=== PATIENT | female | born 1930 | race Caucasian/White ===

== ENCOUNTER 2016-05-25 03:45 | Emergency (ER) | payer MEDICARE, BC ==
[2016-05-25] MEDS ORDERED: Diltiazem 25 MG/5 ML SDV IVPUSH ONE ×2 (04:06→04:15)
--- NOTE | 2016-05-25 04:08 | EDM.PDOC ---
[id number] 4d CHEST PAINS Time Seen by Provider: 05/25/16 04:03 Source of Information: Reports: Patient History Limitations: Reports: No limitations - History of Present Illness INITIAL COMMENTS - FREE TEXT/NARRATIVE: 85 yo white female w/ PMMHx. A-Fib c/o awoke @ 1:30AM not feeling well then @ 2: 30AM developed Chest Pains with emesis Onset: gradual Onset Date: 05/25/16 Onset Time: 01:30 Duration: Hour(s): Location: Reports: chest Quality: Reports: Pressure Severity: moderate Chest Pain Score (Numeric/FACES): 6 - Related Data Allergies Allergy/AdvReac Type Severity Reaction Status Date / Time atorvastatin calcium Allergy Unknown UNKNOWN Verified 05/25/16 05:33 [From Lipitor] buprenorphine Allergy Unknown UNKNOWN Verified 05/25/16 05:33 diazepam [From Valium] Allergy Unknown UNKNOWN Verified 05/25/16 05:33 ezetimibe [From Vytorin] Allergy Unknown UNKNOWN Verified 05/25/16 05:33 lorazepam [From Ativan] Allergy Unknown UNKNOWN Verified 05/25/16 05:33 pentazocine lactate Allergy Unknown UNKNOWN Verified 05/25/16 05:33 [From Talwin] propoxyphene Allergy Unknown UNKNOWN Verified 05/25/16 05:33 rosuvastatin calcium Allergy Unknown UNKNOWN Verified 05/25/16 05:33 [From Crestor] simvastatin [From Vytorin] Allergy Unknown UNKNOWN Verified 05/25/16 05:33 codeine Allergy unknown Verified 05/25/16 05:33 morphine Allergy Itching Verified 05/25/16 05:33 nefazodone [Nefazodone] Allergy Insomnia Verified 05/25/16 05:33 oxycodone [Oxycodone] Allergy unknown Verified 05/25/16 05:33 trazodone Allergy Insomnia Verified 05/25/16 05:33 Home Meds: Home Meds Aspirin [Halfprin] 81 mg PO DAILY 10/31/13 [History] Nitroglycerin [Nitrostat] 0.4 mg PO ASDIRECTED PRN 10/31/13 [History] Pitavastatin Calcium [Livalo] 1 mg PO DAILY 08/01/14 [History] Acetaminophen [Acetaminophen Extra Strength] 500 mg PO Q6H PRN 12/14/14 [History ] Clopidogrel Bisulfate [Clopidogrel] 75 mg PO DAILY 09/10/15 [History] Pantoprazole Sodium [Protonix] 20 mg PO DAILY 09/10/15 [History] Diltiazem [Cardizem CD] 120 mg PO DAILY 30 Days 02/24/16 [Rx] Past Medical History Other HEENT History: wears corrective lenses; She has ringing ears both sides Cardiovascular History: Reports: Afib, High cholesterol Respiratory History: Reports: Bronchitis, recurrent Gastrointestinal History: Reports: GERD, Hemorrhoids Genitourinary History: Reports: Renal calculus Other OB/BYN History: 5 NVD and 1 miscarriage Musculoskeletal History: Reports: Arthritis Psychiatric History: Reports: Anxiety, Depression - Infectious Disease History Infectious Disease History: Reports: Chicken pox, Measles - Past Surgical History Cardiovascular Surgical History: Reports: Coronary artery stent Social & Family History - Family History Family Medical History: Noncontributory - Tobacco Use Smoking Status *Q: Never Smoker Second Hand Smoke Exposure: No - Caffeine Use Caffeine Use: Reports: None - Alcohol Use Days Per Week of Alcohol Use: 0 - Recreational Drug Use Recreational Drug Use: No ED ROS GENERAL - Review of Systems Review Of Systems: See Below Constitutional: Reports: no symptoms HEENT: Reports: No symptoms Respiratory: Reports: No Symptoms Cardiovascular: Reports: Chest pain Endocrine: Reports: no symptoms GI/Abdominal: Reports: No symptoms : Reports: no symptoms Musculoskeletal: Reports: no symptoms Skin: Reports: no symptoms Neurological: Reports: No Symptoms Psychiatric: Reports: No symptoms Hematologic/Lymphatic: Reports: no symptoms Immunologic: Reports: no symptoms ED EXAM, GENERAL - Physical Exam Exam: See Below Exam Limited By: No limitations General Appearance: alert, WD/WN Eye Exam: bilateral eye: PERRL Ears: normal external exam Nose: normal inspection Throat/Mouth: Normal inspection Head: atraumatic Neck: normal inspection Respiratory/Chest: no respiratory distress, lungs clear Cardiovascular: tachycardia, irregularly irregular Peripheral Pulses: 2+: carotid (L), carotid (R) Back Exam: normal inspection Extremities: normal inspection, normal range of motion Neurological: alert, oriented, CN II-XII intact, normal cognition Psychiatric: normal affect Skin Exam: Warm, Dry Course - Vital Signs Text/Narrative:: discussed case with patient's [facility]rier Dr. Zhang at [facility] in [place] Last Recorded V/S: Last Vital Signs Temp 35.9 C 05/25/16 03:56 Pulse 77 05/25/16 05:43 Resp 20 05/25/16 05:43 BP 124/73 05/25/16 05:43 Pulse Ox 100 05/25/16 05:43 - Orders/Labs/Meds Labs: Laboratory Tests 05/25/16 05/25/16 05/25/16 Range/Units 04:00 04:00 04:00 WBC 9.2 (5.0-10.0) 10^3/uL RBC 4.45 (4.2-5.4) 10^6/uL Hgb 14.2 (12.0-16.0) g/dL Hct 42.8 (37.0-47.0) % MCV 96.2 (80-100) fL MCH 31.9 (27.0-34.0) pg MCHC 33.2 (33.0-35.0) g/dL Plt Count 177 (150-450) 10^3/uL Neut % (Auto) 90.7 H (42.2-75.2) % Lymph % (Auto) 5.0 L (20.5-50.1) % [place] % (Auto) 3.8 (2-8) % Eos % (Auto) 0.4 L (1.0-3.0) % Baso % (Auto) 0.1 (0.0-1.0) % PT 9.9 (9.0-12.0) SEC INR 1.0 (0.9-1.2) D-Dimer, Quantitative 2160 H (0-400) ng/mL Sodium 142 (135-145) mmol/L Potassium 3.5 L (3.6-5.0) mmol/L Chloride 109 (101-111) mmol/L Carbon Dioxide 24.0 (21.0-31.0) mmol/L Anion Gap 12.5 BUN 12 (7-18) mg/dL Creatinine 0.6 (0.6-1.3) mg/dL Est Cr Clr Drug Dosing 66.51 mL/min Estimated GFR (MDRD) > 60 BUN/Creatinine Ratio 20.00 Glucose 128 H (74-105) mg/dL Calcium 8.9 (8.4-10.2) mg/dl Total Bilirubin 0.6 (0.2-1.0) mg/dL AST 17 (10-42) IU/L ALT 14 (10-60) IU/L Alkaline Phosphatase 39 L (42-121) IU/L Troponin I < 0.02 (0.00-0.02) ng/ml B-Natriuretic Peptide 145 H (0-100) pg/ml Total Protein 6.6 L (6.7-8.2) g/dl Albumin 4.0 (3.2-5.5) g/dl Globulin 2.6 Albumin/Globulin Ratio 1.54 Meds: Medications Discontinued Medications Generic Name Dose Route Start Last Admin Trade Name Freq PRN Reason Stop Dose Admin Digoxin 125 mcg 05/25/16 04:41 05/25/16 04:48 Lanoxin IVPUSH 05/25/16 04:42 125 mcg ONETIME ONE Administration Digoxin 125 mcg 05/25/16 04:44 05/25/16 06:03 Lanoxin IVPUSH 05/25/16 04:45 Not Given ONETIME ONE Diltiazem HCl 5 mg 05/25/16 04:06 05/25/16 04:10 Diltiazem IVPUSH 05/25/16 04:07 5 mg ONETIME ONE Administration Diltiazem HCl 25 mg 05/25/16 04:15 05/25/16 04:19 Diltiazem IVPUSH 05/25/16 04:16 20 mg ONETIME ONE Administration Sodium Chloride 1,000 mls @ 100 mls/hr 05/25/16 04:15 05/25/16 04:09 Normal Saline IV 100 mls/hr ASDIRECTED DEBBIE Administration Diltiazem HCl 100 mg/ Sodium 100 mls @ 5 mls/hr 05/25/16 04:30 Chloride IV TITRATE DEBBIE Protocol 5 MG/HR Sodium Chloride 1,000 mls @ 100 mls/hr 05/25/16 04:45 05/25/16 04:40 Normal Saline IV 100 mls/hr ASDIRECTED DEBBIE Administration Iopamidol 100 ml 05/25/16 04:53 05/25/16 05:28 Isovue-370 (76%) IVPUSH 05/25/16 04:54 73 ml ONETIME ONE Administration Ondansetron HCl 4 mg 05/25/16 04:13 05/25/16 04:17 Zofran IV 05/25/16 04:14 4 mg ONETIME ONE Administration Ondansetron HCl 4 mg 05/25/16 06:10 05/25/16 06:12 Zofran IV 05/25/16 06:11 4 mg ONETIME ONE Administration Ondansetron HCl Confirm 05/25/16 06:10 Zofran Administered 05/25/16 06:11 Dose 4 mg .ROUTE .STK-MED ONE Departure - Departure Time of Disposition: 06:45 Disposition: DC/Tfer to Other 70 Condition: fair Clinical Impression: Paroxysmal supraventricular tachycardia, Elevated d-dimer, Hypokalemia Forms: ED Department Discharge, Interfacility Transfer EMTALA
[2016-05-25] MEDS ORDERED: Ondansetron 4 MG/2 ML SDV IV ONE ×2 (04:13→06:10)
[2016-05-25] MEDS ORDERED: Sodium Chloride 0.9% 1,000 ML IV SCH ×2 (04:15→04:45)
[2016-05-25 04:27] LABS: CHLORIDE,CL 109 mmol/L (101-111); SODIUM,NA 142 mmol/L (135-145)
[2016-05-25] MEDS ORDERED: Diltiazem 100 MG in Sodium Chloride 0.9% 100 ML IV SCH (04:30)
[2016-05-25] MEDS ORDERED: Digoxin 500 MCG/2 ML Amp IVPUSH ONE ×2 (04:41→04:44)
[2016-05-25] MEDS ORDERED: Iopamidol 755 Mg/ML 100 ML Bottle IVPUSH ONE (04:53)
[2016-05-25 05:44] VITALS: BP 124/73
[2016-05-25] MEDS ORDERED: Ondansetron 4 MG/2 ML SDV ONE (06:10)
--- NOTE | 2016-07-26 10:52 | EKG ---
05/25/2016 - JOEY CASTANO - TIME: 03:46 p.m. EKG shows supraventricular tachycardia, rate of [address]- segment changes. [facility] /[id number]
== END 2016-05-25 06:36 | disposition other institution (70) ==
LOC: DL.ED 03:45
DX: I47.1 Supraventricular tachycardia (principal); E87.6 Hypokalemia; I48.91 Unspecified atrial fibrillation; E78.00 Pure hypercholesterolemia, unspecified; K21.9 Gastro-esophageal reflux disease without esophagitis; F41.9 Anxiety disorder, unspecified; F32.9 Major depressive disorder, single episode, unspecified; M19.90 Unspecified osteoarthritis, unspecified site; Z88.8 Allergy status to other drugs, medicaments and biological substances; Z88.5 Allergy status to narcotic agent; Z79.82 Long term (current) use of aspirin; Z79.899 Other long term (current) drug therapy
CPT/HCPCS: 36415; 71010; 71260; 80053; 83880; 84484; 85025; 85379; 85610; 96361; 96374; 96375; 96376; 99285; J1160; J2405; J7030; Q9967; J3490

== ENCOUNTER 2016-08-17 15:33 | Emergency (ER) | payer MEDICARE, BC ==
[2016-08-17 15:43] VITALS: BP 182/66
--- NOTE | 2016-08-17 16:45 | EDM.PDOC ---
ED HPI GENERAL MEDICAL PROBLEM - General Chief Complaint: Trauma Stated Complaint: FELL AND HAS OPEN CUTS ON HER ARM, [id number] Time Seen by Provider: 08/17/16 16:30 Source of Information: Reports: Patient History Limitations: Reports: No Limitations - History of Present Illness INITIAL COMMENTS - FREE TEXT/NARRATIVE: This 86 yo female patient reports to the ED with open wounds on her left elbow and left knee. The patient reports she was walking on the sidewalk and tripped over a small rise in the sidewalk. The patient reports she did lay on the ground for quite a while until a gentleman helped her up. The patient reports no pain in the areas and has been walking and moving both effected extremities. The patient is on blood thinner (Plavix). Onset: Today Duration: Minutes: Location: Reports: Upper Extremity, Left, Lower Extremity, Left Quality: Reports: Dull Severity: Moderate Improves with: Reports: None Worsens with: Reports: None Associated Symptoms: Reports: No Other Symptoms Left Arm Pain Score (Numeric/FACES): 1 - Related Data Allergies Allergy/AdvReac Type Severity Reaction Status Date / Time atorvastatin calcium Allergy Unknown UNKNOWN Verified 08/17/16 15:47 [From Lipitor] buprenorphine Allergy Unknown UNKNOWN Verified 08/17/16 15:47 diazepam [From Valium] Allergy Unknown UNKNOWN Verified 08/17/16 15:47 ezetimibe [From Vytorin] Allergy Unknown UNKNOWN Verified 08/17/16 15:47 lorazepam [From Ativan] Allergy Unknown UNKNOWN Verified 08/17/16 15:47 pentazocine lactate Allergy Unknown UNKNOWN Verified 08/17/16 15:47 [From Talwin] propoxyphene Allergy Unknown UNKNOWN Verified 08/17/16 15:47 rosuvastatin calcium Allergy Unknown UNKNOWN Verified 08/17/16 15:47 [From Crestor] simvastatin [From Vytorin] Allergy Unknown UNKNOWN Verified 08/17/16 15:47 codeine Allergy unknown Verified 08/17/16 15:47 morphine Allergy Itching Verified 08/17/16 15:47 nefazodone [Nefazodone] Allergy Insomnia Verified 08/17/16 15:47 oxycodone [Oxycodone] Allergy unknown Verified 08/17/16 15:47 trazodone Allergy Insomnia Verified 08/17/16 15:47 Home Meds: Home Meds Aspirin [Halfprin] 81 mg PO DAILY 10/31/13 [History] Nitroglycerin [Nitrostat] 0.4 mg PO ASDIRECTED PRN 10/31/13 [History] Acetaminophen [Acetaminophen Extra Strength] 500 mg PO Q6H PRN 12/14/14 [History ] Clopidogrel Bisulfate [Clopidogrel] 75 mg PO DAILY 09/10/15 [History] Pantoprazole Sodium [Protonix] 20 mg PO DAILY 09/10/15 [History] Digoxin 125 mcg PO DAILY 08/01/16 [History] Past Medical History HEENT History: Reports: Impaired Vision Other HEENT History: wears corrective lenses; She has ringing ears both sides Cardiovascular History: Reports: Afib, High Cholesterol Respiratory History: Reports: Bronchitis, Recurrent Gastrointestinal History: Reports: GERD, Hemorrhoids Genitourinary History: Reports: Renal Calculus Other OB/BYN History: 5 NVD and 1 miscarriage Musculoskeletal History: Reports: Arthritis Neurological History: Reports: None Psychiatric History: Reports: Anxiety, Depression Endocrine/Metabolic History: Reports: None Hematologic History: Reports: None Immunologic History: Reports: None Oncologic (Cancer) History: Reports: None Dermatologic History: Reports: None - Infectious Disease History Infectious Disease History: Reports: Chicken Pox, Measles - Past Surgical History Cardiovascular Surgical History: Reports: Coronary Artery Stent Social & Family History - Family History Family Medical History: Noncontributory - Tobacco Use Smoking Status *Q: Never Smoker Second Hand Smoke Exposure: No - Caffeine Use Caffeine Use: Reports: None - Alcohol Use Days Per Week of Alcohol Use: 0 - Recreational Drug Use Recreational Drug Use: No Review of Systems - Review of Systems Review Of Systems: ROS reveals no pertinent complaints other than HPI. ED EXAM, GENERAL - Physical Exam Exam: See Below Exam Limited By: No Limitations General Appearance: Alert, WD/WN, No Apparent Distress Eye Exam: Bilateral Eye: EOMI, Normal Inspection, PERRL Ears: Normal External Exam, Normal Canal, Hearing Grossly Normal, Normal TMs Nose: Normal Inspection, Normal Mucosa, No Blood Throat/Mouth: Normal Inspection, Normal Lips, Normal Teeth, Normal Gums, Normal Oropharynx, Normal Voice, No Airway Compromise Head: Atraumatic, Normocephalic Neck: Normal Inspection, Supple, Non-Tender, Full Range of Motion Respiratory/Chest: No Respiratory Distress, Lungs Clear, Normal Breath Sounds, No Accessory Muscle Use, Chest Non-Tender Cardiovascular: Normal Peripheral Pulses, Regular Rate, Rhythm, No Edema, No Gallop, No JVD, No Murmur, No Rub GI/Abdominal: Normal Bowel Sounds, Soft, Non-Tender, No Organomegaly, No Distention, No Abnormal Bruit, No Mass (Female) Exam: Deferred Rectal (Female) Exam: Deferred Back Exam: Normal Inspection, Full Range of Motion, NT Extremities: Normal Range of Motion, Non-Tender, No Pedal Edema, Normal Capillary Refill Neurological: Alert, Oriented, CN II-XII Intact, Normal Cognition, Normal Gait, Normal Reflexes, No Motor/Sensory Deficits Psychiatric: Normal Affect, Normal Mood Skin Exam: Warm, Dry, Normal Color, No Rash, Other (skin tears to the patient's left elbow (3 cm, 4 cm and 6 cm) and left knee (5 cm)) Lymphatic: No Adenopathy ED TRAUMA PROCEDURES - Laceration/Wound Repair Left Lateral Elbow Lac/Wound Length In cm: 13 (6 cm, 4 cm and 3 cm) Appearance: Superficial Distal NVT: Neuro & Vascular Intact Skin Prep: Saline Exploration/Debridement/Repair: Wound Explored, in a Bloodless Field, Explored to Base Closed With: Steri-Strips, Other (tegaderm) Sterile Dressing Applied: Nurse Tetanus Status Addressed: Yes Complications: No Left Lateral Knee Lac/Wound Length In cm: 5 Appearance: Superficial Distal NVT: Neuro & Vascular Intact Skin Prep: Saline Exploration/Debridement/Repair: Wound Explored Closed With: Steri-Strips Course - Vital Signs Last Recorded V/S: Last Vital Signs Temp 36.6 C 08/17/16 15:42 Pulse 91 08/17/16 15:42 Resp 20 08/17/16 15:42 BP 182/66 H 08/17/16 15:42 Pulse Ox 98 08/17/16 15:42 Departure - Departure Time of Disposition: 16:47 Disposition: Home, Self-Care 01 Condition: Fair Clinical Impression: Skin tear of elbow without complication Qualifiers: Encounter type: initial encounter Laterality: left Qualified Code(s): S51.012A - Laceration without foreign body of left elbow, initial encounter Skin tear of left lower leg without complication Qualifiers: Encounter type: initial encounter Qualified Code(s): S81.812A - Laceration without foreign body, left lower leg, initial encounter - Discharge Information Instructions: Laceration Care, Adult, Contusion, [id number] Forms: ED Department Discharge Care Plan Goals: The patient was advised of the examination results during the visit. The patient 's wounds were dressed while in the ED with good approximation of skin margins. The patient was encouraged to avoid removing the dressings until they fall off. If the patient has any additional symptoms or concerns, the patient should follow-up with her primary care facility or return to the emergency department.
== END 2016-08-17 17:18 | disposition home or self-care (01) ==
LOC: DL.ED 15:33
DX: S51.012A Laceration without foreign body of left elbow, initial encounter (principal); S81.812A Laceration without foreign body, left lower leg, initial encounter; I48.91 Unspecified atrial fibrillation; E78.00 Pure hypercholesterolemia, unspecified; K21.9 Gastro-esophageal reflux disease without esophagitis; F32.9 Major depressive disorder, single episode, unspecified; F41.9 Anxiety disorder, unspecified; Z95.4 Presence of other heart-valve replacement; Z79.82 Long term (current) use of aspirin; Z79.899 Other long term (current) drug therapy; Z88.8 Allergy status to other drugs, medicaments and biological substances; Z88.5 Allergy status to narcotic agent; Z88.6 Allergy status to analgesic agent; W01.0XXA Fall on same level from slipping, tripping and stumbling without subsequent striking against object, initial encounter
CPT/HCPCS: 99283; 99284

== ENCOUNTER 2016-09-08 19:05 | Emergency (ER) | payer MEDICARE, BC ==
--- NOTE | 2016-09-08 19:34 | EDM.PDOC ---
ED HPI GENERAL MEDICAL PROBLEM - General Chief Complaint: Neuro Symptoms/Deficits Stated Complaint: DIZZY [id number] Time Seen by Provider: 09/08/16 19:29 Source of Information: Reports: Patient History Limitations: Reports: No Limitations - History of Present Illness INITIAL COMMENTS - FREE TEXT/NARRATIVE: states hadn't been feeling well since April after her At Fib got out of control , been having dizziness on off since then but today it won't go away, saw PMD yesterday for this but nothing was done except for discussion about her catarract. denies vertigo sensation , no head congestion, no CP/SOB but been feeling weak without energy. appetite ok, not sure what's going on with her. - Related Data Allergies Allergy/AdvReac Type Severity Reaction Status Date / Time atorvastatin calcium Allergy Unknown UNKNOWN Verified 08/17/16 15:47 [From Lipitor] buprenorphine Allergy Unknown UNKNOWN Verified 08/17/16 15:47 diazepam [From Valium] Allergy Unknown UNKNOWN Verified 08/17/16 15:47 ezetimibe [From Vytorin] Allergy Unknown UNKNOWN Verified 08/17/16 15:47 lorazepam [From Ativan] Allergy Unknown UNKNOWN Verified 08/17/16 15:47 pentazocine lactate Allergy Unknown UNKNOWN Verified 08/17/16 15:47 [From Talwin] propoxyphene Allergy Unknown UNKNOWN Verified 08/17/16 15:47 rosuvastatin calcium Allergy Unknown UNKNOWN Verified 08/17/16 15:47 [From Crestor] simvastatin [From Vytorin] Allergy Unknown UNKNOWN Verified 08/17/16 15:47 codeine Allergy unknown Verified 08/17/16 15:47 morphine Allergy Itching Verified 08/17/16 15:47 nefazodone [Nefazodone] Allergy Insomnia Verified 08/17/16 15:47 oxycodone [Oxycodone] Allergy unknown Verified 08/17/16 15:47 trazodone Allergy Insomnia Verified 08/17/16 15:47 Home Meds: Home Meds Aspirin [Halfprin] 81 mg PO DAILY 10/31/13 [History] Nitroglycerin [Nitrostat] 0.4 mg PO ASDIRECTED PRN 10/31/13 [History] Acetaminophen [Acetaminophen Extra Strength] 500 mg PO Q6H PRN 12/14/14 [History ] Clopidogrel Bisulfate [Clopidogrel] 75 mg PO DAILY 09/10/15 [History] Pantoprazole Sodium [Protonix] 20 mg PO DAILY 09/10/15 [History] Digoxin 125 mcg PO DAILY 08/01/16 [History] Past Medical History HEENT History: Reports: Impaired Vision Other HEENT History: wears corrective lenses; She has ringing ears both sides Cardiovascular History: Reports: Afib, High Cholesterol Respiratory History: Reports: Bronchitis, Recurrent Gastrointestinal History: Reports: GERD, Hemorrhoids Genitourinary History: Reports: Renal Calculus Other OB/BYN History: 5 NVD and 1 miscarriage Musculoskeletal History: Reports: Arthritis Neurological History: Reports: None Psychiatric History: Reports: Anxiety, Depression Endocrine/Metabolic History: Reports: None Hematologic History: Reports: None Immunologic History: Reports: None Oncologic (Cancer) History: Reports: None Dermatologic History: Reports: None - Infectious Disease History Infectious Disease History: Reports: Chicken Pox, Measles - Past Surgical History Cardiovascular Surgical History: Reports: Coronary Artery Stent Social & Family History - Family History Family Medical History: Noncontributory - Tobacco Use Smoking Status *Q: Never Smoker Second Hand Smoke Exposure: No - Caffeine Use Caffeine Use: Reports: None - Alcohol Use Days Per Week of Alcohol Use: 0 - Recreational Drug Use Recreational Drug Use: No ED ROS GENERAL - Review of Systems Review Of Systems: ROS reveals no pertinent complaints other than HPI. ED EXAM, NEURO - Physical Exam Exam: See Below Exam Limited By: No Limitations General Appearance: Alert, WD/WN, Mild Distress, Other (distraught) Eye Exam: Bilateral Eye: PERRL (pupils ER @ 4mm) Ears: Hearing Grossly Normal Throat/Mouth: Normal Voice, No Airway Compromise Head Exam: Atraumatic Neck: Non-Tender, Full Range of Motion Respiratory/Chest: No Respiratory Distress Cardiovascular: Regular Rate, Rhythm GI/Abdominal: Soft, Non-Tender Neurological: Alert, No Motor/Sensory Deficits, Oriented x 3 Extremities: Pedal Edema (1+ bilateral) Psychiatric: Flat Affect Skin Exam: Warm, Dry Course - Vital Signs Last Recorded V/S: Last Vital Signs Temp 37.7 C 09/08/16 20:11 Pulse 86 09/08/16 20:11 Resp 24 H 09/08/16 20:11 BP 125/48 L 09/08/16 20:11 Pulse Ox 95 09/08/16 20:11 - Orders/Labs/Meds Orders: Active Orders 24 hr Category Date Time Status EKG Documentation Completion [RC] STAT Care 09/08/16 19:28 Active Labs: Laboratory Tests 09/08/16 09/08/16 09/08/16 Range/Units 19:17 19:35 19:35 WBC 3.6 L (5.0-10.0) 10^3/uL RBC 4.23 (4.2-5.4) 10^6/uL Hgb 13.1 (12.0-16.0) g/dL Hct 40.8 (37.0-47.0) % MCV 96.5 (80-100) fL MCH 31.0 (27.0-34.0) pg MCHC 32.1 L (33.0-35.0) g/dL Plt Count 170 (150-450) 10^3/uL Neut % (Auto) 87.3 H (42.2-75.2) % Lymph % (Auto) 7.2 L (20.5-50.1) % [place] % (Auto) 5.2 (2-8) % Eos % (Auto) 0.0 L (1.0-3.0) % Baso % (Auto) 0.3 (0.0-1.0) % Sodium 137 (135-145) mmol/L Potassium 3.6 (3.6-5.0) mmol/L Chloride 103 (101-111) mmol/L Carbon Dioxide 24.0 (21.0-31.0) mmol/L Anion Gap 13.6 BUN 11 (7-18) mg/dL Creatinine 0.7 (0.6-1.3) mg/dL Est Cr Clr Drug Dosing TNP Estimated GFR (MDRD) > 60 BUN/Creatinine Ratio 15.71 Glucose 187 H (74-105) mg/dL Calcium 8.8 (8.4-10.2) mg/dl Total Bilirubin 0.7 (0.2-1.0) mg/dL AST 28 (10-42) IU/L ALT 21 (10-60) IU/L Alkaline Phosphatase 53 (42-121) IU/L Troponin I 0.05 H* (0.00-0.02) ng/ml B-Natriuretic Peptide 313 H (0-100) pg/ml Total Protein 6.5 L (6.7-8.2) g/dl Albumin 3.5 (3.2-5.5) g/dl Globulin 3.0 Albumin/Globulin Ratio 1.17 Urine Color Yellow (YELLOW) Urine Appearance Slightly cloudy (CLEAR) Urine pH 7.0 (5.0-9.0) Ur Specific [place] 1.015 (1.005-1.030) Urine Protein 30 H (NEGATIVE) Urine Glucose (UA) Negative (NEGATIVE) Urine Ketones 15 H (NEGATIVE) Urine Occult Blood Negative (NEGATIVE) Urine Nitrite Negative (NEGATIVE) Urine Bilirubin Negative (NEGATIVE) Urine Urobilinogen >=8.0 H (0.2-1.0) mg/dL Ur Leukocyte Esterase Trace H (NEGATIVE) Urine RBC 0-5 /HPF Urine WBC 10-20 H (0-5/HPF) /HPF Ur Epithelial Cells Many H /HPF Urine Bacteria Many H (0-FEW/HPF) /HPF Urine Mucus Many H /LPF - Re-Assessments/Exams Free Text/Narrative Re-Assessment/Exam: 09/08/16 20:[address] Toussaint @ who kindly accepted Pt. Departure - Departure Time of Disposition: 20:27 Disposition: DC/Tfer to Acute Hospital 02 Condition: Good Clinical Impression: Elevated troponin I level, Dizziness - Discharge Information Forms: Interfacility Transfer EMTALA - My Orders Last 24 Hours: My Active Orders 09/08/16 19:28 EKG Documentation Completion [RC] STAT - Assessment/Plan Last 24 Hours: My Active Orders 09/08/16 19:28 EKG Documentation Completion [RC] STAT
[2016-09-08 20:05] LABS: CHLORIDE,CL 103 mmol/L (101-111); SODIUM,NA 137 mmol/L (135-145)
[2016-09-08 20:11] VITALS: BP 125/48
--- NOTE | 2016-09-12 10:32 | EKG ---
09/08/2016 - JOEY CASTANO I reviewed the EKG and agree with the machine's reading. [facility] /[id number]
== END 2016-09-08 20:55 ==
LOC: DL.ED 19:05
DX: R42 Dizziness and giddiness (principal); R79.89 Other specified abnormal findings of blood chemistry; I48.91 Unspecified atrial fibrillation; E78.00 Pure hypercholesterolemia, unspecified; K21.9 Gastro-esophageal reflux disease without esophagitis; F41.9 Anxiety disorder, unspecified; F32.9 Major depressive disorder, single episode, unspecified; Z95.5 Presence of coronary angioplasty implant and graft; Z79.82 Long term (current) use of aspirin; Z79.899 Other long term (current) drug therapy; Z88.5 Allergy status to narcotic agent
CPT/HCPCS: 36415; 70450; 71010; 80053; 81001; 83880; 84484; 85025; 93005; 93010; 99284; 99285

== ENCOUNTER 2016-09-12 10:12 | Inpatient (IN) | payer MEDICARE, BC ==
[2016-09-12] MEDS ORDERED: Nitroglycerin 0.4 MG Tab.SL SL PRN (16:11)
[2016-09-12] MEDS ORDERED: ACETAMINOPHEN 500 MG PO PRN (16:11)
[2016-09-12] MEDS ORDERED: BISACODYL 10 MG RECTAL PRN (16:11)
[2016-09-12] MEDS ORDERED: [UNRECOGNIZED DRUG - OTHER] PO PRN (16:11)
[2016-09-12] MEDS ORDERED: Ondansetron 4 MG Tab.DIS PO PRN (16:13)
[2016-09-12] MEDS ORDERED: Polyethylene Glycol 3350 Powder 17 GM Packet PO PRN (16:13)
--- NOTE | 2016-09-12 16:56 | PCM.HP ---
H&P History of Present Illness - General Date of Service: 09/12/16 Admit Problem/Dx: Admission Diagnosis/Problem Admission Diagnosis/Problem Weakness Source of Information: Patient History Limitations: Reports: No Limitations - History of Present Illness Initial Comments - Free Text/Narative: 86 y.o. female with past medical history of paroxysmal atrial fibrillation not on chronic anticoagulation due to gastrointestinal bleeding, coronary artery disease with history of NSTEMI status post bifurcation stenting to the ostial left circumflex and ostial left anterior descending artery with drug eluting stent, fibromyalgia, wilson's esophagus, chronic dizziness, benign positional vertigo, carotid artery disease, thoracic degenerative disease, depression, anxiety, diffuse idiopathic skeletal hyperostosis, dyslipidemia and GERD who was admitted to [facility] fordizziness and chest pain. Cardiac workup was negative, including troponin, EKG, evaluation by wire twister. Patient still reporting dizziness while she moves her head. The dizziness occurs while sitting or walking. She became and steady when the dizziness comes while walking. She does not have dizziness if she holds her head still. She was evaluated by physical therapy and it wasn't thought it's benign vertigo. She reported decrease in appetite. Patient denies chest pain, shortness breath, cough, fever, chills, nausea, vomiting, any other symptoms or concern. WBC 1.8 from workup done yesterday. Her UA was suspicious for UTI so she was started on Rocephin for 5 days and changed to Keflex today. However I do not see urine culture done. She reported that she was told that she needs to have cataract surgery done on the right eye. - Related Data Allergies/Adverse Reactions: Allergies Allergy/AdvReac Type Severity Reaction Status Date / Time trazodone Allergy Mild Insomnia Verified 09/12/16 12:15 atorvastatin calcium Allergy Unknown Muscle Verified 09/12/16 12:15 [From Lipitor] Aches buprenorphine Allergy Unknown UNKNOWN Verified 09/12/16 12:15 diazepam [From Valium] Allergy Unknown UNKNOWN Verified 09/12/16 12:15 ezetimibe [From Vytorin] Allergy Unknown Muscle Verified 09/12/16 12:15 Aches lorazepam [From Ativan] Allergy Unknown Depression Verified 09/12/16 12:15 pentazocine lactate Allergy Unknown UNKNOWN Verified 09/12/16 12:15 [From Talwin] propoxyphene Allergy Unknown UNKNOWN Verified 09/12/16 12:15 rosuvastatin calcium Allergy Unknown Muscle Verified 09/12/16 12:15 [From Crestor] Aches simvastatin [From Vytorin] Allergy Unknown Muscle Verified 09/12/16 12:15 Aches codeine Allergy unknown Verified 09/12/16 12:15 morphine Allergy Itching Verified 09/12/16 12:15 nefazodone [Nefazodone] Allergy Insomnia Verified 09/12/16 12:15 oxycodone [Oxycodone] Allergy confusion/s Verified 09/12/16 12:15 edation Home Medications: Home Meds Aspirin [Halfprin] 81 mg PO DAILY 10/31/13 [History] Nitroglycerin [Nitrostat] 0.4 mg PO ASDIRECTED PRN 10/31/13 [History] Acetaminophen [Acetaminophen Extra Strength] 500 mg PO Q6H PRN 12/14/14 [History ] Clopidogrel Bisulfate [Clopidogrel] 75 mg PO DAILY 09/10/15 [History] Pantoprazole Sodium [Protonix] 40 mg PO ACBREAKFAST 09/10/15 [History] Digoxin 125 mcg PO WITHLUNCH 08/01/16 [History] Bisacodyl [Dulcolax] 10 mg RECTAL DAILY PRN 09/12/16 [History] Cephalexin [Keflex] 500 mg PO BID 09/12/16 [History] Cyanocobalamin (Vitamin B-12) [B-12] 1,000 mcg PO DAILY 09/12/16 [History] Potassium Chloride [Klor-Con] 20 meq PO BID 09/12/16 [History] diphenhydrAMINE HCl [Z-Sleep] 30 ml PO BEDTIME 09/12/16 [History] Past Medical History HEENT History: Reports: Cataract, Impaired Vision Other HEENT History: wears corrective lenses, occipital neuralgia Cardiovascular History: Reports: Afib, CAD, High Cholesterol, [place] Respiratory History: Reports: Bronchitis, Recurrent, Pneumonia, Recurrent, Sleep Apnea, Other (See Below) Other Respiratory History: Recurrent aspiration bronchitis/pneumonia Gastrointestinal History: Reports: GERD, GI Bleed, Hemorrhoids, Inflammatory Bowel Disease, Other (See Below) Other Gastrointestinal History: Wilson's esophagus, duodenitis Genitourinary History: Reports: Renal Calculus [employer] 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[employer]OC[employer]ATE History: Reports: Other OB/BYN History: 5 NVD and 1 miscarriage Musculoskeletal History: Reports: Arthritis, Fibromyalgia, Osteoarthritis, Other (See Below) Other Musculoskeletal History: Forestier's disease, DDD, Fall Neurological History: Reports: Vertigo Psychiatric History: Reports: Anxiety, Depression, Other (See Below) Other Psychiatric History: Insomnia, mild memory impairment Endocrine/Metabolic History: Reports: Osteopenia Hematologic History: Reports: Anticoagulation Therapy, Other (See Below) Other Hematologic History: on Plavix for atrial fib Immunologic History: Reports: None Oncologic (Cancer) History: Reports: None Dermatologic History: Reports: None - Infectious Disease History Infectious Disease History: Reports: Chicken Pox, Measles - Past Surgical History HEENT Surgical History: Reports: Adenoidectomy, Tonsillectomy Cardiovascular Surgical History: Reports: Coronary Artery Stent, Varicose Respiratory Surgical History: Reports: None GI Surgical History: Reports: Cholecystectomy, Colonoscopy, EGD, Other (See Below) Other GI Surgeries/Procedures: Tubular Adenoma of colon Female Surgical History: Reports: Hysterectomy, Kidney stone extraction Neurological Surgical History: Reports: None Social & Family History - Family History Family Medical History: Noncontributory - Tobacco Use Smoking Status *Q: Never Smoker Second Hand Smoke Exposure: No - Caffeine Use Caffeine Use: Reports: None - Alcohol Use Days Per Week of Alcohol Use: 0 - Recreational Drug Use Recreational Drug Use: No H&P Review of Systems - Review of Systems: Review Of Systems: See Below General: Denies: Fever, Chills, Night Sweats, Diaphoresis HEENT: Reports: No Symptoms. Denies: Dysphasia, Ear Pain, Eye Pain, Headaches, Rhinitis, Post Nasal Drip Pulmonary: Reports: No Symptoms Cardiovascular: Reports: No Symptoms Gastrointestinal: Reports: No Symptoms Genitourinary: Reports: No Symptoms Musculoskeletal: Reports: No Symptoms Skin: Reports: No Symptoms Psychiatric: Reports: No Symptoms Neurological: Reports: Dizziness. Denies: Headache, Paresthesia, Seizure, Syncope, Tingling, Change in Speech Hematologic/Lymphatic: Reports: No Symptoms Immunologic: Reports: No Symptoms Exam - Exam Exam: See Below - Vital Signs Vital Signs: Last Vital Signs Temp 36.9 C 09/12/16 14:38 Pulse 75 09/12/16 14:38 Resp 20 09/12/16 14:38 BP 130/52 L 09/12/16 14:38 Pulse Ox 100 09/12/16 14:38 Weight: 66.406 kg - Exam General: Alert, Oriented, Cooperative. No: Mild Distress, Moderate Distress, Severe Distress, Sedated, Lethargic, Obtunded HEENT: Conjunctiva Clear, EACs Clear, EOMI, Hearing Intact, Mucosa Moist & [place] , Nares Patent, Normal Nasal Septum, Posterior Pharynx Clear, Pupils Equal, Pupils Reactive, TMs Clear Neck: Supple, Trachea Midline, +2 Carotid Pulse wo Bruit Lungs: Clear to Auscultation, Normal Respiratory Effort Cardiovascular: Regular Rate, Regular Rhythm GI/Abdominal Exam: Normal Bowel Sounds, Soft, Non-Tender, No Organomegaly, No Distention, No Abnormal Bruit, No Mass (Female) Exam: Deferred Rectal (Female) Exam: Deferred Back Exam: Normal Inspection, Full Range of Motion. No: CVA Tenderness (L), CVA Tenderness (R) Extremities: Normal Inspection, Normal Range of Motion, Non-Tender, No Pedal Edema, Normal Capillary Refill Skin: Warm, Dry, Intact Neurological: Cranial Nerves Intact Neuro Extensive - Mental Status: Alert, Oriented x3, Normal Mood/Affect, Normal Cognition Neuro Extensive - Motor, Sensory, Reflexes: CN II-XII Intact Psychiatric: Alert, Normal Affect, Normal Mood *Q Meaningful Use (ADM) - VTE *Q VTE Criteria *Q: - Stroke *Q Stroke Criteria *Q: - AMI *Q AMI Criteria *Q: Problem List Initiated/Reviewed/Updated: Yes Orders Last 24hrs: Active Orders 24 hr Category Date Time Status Patient Status [ADT] Routine ADT 09/12/16 16:13 Active Ambulate [RC] ASDIRECTED Care 09/12/16 16:13 Active Antiembolic Devices [RC] Care 09/12/16 16:15 Active Height and Weight [RC] .wed Care 09/12/16 16:14 Active Intake and Output [RC] ASDIRECTED Care 09/12/16 16:13 Active May Shower [RC] ASDIRECTED Care 09/12/16 16:13 Active Notify Provider Vital Signs [RC] Care 09/12/16 16:14 Active Oxygen Therapy [RC] PRN Care 09/12/16 16:13 Active Up ad Kayla [RC] ASDIRECTED Care 09/12/16 16:13 Active VTE/DVT Education [RC] PER UNIT ROUTINE Care 09/12/16 16:13 Active Vital Signs [RC] .shift Care 09/12/16 16:13 Active OT Evaluation and Treatment [CONS] Routine Cons 09/12/16 16:13 Active PT Evaluation and Treatment [CONS] Routine Cons 09/12/16 16:13 Active Regular Diet [DIET] Diet 09/12/16 Breakfast Active CBC WITH AUTO DIFF [HEME] AM Lab 09/15/16 05:11 Ordered Acetaminophen [Acetaminophen Extra Strength] Med 09/12/16 16:11 Ordered 500 mg PO Q6H PRN Aspirin [Halfprin] Med 09/13/16 09:00 Ordered 81 mg PO DAILY Bisacodyl [Dulcolax] Med 09/12/16 16:11 Ordered 10 mg RECTAL DAILY PRN Cephalexin [Keflex] Med 09/12/16 21:00 Ordered 500 mg PO BID Clopidogrel Bisulfate [Clopidogrel] Med 09/13/16 09:00 Ordered 75 mg PO DAILY Cyanocobalamin (Vitamin B-12) [B-12] Med 09/13/16 09:00 Ordered 1,000 mcg PO DAILY Digoxin [Digoxin] Med 09/13/16 12:00 Ordered 125 mcg PO WITHLUNCH Nitroglycerin [Nitrostat] Med 09/12/16 16:11 Ordered 0.4 mg PO ASDIRECTED PRN Ondansetron [Zofran ODT] Med 09/12/16 16:13 Ordered 4 mg PO Q6H PRN Pantoprazole Sodium [Protonix] Med 09/13/16 06:00 Ordered 40 mg PO ACBREAKFAST Polyethylene Glycol 3350 [MiraLAX] Med 09/12/16 16:13 Ordered 17 gm PO DAILY PRN Potassium Chloride [Klor-Con] Med 09/12/16 21:00 Ordered 20 meq PO BID diphenhydrAMINE HCl [Z-Sleep] Med 09/12/16 21:00 Ordered 30 ml PO BEDTIME Antiembolic Hose [OM.PC] Routine Oth 09/12/16 16:13 Ordered Resuscitation Status Routine Resus Stat 09/12/16 16:13 Ordered Medication Orders Non-Formulary Medication (Acetaminophen [Acetaminophen Extra Strength]) 500 mg PO Q6H PRN PRN Reason: Pain Non-Formulary Medication (Aspirin [Halfprin]) 81 mg PO DAILY DEB[facility] Non-Formulary Medication (Bisacodyl [Dulcolax]) 10 mg RECTAL DAILY PRN PRN Reason: Constipation Non-Formulary Medication (Cephalexin [Keflex]) 500 mg PO BID [facility] Stop: 09/17/16 21:01 Non-Formulary Medication (Clopidogrel Bisulfate [Clopidogrel]) 75 mg PO DAILY [facility] Non-Formulary Medication (Cyanocobalamin (Vitamin B-12) [B-12]) 1,000 mcg PO DAILY DEB[facility] Non-Formulary Medication (Digoxin [Digoxin]) 125 mcg PO WITHLUNCH [facility] Non-Formulary Medication (Nitroglycerin [Nitrostat]) 0.4 mg PO ASDIRECTED PRN PRN Reason: Chest Pain Non-Formulary Medication (Pantoprazole Sodium [Protonix]) 40 mg PO ACBREAKFAST [facility] Non-Formulary Medication (Potassium Chloride [Klor-Con]) 20 meq PO BID [facility] Non-Formulary Medication (Diphenhydramine Hcl [Z-Sleep]) 30 ml PO BEDTIME [facility] Ondansetron HCl (Zofran Odt) 4 mg PO Q6H PRN PRN Reason: nausea, able to take PO Polyethylene Glycol (Miralax) 17 gm PO DAILY PRN PRN Reason: Constipation Assessment/Plan Comment:: Dizziness, multifactorial. She has history of benign proximal vertigo 20 years ago treated with Emanuel maneuver Consult PT/14 Decreased appetite Megace 400 mg 3 times a day Ensure 3 times a day was minimal UTI Continue Keflex for another 5 days Paroxysmal A-fib Continue digoxin It was recommended by wire twister to be on patch for rhythm monitor as an outpatient for a minimum of 14 days H/o CAD Continue aspirin and Plavix GERD Continue on pantoprazole She was to be full code ANA rodriguez for DVT prophylaxis
[2016-09-12] MEDS: POTASSIUM CHLORIDE 20 MEQ PO SCH (18:00)
[2016-09-12] MEDS: MEGESTROL 40 MG/ML PO SCH (21:00)
[2016-09-12] MEDS: CEPHALEXIN 500 MG PO SCH (21:00)
[2016-09-12] MEDS: DIPHENHYDRAMINE HCL PO SCH (21:03)
[2016-09-13] MEDS: PANTOPRAZOLE 40 MG PO SCH (05:41)
[2016-09-13] MEDS: CEPHALEXIN 500 MG PO SCH ×2 (10:21→20:33)
[2016-09-13] MEDS: POTASSIUM CHLORIDE 20 MEQ PO SCH ×2 (10:22→17:53)
[2016-09-13] MEDS: Aspirin 81 MG Tab.EC **PT OWN MED PO SCH (10:22)
[2016-09-13] MEDS: MEGESTROL 40 MG/ML PO SCH ×3 (10:23→20:34)
[2016-09-13] MEDS: CLOPIDOGREL 75 MG PO SCH (10:23)
[2016-09-13] MEDS: CYANOCOBALAMIN 1000 MCG PO SCH (10:24)
[2016-09-13] MEDS: DIGOXIN 125 MCG PO SCH (13:18)
[2016-09-13] MEDS: DIPHENHYDRAMINE HCL PO SCH (20:35)
[2016-09-14] MEDS: PANTOPRAZOLE 40 MG PO SCH (05:52)
[2016-09-14] MEDS: Aspirin 81 MG Tab.EC **PT OWN MED PO SCH (08:25)
[2016-09-14] MEDS: CYANOCOBALAMIN 1000 MCG PO SCH (08:25)
[2016-09-14] MEDS: CEPHALEXIN 500 MG PO SCH ×2 (08:26→21:24)
[2016-09-14] MEDS: MEGESTROL 40 MG/ML PO SCH ×3 (08:27→21:24)
[2016-09-14] MEDS: POTASSIUM CHLORIDE 20 MEQ PO SCH ×2 (08:27→17:41)
[2016-09-14] MEDS: CLOPIDOGREL 75 MG PO SCH (08:27)
[2016-09-14] MEDS: DIGOXIN 125 MCG PO SCH (12:37)
[2016-09-14] MEDS: DIPHENHYDRAMINE HCL PO SCH (21:24)
[2016-09-15] MEDS: PANTOPRAZOLE 40 MG PO SCH (06:18)
[2016-09-15 07:52] VITALS: BP 123/51
[2016-09-15] MEDS: POTASSIUM CHLORIDE 20 MEQ PO SCH (09:32)
[2016-09-15] MEDS: Aspirin 81 MG Tab.EC **PT OWN MED PO SCH (09:33)
[2016-09-15] MEDS: CLOPIDOGREL 75 MG PO SCH (09:33)
[2016-09-15] MEDS: CYANOCOBALAMIN 1000 MCG PO SCH (09:33)
[2016-09-15] MEDS: CEPHALEXIN 500 MG PO SCH (09:33)
[2016-09-15] MEDS: MEGESTROL 40 MG/ML PO SCH ×2 (09:34→14:28)
[2016-09-15] MEDS: DIGOXIN 125 MCG PO SCH (12:13)
--- NOTE | 2016-09-15 12:29 | PCM.DCSUM1 ---
Discharge Summary - Discharge Data Discharge Date: 09/15/16 Discharge Disposition: Home, Self-Care 01 Condition: Good - Patient Summary/Data Consults: Consultations 09/12/16 16:13 OT Evaluation and Treatment [CONS] Routine PT Evaluation and Treatment [CONS] Routine - Patient Instructions Activity: As Tolerated Showering/Bathing: June Shower Notify Provider of: Fever, Nausea and/or Vomiting - Discharge Plan Prescriptions/Med Rec: Cephalexin [Keflex] 500 mg PO BID #6 cap Home Medications: Home Meds Aspirin [Halfprin] 81 mg PO DAILY 10/31/13 [History] Nitroglycerin [Nitrostat] 0.4 mg PO ASDIRECTED PRN 10/31/13 [History] Acetaminophen [Acetaminophen Extra Strength] 500 mg PO Q6H PRN 12/14/14 [History ] Clopidogrel Bisulfate [Clopidogrel] 75 mg PO DAILY 09/10/15 [History] Pantoprazole Sodium [Protonix] 40 mg PO ACBREAKFAST 09/10/15 [History] Digoxin 125 mcg PO WITHLUNCH 08/01/16 [History] Bisacodyl [Dulcolax] 10 mg RECTAL DAILY PRN 09/12/16 [History] Cyanocobalamin (Vitamin B-12) [B-12] 1,000 mcg PO DAILY 09/12/16 [History] Potassium Chloride [Klor-Con] 20 meq PO BID 09/12/16 [History] diphenhydrAMINE HCl [Z-Sleep] 30 ml PO BEDTIME 09/12/16 [History] Cephalexin [Keflex] 500 mg PO BID #6 cap 09/15/16 [Rx] Patient Handouts: Cephalexin tablets or capsules - General Info Date of Service: 09/15/16 Admission Dx/Problem (Free Text: Admission Diagnosis/Problem Admission Diagnosis/Problem Weakness Subjective Update: The patient is an 86-year-old female with medical history PAROXYSMAL atrial fibrillation not on anticoagulation because of previous gastrointestinal bleeding. She also has coronary artery disease with prior history of non-ST elevation myocardial infarction, fibromyalgia dizziness benign positional vertigo, to Dr. cooper longoria. The patient was transferred to swing bed from HOSPITAL because of dizziness.. The dizziness is felt to be multifactorial. She has chronic dizziness and also has had intermittent benign. Paroxysmal vertigo. The patient was started on physical pressure therapy and did well. She feels that she is back to her baseline OB discharged home. The patient was found to have urinary tract infection. She was treated with Keflex continue with that for another 3 days Final diagnoses: Dizziness Urinary tract infection Paroxysmal atrial fibrillation Coronary artery disease Gastrointestinal reflux disease - Review of Systems General: Reports: No Symptoms HEENT: Reports: No Symptoms Pulmonary: Reports: No Symptoms Cardiovascular: Reports: No Symptoms Gastrointestinal: Reports: No Symptoms Genitourinary: Reports: No Symptoms Musculoskeletal: Reports: No Symptoms Skin: Reports: No Symptoms Neurological: Reports: No Symptoms Psychiatric: Reports: No Symptoms - Patient Data Vitals - Most Recent: Last Vital Signs Temp 36.4 C 09/15/16 07:45 Pulse 72 09/15/16 12:13 Resp 16 09/15/16 07:45 BP 123/51 L 09/15/16 07:45 Pulse Ox 96 09/15/16 07:45 Weight - Most Recent: 63.775 kg I&O - Last 24 hours: Intake & Output 09/14/16 09/15/16 09/15/16 22:59 06:59 14:59 Intake Total 500 150 320 Balance 500 150 320 Lab Results - Last 24 hrs: Laboratory Results - last 24 hr 09/15/16 Range/Units 06:17 WBC 4.7 L (5.0-10.0) 10^3/uL RBC 3.69 L (4.2-5.4) 10^6/uL Hgb 11.4 L (12.0-16.0) g/dL Hct 35.3 L (37.0-47.0) % MCV 95.7 (80-100) fL MCH 30.9 (27.0-34.0) pg MCHC 32.3 L (33.0-35.0) g/dL Plt Count 224 (150-450) 10^3/uL Neut % (Auto) 74.9 (42.2-75.2) % Lymph % (Auto) 13.3 L (20.5-50.1) % [place] % (Auto) 10.3 H (2-8) % Eos % (Auto) 1.3 (1.0-3.0) % Baso % (Auto) 0.2 (0.0-1.0) % Med Orders - Current: Current Medications Acetaminophen (Tylenol Extra Strength) 500 mg PO Q6H PRN PRN Reason: Pain Aspirin (Halfprin) 81 mg PO DAILY [facility] Last Admin: 09/15/16 09:33 Dose: 81 mg Bisacodyl (Dulcolax) 10 mg RECTAL DAILY PRN PRN Reason: Constipation Cephalexin (Keflex) 500 mg PO BID [facility] Stop: 09/17/16 21:01 Last Admin: 09/15/16 09:33 Dose: 500 mg Clopidogrel Bisulfate (Plavix) 75 mg PO DAILY [facility] Last Admin: 09/15/16 09:33 Dose: 75 mg Digoxin (Lanoxin) 125 mcg PO WITHLUNCH [facility] Last Admin: 09/15/16 12:13 Dose: 125 mcg Megestrol Acetate (Megace 40 Mg/Ml Susp) 400 mg PO TID [facility] Last Admin: 09/15/16 09:34 Dose: 400 mg Nitroglycerin (Nitrostat) 0.4 mg SL Q5M PRN PRN Reason: Chest Pain Ondansetron HCl (Zofran Odt) 4 mg PO Q6H PRN PRN Reason: nausea, able to take PO Pantoprazole Sodium (Protonix) 40 mg PO ACBREAKFAST [facility] Last Admin: 09/15/16 06:18 Dose: 40 mg Cyanocobalamin ( Vitamin B-12) 1,000 McgPt's Own Med 0 each PO DAILY [facility] Last Admin: 09/15/16 09:33 Dose: 1 each Potassium Chloride [ Klor-Con] 20 MeqPt 's Own Med 0 each PO BIDMEALS [facility] Last Admin: 09/15/16 09:32 Dose: 1 each Diphenhydramine Hcl [Z-Sleep] 30 MlPt 's Own Med 0 each PO BEDTIME [facility] Last Admin: 09/14/16 21:24 Dose: 1 each Polyethylene Glycol (Miralax) 17 gm PO DAILY PRN PRN Reason: Constipation - Exam General: Reports: cooperative, no acute distress HEENT: Reports: Pupils equal, Pupils reactive, EOMI, Mucous membr. moist/pink Lungs: Reports: Clear to Auscultation, Normal Respiratory Effort Cardiovascular: Reports: Regular Rate, Regular Rhythm Back Exam: Reports: Normal Inspection, Full Range of Motion Extremities: Normal Inspection, Normal Range of Motion, Non-Tender, No Pedal Edema, Normal Capillary Refill *Q Meaningful Use (DIS) - VTE *Q VTE Criteria *Q: - Stroke *Q Stroke Criteria *Q: - AMI *Q AMI Criteria *Q:
--- NOTE | 2016-09-15 16:04 | US ---
Clinical history: 86-year-old female reported to have "abnormal thyroid gland" on recent MRI cervica l spine (T2 hyperintense lesion right lobe measures 13 mm diameter). INDICATION: Multiple nodules thyroid gland, bilaterally (both cystic and solid). Right lobe of the thyroid gland measures 4.5 cm L x 1.7 cm W x 2.4 cm AP diameter (normal size and c onfiguration) with 5 distinct nodules, primarily cystic, in upper, mid and lower poles (largest in t he midpole measures 1.8 x 1.4 cm diameter). Left lobe of the thyroid gland also normal size and anatomic configuration measures 3.9 cm L x 1.5 c m W x 2.0 cm AP diameter and has tiny nodules ranging in size from 5 to 6 mm diameter located respec tively in the upper and lower poles (lower pole relatively avascular solid appearing tiny nodule). Normal homogeneous density thyroid isthmus. Note: None of these primarily cystic nodules is associated with abnormal vascularity.
== END 2016-09-15 14:15 | disposition home or self-care (01) | DRG 149 ==
LOC: EEVIPCON → DL.MS 14:12 → UNDOADMIN 14:12 → DL.MS 16:13
PROVIDERS: ADMIT Family Medicine; ATTEND Family Medicine
DX: R42 Dizziness and giddiness (principal); N39.0 Urinary tract infection, site not specified; H81.10 Benign paroxysmal vertigo, unspecified ear; I48.0 Paroxysmal atrial fibrillation; I25.2 Old myocardial infarction; I25.10 Atherosclerotic heart disease of native coronary artery without angina pectoris; M79.7 Fibromyalgia; E78.5 Hyperlipidemia, unspecified; K21.9 Gastro-esophageal reflux disease without esophagitis; G47.30 Sleep apnea, unspecified; E78.00 Pure hypercholesterolemia, unspecified; Z79.82 Long term (current) use of aspirin; Z79.899 Other long term (current) drug therapy; Z95.5 Presence of coronary angioplasty implant and graft; F32.9 Major depressive disorder, single episode, unspecified; F41.9 Anxiety disorder, unspecified; M19.90 Unspecified osteoarthritis, unspecified site; Z88.6 Allergy status to analgesic agent; Z88.5 Allergy status to narcotic agent; Z91.09 Other allergy status, other than to drugs and biological substances
CPT/HCPCS: 36415; 76536; 85025; 97110-GP; 97116-GP; 97161-GP; 97165-GO; 97530-GO; 97530-GP; 97535-GO; A9270-GY

== ENCOUNTER 2016-09-19 22:36 | Emergency (ER) | payer MEDICARE, BC ==
[2016-09-19 23:01] VITALS: BP 178/62
[2016-09-20 00:11] LABS: CHLORIDE,CL 105 mmol/L (101-111); SODIUM,NA 140 mmol/L (135-145)
--- NOTE | 2016-09-20 00:20 | EDM.PDOC ---
ED HPI GENERAL MEDICAL PROBLEM - General Chief Complaint: Abdominal Pain Stated Complaint: IN BY AMBULANCE Time Seen by Provider: 09/19/16 22:45 Source of Information: Reports: Patient History Limitations: Reports: No Limitations - History of Present Illness INITIAL COMMENTS - FREE TEXT/NARRATIVE: ED via [facility] with c/o sudden onset of RUQ pain while in ped radiates around back below ribs, Notes constipated, Last BM 4 days ago. Recent hopitalization and diagnosed with UTI, has been on Keflex. Prior remote GB removal, No nausea or fever. Onset: Today Location: Reports: Abdomen Right Upper Abdomen Pain Score (Numeric/FACES): 9 - Related Data Allergies Allergy/AdvReac Type Severity Reaction Status Date / Time trazodone Allergy Mild Insomnia Verified 09/12/16 12:15 atorvastatin calcium Allergy Unknown Muscle Verified 09/12/16 12:15 [From Lipitor] Aches buprenorphine Allergy Unknown UNKNOWN Verified 09/12/16 12:15 diazepam [From Valium] Allergy Unknown UNKNOWN Verified 09/12/16 12:15 ezetimibe [From Vytorin] Allergy Unknown Muscle Verified 09/12/16 12:15 Aches lorazepam [From Ativan] Allergy Unknown Depression Verified 09/12/16 12:15 pentazocine lactate Allergy Unknown UNKNOWN Verified 09/12/16 12:15 [From Talwin] propoxyphene Allergy Unknown UNKNOWN Verified 09/12/16 12:15 rosuvastatin calcium Allergy Unknown Muscle Verified 09/12/16 12:15 [From Crestor] Aches simvastatin [From Vytorin] Allergy Unknown Muscle Verified 09/12/16 12:15 Aches codeine Allergy unknown Verified 09/12/16 12:15 morphine Allergy Itching Verified 09/12/16 12:15 nefazodone [Nefazodone] Allergy Insomnia Verified 09/12/16 12:15 oxycodone [Oxycodone] Allergy confusion/s Verified 09/12/16 12:15 edation Home Meds: Home Meds Aspirin [Halfprin] 81 mg PO DAILY 10/31/13 [History] Nitroglycerin [Nitrostat] 0.4 mg PO ASDIRECTED PRN 10/31/13 [History] Acetaminophen [Acetaminophen Extra Strength] 500 mg PO Q6H PRN 12/14/14 [History ] Clopidogrel Bisulfate [Clopidogrel] 75 mg PO DAILY 09/10/15 [History] Pantoprazole Sodium [Protonix] 40 mg PO ACBREAKFAST 09/10/15 [History] Digoxin 125 mcg PO WITHLUNCH 08/01/16 [History] Cyanocobalamin (Vitamin B-12) [B-12] 1,000 mcg PO DAILY 09/12/16 [History] Potassium Chloride [Klor-Con] 20 meq PO BID 09/12/16 [History] diphenhydrAMINE HCl [Z-Sleep] 30 ml PO BEDTIME 09/12/16 [History] Cephalexin [Keflex] 500 mg PO BID #6 cap 09/15/16 [Rx] Past Medical History HEENT History: Reports: Cataract, Impaired Vision Other HEENT History: wears corrective lenses, occipital neuralgia Cardiovascular History: Reports: Afib, CAD, High Cholesterol Respiratory History: Reports: Bronchitis, Recurrent Other Respiratory History: Recurrent aspiration bronchitis/pneumonia Gastrointestinal History: Reports: Chronic Constipation, GERD, Hemorrhoids Other Gastrointestinal History: Kendrick's esophagus, duodenitis Genitourinary History: Reports: Renal Calculus [employer] History: Reports: Other (See Below) Other OB/BYN History: 5 NVD and 1 miscarriage Musculoskeletal History: Reports: Arthritis Other Musculoskeletal History: Forestier's disease, DDD, Fall Neurological History: Reports: Vertigo Psychiatric History: Reports: Anxiety, Depression Other Psychiatric History: Insomnia, mild memory impairment Endocrine/Metabolic History: Reports: Osteopenia Hematologic History: Reports: Anticoagulation Therapy, Other (See Below) Other Hematologic History: on Plavix for atrial fib Immunologic History: Reports: None Oncologic (Cancer) History: Reports: None Dermatologic History: Reports: None - Infectious Disease History Infectious Disease History: Reports: Chicken Pox, Measles - Past Surgical History HEENT Surgical History: Reports: Adenoidectomy, Tonsillectomy Cardiovascular Surgical History: Reports: Coronary Artery Stent GI Surgical History: Reports: Appendectomy, Cholecystectomy, Colostomy, EGD Female Surgical History: Reports: Hysterectomy, Kidney stone extraction Neurological Surgical History: Reports: None Social & Family History - Family History Family Medical History: Noncontributory - Tobacco Use Smoking Status *Q: Never Smoker Second Hand Smoke Exposure: No - Caffeine Use Caffeine Use: Reports: None - Alcohol Use Days Per Week of Alcohol Use: 0 - Recreational Drug Use Recreational Drug Use: No ED ROS GENERAL - Review of Systems Review Of Systems: See Below Constitutional: Denies: Fever, Chills, Decreased Appetite HEENT: Reports: No Symptoms Respiratory: Reports: No Symptoms Cardiovascular: Reports: No Symptoms GI/Abdominal: Reports: Abdominal Pain (RUQ sharp worse with movment and deep breath slight improvment after small hard stool), Flatus : Reports: No Symptoms Musculoskeletal: Reports: No Symptoms Skin: Reports: No Symptoms Neurological: Reports: No Symptoms ED EXAM, GI/ABD - Physical Exam Exam: See Below Exam Limited By: No Limitations General Appearance: Alert, Anxious, Mild Distress Eyes: Bilateral: EOMI Ears: Normal External Exam Nose: Normal Inspection Throat/Mouth: Normal Lips, Normal Voice Head: Atraumatic, Other Neck: Normal Inspection Respiratory/Chest: No Respiratory Distress, Lungs Clear, Normal Breath Sounds Cardiovascular: Normal Peripheral Pulses, Regular Rate, Rhythm GI/Abdominal Exam: Normal Bowel Sounds, Distended (mild lower). No: Rebound Back Exam: Normal Inspection Extremities: Normal Inspection Neurological: Alert, Oriented, Normal Cognition Psychiatric: Normal Affect, Normal Mood Skin Exam: Warm, Dry, Intact, Ecchymosis (multiple small scattered purple bruises, older superficial skin tear to left elbow. ). No: Increased Warmth, Jaundice Course - Vital Signs Last Recorded V/S: Last Vital Signs Temp 98.4 F 09/19/16 22:36 Pulse 85 09/19/16 22:36 Resp 18 09/19/16 22:36 BP 178/62 H 09/19/16 22:36 Pulse Ox 100 09/19/16 22:36 - Orders/Labs/Meds Orders: Active Orders 24 hr Category Date Time Status Enema [RC] ASDIRECTED Care 09/20/16 00:14 Active Labs: Laboratory Tests 09/19/16 09/19/16 Range/Units 23:45 23:45 WBC 9.3 (5.0-10.0) 10^3/uL RBC 4.23 (4.2-5.4) 10^6/uL Hgb 12.9 (12.0-16.0) g/dL Hct 40.9 (37.0-47.0) % MCV 96.7 (80-100) fL MCH 30.5 (27.0-34.0) pg MCHC 31.5 L (33.0-35.0) g/dL Plt Count 329 (150-450) 10^3/uL Neut % (Auto) 80.3 H (42.2-75.2) % Lymph % (Auto) 9.5 L (20.5-50.1) % Roberts % (Auto) 9.7 H (2-8) % Eos % (Auto) 0.3 L (1.0-3.0) % Baso % (Auto) 0.2 (0.0-1.0) % Sodium 140 (135-145) mmol/L Potassium 4.7 (3.6-5.0) mmol/L Chloride 105 (101-111) mmol/L Carbon Dioxide 25.0 (21.0-31.0) mmol/L Anion Gap 14.7 BUN 11 (7-18) mg/dL Creatinine 0.7 (0.6-1.3) mg/dL Est Cr Clr Drug Dosing 56.00 mL/min Estimated GFR (MDRD) > 60 BUN/Creatinine Ratio 15.71 Glucose 120 H (74-105) mg/dL Calcium 9.3 (8.4-10.2) mg/dl Total Bilirubin 0.3 (0.2-1.0) mg/dL AST 17 (10-42) IU/L ALT 22 (10-60) IU/L Alkaline Phosphatase 52 (42-121) IU/L Total Protein 7.6 (6.7-8.2) g/dl Albumin 3.7 (3.2-5.5) g/dl Globulin 3.9 Albumin/Globulin Ratio 0.95 Amylase 53 (28-100) U/L - Radiology Interpretation Free Text/Narrative:: CXR negative, no acute findings Abd flat and upright, no dilation, abundant stool - Re-Assessments/Exams Free Text/Narrative Re-Assessment/Exam: 09/20/16 01:47 Minmal results with SS enemas 500ml x2, few hard stool "balls" . Pain resolved. Departure - Departure Time of Disposition: 01:44 Disposition: Home, Self-Care 01 Condition: Good Clinical Impression: Constipation by delayed colonic transit - Discharge Information Instructions: Constipation, Adult, [id number] Forms: ED Department Discharge Additional Instructions: miralax one capful daily in 8 ounces of water daily for constipation prune juice follow up clinic next week - My Orders Last 24 Hours: My Active Orders 09/20/16 00:14 Enema [RC] ASDIRECTED - Assessment/Plan Last 24 Hours: My Active Orders 09/20/16 00:14 Enema [RC] ASDIRECTED
== END 2016-09-20 02:02 | disposition home or self-care (01) ==
LOC: DL.ED 22:36
DX: K59.01 Slow transit constipation (principal); H54.7 Unspecified visual loss; I48.91 Unspecified atrial fibrillation; I25.10 Atherosclerotic heart disease of native coronary artery without angina pectoris; E78.00 Pure hypercholesterolemia, unspecified; K21.9 Gastro-esophageal reflux disease without esophagitis; Z98.890 Other specified postprocedural states; Z95.5 Presence of coronary angioplasty implant and graft; Z90.49 Acquired absence of other specified parts of digestive tract; Z88.8 Allergy status to other drugs, medicaments and biological substances; Z88.5 Allergy status to narcotic agent; Z79.899 Other long term (current) drug therapy; Z90.710 Acquired absence of both cervix and uterus; Z79.82 Long term (current) use of aspirin
CPT/HCPCS: 36415; 71010; 74020; 80053; 82150; 85025; 99284

== ENCOUNTER 2016-10-04 21:23 | Inpatient (IN) | payer MEDICARE, BC ==
[2016-10-04] MEDS ORDERED: Diltiazem 25 MG/5 ML SDV IVPUSH ONE (21:44)
--- NOTE | 2016-10-04 22:10 | EDM.PDOC ---
ED HPI GENERAL MEDICAL PROBLEM - General Chief Complaint: General Stated Complaint: PAINS ON SIDE AND ALL THE WAY DOWN, [id number] Time Seen by Provider: 10/04/16 21:40 Source of Information: Reports: Patient History Limitations: Reports: No Limitations - History of Present Illness INITIAL COMMENTS - FREE TEXT/NARRATIVE: ED with c/o right sided chest pain starting to creep into throat. Similar to sensation she get when "heart to fast". Hx A-fib. Has been seen frequently for similar c/o. Started while in bed trying to go to sleep. Notes not feeling well since July so activity decreased, Has felt shakey all summer. 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 Onset: Today Right Thoracic Pain Score (Numeric/FACES): 8 - Related Data Allergies Allergy/AdvReac Type Severity Reaction Status Date / Time trazodone Allergy Mild Insomnia Verified 10/04/16 23:53 atorvastatin calcium Allergy Unknown Muscle Verified 10/04/16 23:53 [From Lipitor] Aches buprenorphine Allergy Unknown UNKNOWN Verified 10/04/16 23:53 diazepam [From Valium] Allergy Unknown UNKNOWN Verified 10/04/16 23:53 ezetimibe [From Vytorin] Allergy Unknown Muscle Verified 10/04/16 23:53 Aches lorazepam [From Ativan] Allergy Unknown Depression Verified 10/04/16 23:53 pentazocine lactate Allergy Unknown UNKNOWN Verified 10/04/16 23:53 [From Talwin] propoxyphene Allergy Unknown UNKNOWN Verified 10/04/16 23:53 rosuvastatin calcium Allergy Unknown Muscle Verified 10/04/16 23:53 [From Crestor] Aches simvastatin [From Vytorin] Allergy Unknown Muscle Verified 10/04/16 23:53 Aches codeine Allergy unknown Verified 10/04/16 23:53 morphine Allergy Itching Verified 10/04/16 23:53 nefazodone [Nefazodone] Allergy Insomnia Verified 10/04/16 23:53 oxycodone [Oxycodone] Allergy confusion/s Verified 10/04/16 23:53 edation Home Meds: Home Meds Aspirin [Halfprin] 81 mg PO DAILY 10/31/13 [History] Nitroglycerin [Nitrostat] 0.4 mg PO ASDIRECTED PRN 10/31/13 [History] Acetaminophen [Acetaminophen Extra Strength] 500 mg PO Q6H PRN 12/14/14 [History ] Clopidogrel Bisulfate [Clopidogrel] 75 mg PO DAILY 09/10/15 [History] Pantoprazole Sodium [Protonix] 40 mg PO ACBREAKFAST 09/10/15 [History] Digoxin 125 mcg PO WITHLUNCH 08/01/16 [History] Cyanocobalamin (Vitamin B-12) [B-12] 1,000 mcg PO DAILY 09/12/16 [History] diphenhydrAMINE HCl [Z-Sleep] 30 ml PO BEDTIME 09/12/16 [History] Potassium Chloride [Potassium Chloride] 20 mg PO BID 10/04/16 [History] Past Medical History HEENT History: Reports: Cataract, Impaired Vision Other HEENT History: wears corrective lenses, occipital neuralgia Cardiovascular History: Reports: Afib, CAD, High Cholesterol Respiratory History: Reports: Bronchitis, Recurrent Other Respiratory History: Recurrent aspiration bronchitis/pneumonia Gastrointestinal History: Reports: Chronic Constipation, GERD, Hemorrhoids Other Gastrointestinal History: Kendrick's esophagus, duodenitis Genitourinary History: Reports: Renal Calculus TRANSIT MAN History: Reports: Other (See Below) Other OB/BYN History: 5 NVD and 1 miscarriage Musculoskeletal History: Reports: Arthritis Other Musculoskeletal History: Forestier's disease, DDD, Fall Neurological History: Reports: Vertigo Psychiatric History: Reports: Anxiety, Depression Other Psychiatric History: Insomnia, mild memory impairment Endocrine/Metabolic History: Reports: Osteopenia Hematologic History: Reports: Anticoagulation Therapy, Other (See Below) Other Hematologic History: on Plavix for atrial fib Immunologic History: Reports: None Oncologic (Cancer) History: Reports: None Dermatologic History: Reports: None - Infectious Disease History Infectious Disease History: Reports: Chicken Pox, Measles - Past Surgical History HEENT Surgical History: Reports: Adenoidectomy, Tonsillectomy Cardiovascular Surgical History: Reports: Coronary Artery Stent, Varicose Other Cardiovascular Surgeries/Procedures: 2 stents Respiratory Surgical History: Reports: None GI Surgical History: Reports: Appendectomy, Cholecystectomy, Colonoscopy, Colostomy, EGD Other GI Surgeries/Procedures: Tubular Adenoma of colon Female Surgical History: Reports: Hysterectomy, Kidney stone extraction Neurological Surgical History: Reports: None Musculoskeletal Surgical History: Reports: None Social & Family History - Family History Family Medical History: Noncontributory - Tobacco Use Smoking Status *Q: Unknown Ever Smoked Second Hand Smoke Exposure: No - Caffeine Use Caffeine Use: Reports: None - Alcohol Use Days Per Week of Alcohol Use: 0 - Recreational Drug Use Recreational Drug Use: No ED ROS GENERAL - Review of Systems Review Of Systems: See Below Constitutional: Reports: Weakness HEENT: Reports: Glasses Respiratory: Reports: Shortness of Breath (chronic). Denies: Cough Cardiovascular: Reports: Chest Pain (right lower ), Dyspnea on Exertion, Lightheadedness (chronic), Palpitations. Denies: Blood Pressure Problem Endocrine: Reports: No Symptoms GI/Abdominal: Reports: No Symptoms : Reports: No Symptoms Musculoskeletal: Reports: No Symptoms Skin: Reports: No Symptoms ED EXAM, GENERAL - Physical Exam Exam: See Below Exam Limited By: No Limitations General Appearance: Alert, Anxious, Mild Distress Eye Exam: Bilateral Eye: EOMI, PERRL Ears: Normal External Exam Nose: Normal Inspection Throat/Mouth: Normal Inspection, Normal Lips Head: Atraumatic, Normocephalic Neck: Normal Inspection, Non-Tender, Full Range of Motion Respiratory/Chest: No Respiratory Distress, Lungs Clear, Normal Breath Sounds Cardiovascular: Normal Peripheral Pulses, Tachycardia, Other (rapid a fib) Peripheral Pulses: 1+: Dorsalis Pedis (R) GI/Abdominal: Normal Bowel Sounds, Soft Extremities: Normal Inspection, Normal Range of Motion Neurological: Alert, Oriented, Normal Cognition, Normal Gait Psychiatric: Normal Affect, Normal Mood Skin Exam: Warm, Dry, Intact, Normal Color Course - Vital Signs Last Recorded V/S: Last Vital Signs Temp 98 F 10/08/16 20:00 Pulse 66 10/08/16 20:00 Resp 20 10/08/16 20:00 BP 137/51 L 10/08/16 20:00 Pulse Ox 97 10/08/16 20:00 - Orders/Labs/Meds Orders: Medication Orders Acetaminophen (Tylenol) 650 mg PO Q4H PRN PRN Reason: Pain (Mild 1-3)/fever Last Admin: 10/08/16 20:38 Dose: 650 mg Admin: 10/06/16 08:49 Dose: 650 mg Admin: 10/05/16 01:35 Dose: 650 mg Cyanocobalamin (Vitamin B12) 1,000 mcg PO DAILY DEBBIE Last Admin: 10/08/16 08:15 Dose: 1,000 mcg Admin: 10/07/16 08:38 Dose: 1,000 mcg Admin: 10/06/16 08:40 Dose: 1,000 mcg Admin: 10/05/16 08:28 Dose: 1,000 mcg Digoxin (Lanoxin) 125 mcg PO DAILY@0800 [facility] Last Admin: 10/08/16 08:13 Dose: 125 mcg Admin: 10/07/16 08:40 Dose: 125 mcg Admin: 10/06/16 08:41 Dose: 125 mcg Admin: 10/05/16 08:27 Dose: 125 mcg Diphenhydramine HCl (Benadryl) 25 mg PO BEDTIME PRN PRN Reason: Sleep Last Admin: 10/08/16 20:39 Dose: 25 mg Docusate Sodium (Colace) 100 mg PO BID PRN PRN Reason: Constipation Last Admin: 10/08/16 08:24 Dose: 100 mg Admin: 10/07/16 18:11 Dose: 100 mg Fentanyl (Sublimaze) 25 mcg IVPUSH Q4H PRN PRN Reason: Pain Last Admin: 10/07/16 21:17 Dose: 25 mcg Admin: 10/07/16 05:43 Dose: 25 mcg Admin: 10/06/16 22:52 Dose: 25 mcg Magnesium Hydroxide (Milk Of Magnesia) 30 ml PO DAILY PRN PRN Reason: Constipation Last Admin: 10/08/16 20:36 Dose: 30 ml Metoprolol Succinate (Toprol Xl) 50 mg PO DAILY [facility] Last Admin: 10/08/16 08:14 Dose: 50 mg Admin: 10/07/16 08:38 Dose: 50 mg Admin: 10/06/16 08:41 Dose: 50 mg Admin: 10/05/16 08:27 Dose: 50 mg Cataractive 3 Own (Med) 0 each EYELF QID [facility] Last Admin: 10/08/16 20:41 Dose: 1 each Admin: 10/08/16 17:01 Dose: 1 each Admin: 10/08/16 13:09 Dose: 1 each Admin: 10/08/16 10:03 Dose: 1 each Ondansetron HCl (Zofran) 4 mg IVPUSH Q6H PRN PRN Reason: Nausea/Vomiting Pantoprazole Sodium (Protonix) 40 mg PO BID [facility] Last Admin: 10/08/16 20:38 Dose: 40 mg Polyethylene Glycol (Miralax) 17 gm PO BEDTIME PRN PRN Reason: Constipation Potassium Chloride (Klor-Con 10) 20 meq PO BID [facility] Last Admin: 10/08/16 20:37 Dose: 20 meq Admin: 10/08/16 08:14 Dose: 20 meq Admin: 10/07/16 20:55 Dose: 20 meq Admin: 10/07/16 08:40 Dose: 20 meq Admin: 10/06/16 20:47 Dose: 20 meq Admin: 10/06/16 08:41 Dose: 20 meq Admin: 10/05/16 21:31 Dose: 20 meq Admin: 10/05/16 08:28 Dose: 20 meq Sodium Chloride (Saline Flush) 10 ml FLUSH ASDIRECTED PRN PRN Reason: Keep Vein Open Last Admin: 10/08/16 10:00 Dose: 10 ml Admin: 10/08/16 08:20 Dose: 10 ml Admin: 10/08/16 08:11 Dose: 10 ml Admin: 10/05/16 14:32 Dose: 10 ml Warfarin Sodium (Pharmacy To Dose - Warfarin) 1 dose .XX ASDIRECTED [facility] Labs: Laboratory Tests 10/04/16 10/04/16 10/04/16 Range/Units 21:43 21:43 21:43 WBC 7.9 (5.0-10.0) 10^3/uL RBC 4.44 (4.2-5.4) 10^6/uL Hgb 13.7 (12.0-16.0) g/dL Hct 42.6 (37.0-47.0) % MCV 95.9 (80-100) fL MCH 30.9 (27.0-34.0) pg MCHC 32.2 L (33.0-35.0) g/dL Plt Count 218 (150-450) 10^3/uL Neut % (Auto) 74.9 (42.2-75.2) % Lymph % (Auto) 15.0 L (20.5-50.1) % Johnson % (Auto) 9.2 H (2-8) % Eos % (Auto) 0.6 L (1.0-3.0) % Baso % (Auto) 0.3 (0.0-1.0) % PT 10.2 (9.0-12.0) SEC INR 1.0 (0.9-1.2) APTT (22.0-34.0) SEC D-Dimer, Quantitative (0-400) ng/mL Sodium 141 (135-145) mmol/L Potassium 4.1 (3.6-5.0) mmol/L Chloride 108 (101-111) mmol/L Carbon Dioxide 23.0 (21.0-31.0) mmol/L Anion Gap 14.1 BUN 11 (7-18) mg/dL Creatinine 0.8 (0.6-1.3) mg/dL Est Cr Clr Drug Dosing 49.00 mL/min Estimated GFR (MDRD) > 60 BUN/Creatinine Ratio 13.75 Glucose 122 H (74-105) mg/dL Calcium 9.3 (8.4-10.2) mg/dl Total Bilirubin 0.8 (0.2-1.0) mg/dL AST 19 (10-42) IU/L ALT 16 (10-60) IU/L Alkaline Phosphatase 41 L (42-121) IU/L CK-MB (CK-2) (0.4-4.7) ng/mL Troponin I 0.02 (0.00-0.02) ng/ml B-Natriuretic Peptide 242 H (0-100) pg/ml Total Protein 7.6 (6.7-8.2) g/dl Albumin 4.0 (3.2-5.5) g/dl Globulin 3.6 Albumin/Globulin Ratio 1.11 Amylase 50 (28-100) U/L Lipase 40 (22-51) U/L Digoxin (0-2.5) ng/ml 10/04/16 10/04/16 10/05/16 Range/Units 21:43 21:43 06:40 WBC 7.1 (5.0-10.0) 10^3/uL RBC 3.86 L (4.2-5.4) 10^6/uL Hgb 11.9 L (12.0-16.0) g/dL Hct 37.4 (37.0-47.0) % MCV 96.9 (80-100) fL MCH 30.8 (27.0-34.0) pg MCHC 31.8 L (33.0-35.0) g/dL Plt Count 189 (150-450) 10^3/uL Neut % (Auto) 74.6 (42.2-75.2) % Lymph % (Auto) 14.2 L (20.5-50.1) % Johnson % (Auto) 10.1 H (2-8) % Eos % (Auto) 0.8 L (1.0-3.0) % Baso % (Auto) 0.3 (0.0-1.0) % PT (9.0-12.0) SEC INR (0.9-1.2) APTT (22.0-34.0) SEC D-Dimer, Quantitative (0-400) ng/mL Sodium (135-145) mmol/L Potassium (3.6-5.0) mmol/L Chloride (101-111) mmol/L Carbon Dioxide (21.0-31.0) mmol/L Anion Gap BUN (7-18) mg/dL Creatinine (0.6-1.3) mg/dL Est Cr Clr Drug Dosing mL/min Estimated GFR (MDRD) BUN/Creatinine Ratio Glucose (74-105) mg/dL Calcium (8.4-10.2) mg/dl Total Bilirubin (0.2-1.0) mg/dL AST (10-42) IU/L ALT (10-60) IU/L Alkaline Phosphatase (42-121) IU/L CK-MB (CK-2) 2.60 (0.4-4.7) ng/mL Troponin I (0.00-0.02) ng/ml B-Natriuretic Peptide (0-100) pg/ml Total Protein (6.7-8.2) g/dl Albumin (3.2-5.5) g/dl Globulin Albumin/Globulin Ratio Amylase (28-100) U/L Lipase (22-51) U/L Digoxin 0.7 (0-2.5) ng/ml 10/05/16 10/05/16 10/05/16 Range/Units 06:40 06:40 13:30 WBC (5.0-10.0) 10^3/uL RBC (4.2-5.4) 10^6/uL Hgb (12.0-16.0) g/dL Hct (37.0-47.0) % MCV (80-100) fL MCH (27.0-34.0) pg MCHC (33.0-35.0) g/dL Plt Count (150-450) 10^3/uL Neut % (Auto) (42.2-75.2) % Lymph % (Auto) (20.5-50.1) % Johnson % (Auto) (2-8) % Eos % (Auto) (1.0-3.0) % Baso % (Auto) (0.0-1.0) % PT (9.0-12.0) SEC INR (0.9-1.2) APTT (22.0-34.0) SEC D-Dimer, Quantitative 3360 H (0-400) ng/mL Sodium 141 (135-145) mmol/L Potassium 3.8 (3.6-5.0) mmol/L Chloride 111 (101-111) mmol/L Carbon Dioxide 21.0 (21.0-31.0) mmol/L Anion Gap 12.8 BUN 10 (7-18) mg/dL Creatinine 0.7 (0.6-1.3) mg/dL Est Cr Clr Drug Dosing 56.00 mL/min Estimated GFR (MDRD) > 60 BUN/Creatinine Ratio Glucose 102 (74-105) mg/dL Calcium 8.8 (8.4-10.2) mg/dl Total Bilirubin (0.2-1.0) mg/dL AST (10-42) IU/L ALT (10-60) IU/L Alkaline Phosphatase (42-121) IU/L CK-MB (CK-2) (0.4-4.7) ng/mL Troponin I 0.05 H* 0.05 H* (0.00-0.02) ng/ml B-Natriuretic Peptide (0-100) pg/ml Total Protein (6.7-8.2) g/dl Albumin (3.2-5.5) g/dl Globulin Albumin/Globulin Ratio Amylase (28-100) U/L Lipase (22-51) U/L Digoxin (0-2.5) ng/ml 10/05/16 10/05/16 Range/Units 13:30 13:30 WBC (5.0-10.0) 10^3/uL RBC (4.2-5.4) 10^6/uL Hgb (12.0-16.0) g/dL Hct (37.0-47.0) % MCV (80-100) fL MCH (27.0-34.0) pg MCHC (33.0-35.0) g/dL Plt Count (150-450) 10^3/uL Neut % (Auto) (42.2-75.2) % Lymph % (Auto) (20.5-50.1) % Johnson % (Auto) (2-8) % Eos % (Auto) (1.0-3.0) % Baso % (Auto) (0.0-1.0) % PT 10.5 (9.0-12.0) SEC INR 1.0 (0.9-1.2) APTT 24.8 (22.0-34.0) SEC D-Dimer, Quantitative (0-400) ng/mL Sodium (135-145) mmol/L Potassium (3.6-5.0) mmol/L Chloride (101-111) mmol/L Carbon Dioxide (21.0-31.0) mmol/L Anion Gap BUN (7-18) mg/dL Creatinine (0.6-1.3) mg/dL Est Cr Clr Drug Dosing mL/min Estimated GFR (MDRD) BUN/Creatinine Ratio Glucose (74-105) mg/dL Calcium (8.4-10.2) mg/dl Total Bilirubin (0.2-1.0) mg/dL AST (10-42) IU/L ALT (10-60) IU/L Alkaline Phosphatase (42-121) IU/L CK-MB (CK-2) (0.4-4.7) ng/mL Troponin I (0.00-0.02) ng/ml B-Natriuretic Peptide (0-100) pg/ml Total Protein (6.7-8.2) g/dl Albumin (3.2-5.5) g/dl Globulin Albumin/Globulin Ratio Amylase (28-100) U/L Lipase (22-51) U/L Digoxin (0-2.5) ng/ml Meds: Medications Generic Name Dose Route Start Last Admin Trade Name Freq PRN Reason Stop Dose Admin Acetaminophen 650 mg 10/04/16 23:44 10/08/16 20:38 Tylenol PO 650 mg Q4H PRN Administration Pain (Mild 1-3)/fever Cyanocobalamin 1,000 mcg 10/05/16 09:00 10/08/16 08:15 Vitamin B12 PO 1,000 mcg DAILY DEBBIE Administration Digoxin 125 mcg 10/05/16 08:00 10/08/16 08:13 Lanoxin PO 125 mcg DAILY@0800 DEBBIE Administration Diphenhydramine HCl 25 mg 10/08/16 20:22 10/08/16 20:39 Benadryl PO 25 mg BEDTIME PRN Administration Sleep Docusate Sodium 100 mg 10/04/16 23:44 10/08/16 08:24 Colace PO 100 mg BID PRN Administration Constipation Fentanyl 25 mcg 10/05/16 21:55 10/07/16 21:17 Sublimaze IVPUSH 25 mcg Q4H PRN Administration Pain Magnesium Hydroxide 30 ml 10/08/16 14:51 10/08/16 20:36 Milk Of Magnesia PO 30 ml DAILY PRN Administration Constipation Metoprolol Succinate 50 mg 10/05/16 09:00 10/08/16 08:14 Toprol Xl PO 50 mg DAILY DEBBIE Administration Cataractive 3 Own 0 each 10/08/16 09:46 10/08/16 20:41 Med EYELF 1 each QID DEBBIE Administration Ondansetron HCl 4 mg 10/04/16 23:44 Zofran IVPUSH Q6H PRN Nausea/Vomiting Pantoprazole Sodium 40 mg 10/08/16 21:00 10/08/16 20:38 Protonix PO 40 mg BID DEBBIE Administration Polyethylene Glycol 17 gm 10/08/16 10:17 Miralax PO BEDTIME PRN Constipation Potassium Chloride 20 meq 10/05/16 09:00 10/08/16 20:37 Klor-Con 10 PO 20 meq BID DEBBIE Administration Sodium Chloride 10 ml 10/04/16 23:44 10/08/16 10:00 Saline Flush FLUSH 10 ml ASDIRECTED PRN Administration Keep Vein Open Warfarin Sodium 1 dose 10/05/16 21:00 Pharmacy To Dose - Warfarin .XX ASDIRECTED DEBBIE Discontinued Medications Generic Name Dose Route Start Last Admin Trade Name Freq PRN Reason Stop Dose Admin Aspirin 81 mg 10/05/16 09:00 10/05/16 08:28 Halfprin PO 81 mg DAILY DEBBIE Administration Clopidogrel Bisulfate 75 mg 10/05/16 09:00 10/05/16 08:27 Plavix PO 75 mg DAILY DEBBIE Administration Diltiazem HCl 20 mg 10/04/16 21:44 10/04/16 21:52 Diltiazem IVPUSH 10/04/16 21:45 20 mg ONETIME ONE Administration Diltiazem HCl 120 mg 10/05/16 09:00 Cardizem Cd PO DAILY DEBBIE Diphenhydramine HCl 25 mg 10/05/16 00:27 10/05/16 00:40 Benadryl PO 10/05/16 00:28 25 mg ONETIME ONE Administration Fentanyl 25 mcg 10/05/16 01:55 10/05/16 21:58 Sublimaze IVPUSH 25 mcg Q2H PRN Administration Pain (severe 7-10) Heparin Sodium (Porcine) 5,000 units 10/05/16 06:00 10/05/16 06:35 Heparin Sodium SUBCUT 5,000 units Q8HR DEBBIE Administration Heparin Sodium (Porcine) 5,000 units 10/05/16 13:22 10/05/16 14:45 Heparin Sodium IVPUSH 10/05/16 13:23 5,000 units ONETIME ONE Administration Diltiazem HCl 100 mg/ Sodium 100 mls @ 5 mls/hr 10/04/16 22:30 10/04/16 22:53 Chloride IV 10/05/16 18:29 5 mg/hr TITRATE ONE 5 mls/hr Protocol Administration 5 MG/HR Diltiazem HCl 100 mg/ Sodium 100 mls @ 5 mls/hr 10/04/16 23:45 Chloride IV TITRATE [facility] Protocol 5 MG/HR Heparin Sodium/Dextrose 25,000 units in 500 mls @ 17.527 mls/hr 10/05/16 13: 15 10/08/16 08:20 Heparin 25,000 Units In D5w 500 Ml IV 13.97 units/kg/hr TITRATE DEBBIE 17.5 mls/hr Protocol Titration 14 UNITS/KG/HR Sodium Chloride 1,000 mls @ 75 mls/hr 10/05/16 16:30 10/05/16 16:49 Normal Saline IV 10/06/16 00:31 75 mls/hr ASDIRECTED DEBBIE Administration Iopamidol 100 ml 10/05/16 11:13 10/05/16 11:45 Isovue-370 (76%) IVPUSH 10/05/16 11:14 58 ml ONETIME ONE Administration Non-Formulary Medication 30 ml 10/04/16 23:55 10/05/16 01:21 Diphenhydramine Hcl [Z-Sleep] PO Not Given BEDTIME DEBBIE Non-Formulary Medication 25 mg 10/04/16 23:59 Diphenhydramine Hcl [Z-Sleep] PO BEDTIME DEBBIE Warfarin, No Dose 1 each 10/08/16 14:00 Ordered PO 10/08/16 14:01 ONETIME ONE WarfarinNo Dose 0 each 10/08/16 14:00 10/08/16 19:17 Ordered PO 10/08/16 14:01 Not Given ONETIME ONE Pantoprazole Sodium 40 mg 10/05/16 06:00 10/05/16 06:35 Protonix PO 40 mg ACBREAKFAST DEBBIE Administration Pantoprazole Sodium 40 mg 10/05/16 14:15 10/08/16 08:08 Protonix Iv IVPUSH 40 mg Q12HR DEBBIE Administration Warfarin Sodium 5 mg 10/05/16 20:46 10/05/16 21:18 Coumadin PO 10/05/16 20:47 5 mg ONETIME ONE Administration Warfarin Sodium 5 mg 10/06/16 16:15 10/06/16 16:27 Coumadin PO 10/06/16 16:16 5 mg ONETIME ONE Administration Warfarin Sodium 7.5 mg 10/07/16 14:00 10/07/16 14:07 Coumadin PO 10/07/16 14:01 7.5 mg ONETIME ONE Administration Warfarin Sodium 2.5 mg 10/07/16 14:15 10/07/16 14:53 Coumadin PO 10/07/16 14:16 Not Given ONETIME ONE Warfarin Sodium 5 mg 10/07/16 14:15 10/07/16 14:53 Coumadin PO 10/07/16 14:16 Not Given ONETIME ONE - Re-Assessments/Exams Free Text/Narrative Re-Assessment/Exam: 10/04/16 23:23 Cardizem IVP 20mg with good response HR 150-170's decrease to 90. Stable until up to BR and increased to 150. Initiated drip and maintaining in 80's. TC to Dr. Calle. Agree to admit for further management. Departure - Departure Time of Disposition: 23:25 Disposition: Admitted As Inpatient 68 Condition: Fair Clinical Impression: Rapid atrial fibrillation, afib - Discharge Information
[2016-10-04 22:13] LABS: CHLORIDE,CL 108 mmol/L (101-111); SODIUM,NA 141 mmol/L (135-145)
[2016-10-04] MEDS ORDERED: Diltiazem 100 MG in Sodium Chloride 0.9% 100 ML IV ONE (22:30)
[2016-10-04] MEDS ORDERED: Ondansetron 4 MG/2 ML SDV IVPUSH PRN (23:44)
[2016-10-04] MEDS ORDERED: Diltiazem 100 MG in Sodium Chloride 0.9% 100 ML IV SCH (23:45)
[2016-10-04] MEDS ORDERED: DIPHENHYDRAMINE HCL PO SCH (23:55)
--- NOTE | 2016-10-04 23:58 | PCM.HP ---
H&P History of Present Illness - General Date of Service: 10/04/16 Admit Problem/Dx: Admission Diagnosis/Problem Admission Diagnosis/Problem Afib, Atrial fibrillation Source of Information: Patient - History of Present Illness Initial Comments - Free Text/Narative: The patient is an 86-year-old lady with a history of paroxysmal atrial fibrillation, off anticoagulation due to prior history of GI bleed, chronic dizziness. The patient presented with a right-sided chest pain that started in the evening while at rest. There was associated shortness of breath. In the emergency room she was noted to have rapid atrial fibrillation. She was given Cardizem IV bolus of with that the heart rate decreased but then with minimal activity heart rate went back to 150s. She was started on Cardizem drip. Her chest pain resolved. She has no more shortness of breath. Right Thoracic Pain Score (Numeric/FACES): 8 - Related Data Allergies/Adverse Reactions: Allergies Allergy/AdvReac Type Severity Reaction Status Date / Time trazodone Allergy Mild Insomnia Verified 10/04/16 23:53 atorvastatin calcium Allergy Unknown Muscle Verified 10/04/16 23:53 [From Lipitor] Aches buprenorphine Allergy Unknown UNKNOWN Verified 10/04/16 23:53 diazepam [From Valium] Allergy Unknown UNKNOWN Verified 10/04/16 23:53 ezetimibe [From Vytorin] Allergy Unknown Muscle Verified 10/04/16 23:53 Aches lorazepam [From Ativan] Allergy Unknown Depression Verified 10/04/16 23:53 pentazocine lactate Allergy Unknown UNKNOWN Verified 10/04/16 23:53 [From Talwin] propoxyphene Allergy Unknown UNKNOWN Verified 10/04/16 23:53 rosuvastatin calcium Allergy Unknown Muscle Verified 10/04/16 23:53 [From Crestor] Aches simvastatin [From Vytorin] Allergy Unknown Muscle Verified 10/04/16 23:53 Aches codeine Allergy unknown Verified 10/04/16 23:53 morphine Allergy Itching Verified 10/04/16 23:53 nefazodone [Nefazodone] Allergy Insomnia Verified 10/04/16 23:53 oxycodone [Oxycodone] Allergy confusion/s Verified 10/04/16 23:53 edation Home Medications: Home Meds Aspirin [Halfprin] 81 mg PO DAILY 10/31/13 [History] Nitroglycerin [Nitrostat] 0.4 mg PO ASDIRECTED PRN 10/31/13 [History] Acetaminophen [Acetaminophen Extra Strength] 500 mg PO Q6H PRN 12/14/14 [History ] Clopidogrel Bisulfate [Clopidogrel] 75 mg PO DAILY 09/10/15 [History] Pantoprazole Sodium [Protonix] 40 mg PO ACBREAKFAST 09/10/15 [History] Digoxin 125 mcg PO WITHLUNCH 08/01/16 [History] Cyanocobalamin (Vitamin B-12) [B-12] 1,000 mcg PO DAILY 09/12/16 [History] diphenhydrAMINE HCl [Z-Sleep] 30 ml PO BEDTIME 09/12/16 [History] Potassium Chloride [Potassium Chloride] 20 mg PO BID 10/04/16 [History] Past Medical History HEENT History: Reports: Cataract, Impaired Vision Other HEENT History: wears corrective lenses, occipital neuralgia Cardiovascular History: Reports: Afib, CAD, High Cholesterol Respiratory History: Reports: Bronchitis, Recurrent Other Respiratory History: Recurrent aspiration bronchitis/pneumonia Gastrointestinal History: Reports: Chronic Constipation, GERD, Hemorrhoids Other Gastrointestinal History: Kendrick's esophagus, duodenitis Genitourinary History: Reports: Renal Calculus 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) Other OB/BYN History: 5 NVD and 1 miscarriage Musculoskeletal History: Reports: Arthritis Other Musculoskeletal History: Forestier's disease, DDD, Fall Neurological History: Reports: Vertigo Psychiatric History: Reports: Anxiety, Depression Other Psychiatric History: Insomnia, mild memory impairment Endocrine/Metabolic History: Reports: Osteopenia Hematologic History: Reports: Anticoagulation Therapy, Other (See Below) Other Hematologic History: on Plavix for atrial fib Immunologic History: Reports: None Oncologic (Cancer) History: Reports: None Dermatologic History: Reports: None - Infectious Disease History Infectious Disease History: Reports: Chicken Pox, Measles - Past Surgical History HEENT Surgical History: Reports: Adenoidectomy, Tonsillectomy Cardiovascular Surgical History: Reports: Coronary Artery Stent, Varicose Other Cardiovascular Surgeries/Procedures: 2 stents Respiratory Surgical History: Reports: None GI Surgical History: Reports: Appendectomy, Cholecystectomy, Colonoscopy, Colostomy, EGD Other GI Surgeries/Procedures: Tubular Adenoma of colon Female Surgical History: Reports: Hysterectomy, Kidney stone extraction Neurological Surgical History: Reports: None Musculoskeletal Surgical History: Reports: None Social & Family History - Family History Family Medical History: Noncontributory - Tobacco Use Smoking Status *Q: Unknown Ever Smoked Second Hand Smoke Exposure: No - Caffeine Use Caffeine Use: Reports: None - Alcohol Use Days Per Week of Alcohol Use: 0 - Recreational Drug Use Recreational Drug Use: No H&P Review of Systems - Review of Systems: Review Of Systems: See Below General: Denies: Fever Pulmonary: Reports: Shortness of Breath Cardiovascular: Reports: Chest Pain, Palpitations Gastrointestinal: Denies: Abdominal Pain Genitourinary: Denies: Dysuria Exam - Exam Exam: See Below - Vital Signs Vital Signs: Last Vital Signs Temp 36.4 C 10/04/16 21:35 Pulse 82 10/04/16 22:53 Resp 20 10/04/16 21:35 BP 126/53 L 10/04/16 22:53 Pulse Ox 98 10/04/16 21:35 Weight: 62.596 kg - Exam General: Alert, Oriented Neck: Supple Lungs: Clear to Auscultation, Normal Respiratory Effort Cardiovascular: Regular Rate, Regular Rhythm Extremities: No Pedal Edema Skin: Warm, Dry Neuro Extensive - Mental Status: Alert, Oriented x3, Normal Mood/Affect - Patient Data Result Diagrams: 10/04/16 21:43 10/04/16 21:43 EKG INTERPRETATION EKG Date: 10/04/16 Rhythm: A-Fib (Rapid ventricular rate) *Q Meaningful Use (ADM) - VTE *Q VTE Criteria *Q: - Stroke *Q Stroke Criteria *Q: - AMI *Q AMI Criteria *Q: - Problem List (1) Rapid atrial fibrillation, afib SNOMED Code(s): 078477365 ICD Code: I48.91 - UNSPECIFIED ATRIAL FIBRILLATION Status: Acute Current Visit: Yes Problem List Initiated/Reviewed/Updated: Yes Orders Last 24hrs: Active Orders 24 hr Category Date Time Status Patient Status [ADT] Routine ADT 10/04/16 23:44 Ordered Antiembolic Devices [RC] PER UNIT ROUTINE Care 10/04/16 23:48 Ordered Oxygen Therapy [RC] PRN Care 10/04/16 23:44 Ordered Peripheral IV Care [RC] . DIRECTED Care 10/04/16 23:48 Ordered Up With Assistance [RC] ASDIRECTED Care 10/04/16 23:44 Ordered VTE/DVT Education [RC] PER UNIT ROUTINE Care 10/04/16 23:44 Ordered Vital Signs [RC] Q30M Care 10/04/16 23:44 Ordered Regular Diet [DIET] Diet 10/04/16 Breakfast Ordered BASIC METABOLIC PANEL,BMP [CHEM] AM Lab 10/05/16 05:15 Ordered CBC WITH AUTO DIFF [HEME] AM Lab 10/05/16 05:15 Ordered TROPONIN I [CHEM] AM Lab 10/05/16 05:11 Ordered Acetaminophen [Tylenol] Med 10/04/16 23:44 Ordered 650 mg PO Q4H PRN Aspirin [Halfprin] Med 10/05/16 09:00 Ordered 81 mg PO DAILY Clopidogrel [Plavix] Med 10/05/16 09:00 Ordered 75 mg PO DAILY Cyanocobalamin (Vitamin B-12) [B-12] Med 10/05/16 09:00 Ordered 1,000 mcg PO DAILY Digoxin [Lanoxin] Med 10/05/16 12:00 Ordered 125 mcg PO WITHLUNCH Diltiazem 100 MG in NS Adv @ 5 MG/HR(100ml) Med 10/04/16 23:45 Ordered Diltiazem [Cardizem] 100 mg Sodium Chloride 0.9% [Normal Saline] 100 ml IV TITRATE Diltiazem [Cardizem CD] Med 10/05/16 09:00 Ordered 120 mg PO DAILY Docusate Sodium [Colace] Med 10/04/16 23:44 Ordered 100 mg PO BID PRN Heparin Sodium Med 10/05/16 06:00 Ordered 5,000 units SUBCUT Q8HR Ondansetron [Zofran] Med 10/04/16 23:44 Ordered 4 mg IVPUSH Q6H PRN Pantoprazole Sodium [Protonix] Med 10/05/16 06:00 Ordered 40 mg PO ACBREAKFAST Potassium Chloride [Klor-Con] Med 10/05/16 09:00 Ordered 20 meq PO BID Sodium Chloride 0.9% [Saline Flush] Med 10/04/16 23:44 Ordered 10 ml FLUSH ASDIRECTED PRN diphenhydrAMINE HCl [Z-Sleep] Med 10/04/16 23:55 Ordered 30 ml PO BEDTIME Antiembolic Hose [OM.PC] Per Unit Routine Oth 10/04/16 23:45 Ordered Peripheral IV Insertion Adult [OM.PC] Routine Oth 10/04/16 23:44 Ordered Resuscitation Status Routine Resus Stat 10/04/16 23:44 Ordered Assessment/Plan Comment:: The patient is an 86-year-old lady with a history of paroxysmal atrial fibrillation she has been on digoxin and Cardizem and metoprolol in the past She has had chronic dizziness and other rate controlling agents were discontinued. She presented with rapid atrial fibrillation. Started on Cardizem drip and now appears to be in sinus rhythm. We will monitor the patient on telemetry. Continue Cardizem drip at low dose. Start oral metoprolol in the morning and likely after that stop the drip. Continue digoxin Repeat troponin in the morning Coronary artery disease Continue aspirin, Plavix Start metoprolol Anticoagulation for atrial fibrillation We will be with aspirin Has a history of GI bleed DVT prophylaxis with subcutaneous heparin
[2016-10-04] MEDS ORDERED: DIPHENHYDRAMINE HCL 25 MG PO SCH (23:59)
[2016-10-05] MEDS ORDERED: diphenhydrAMINE 25 MG Tab PO ONE (00:27)
[2016-10-05] MEDS: Acetaminophen 325 MG Tab PO PRN (01:35)
[2016-10-05] MEDS: fentaNYL 100 MCG/2 ML SDV IVPUSH PRN ×6 (02:14→21:58)
[2016-10-05] MEDS ORDERED: Pantoprazole 40 MG Tab.CR PO SCH (06:00)
[2016-10-05] MEDS ORDERED: Heparin Sodium 5,000 Units/ML Vial SUBCUT SCH (06:00)
[2016-10-05 07:10] LABS: CHLORIDE,CL 111 mmol/L (101-111); SODIUM,NA 141 mmol/L (135-145)
[2016-10-05] MEDS: Metoprolol Succinate 50 MG Tab.ER PO SCH (08:27)
[2016-10-05] MEDS: Digoxin 125 MCG Tab PO SCH (08:27)
[2016-10-05] MEDS: Potassium Chloride 10 MEQ Tab.ER PO SCH ×2 (08:28→21:31)
[2016-10-05] MEDS: Cyanocobalamin (Vitamin B12) 100 MCG Tab PO SCH (08:28)
[2016-10-05] MEDS ORDERED: Aspirin 81 MG Tab.EC PO SCH (09:00)
[2016-10-05] MEDS ORDERED: Diltiazem 120 MG Cap.CD PO SCH (09:00)
[2016-10-05] MEDS ORDERED: Clopidogrel 75 MG Tab PO SCH (09:00)
[2016-10-05] MEDS ORDERED: Iopamidol 755 Mg/ML 100 ML Bottle IVPUSH ONE (11:13)
--- NOTE | 2016-10-05 12:22 | CT ---
CLINICAL HISTORY: 86-year-old care home patient with inspiratory pain right chest, under the arm and abnormally elevated serum D dimer. Rule out out pulmonary embolism/infarct. SCAN TECHNIQUE: Volume acquisition of data from the chest (bony thorax, mediastinum and lung kate) obtained during the intravenous administration 58 cc nonionic Isovue 371 the patient was lying supi ne on the Siemens multislice CT scanner [place], [place] (4 cc/s via injector). All data archived in the PACS system for storage, reformatting axial/sagittal/coronal pl anes and study (lung/mediastinal windows). INTERPRETATION: Abnormal. Pulmonary artery vein thrombosis, mid tier vessels, on the right. Ipsilateral small dependent pleura l effusion on the right with underlying atelectasis posterior segment right lower lobe. Basilar atel ectasis posteriorly on the left. 1. Intraluminal filling defect (thrombus) mid tier pulmonary artery segments, proximally in the righ t lung. 2. Small ipsilateral dependent right pleural effusion with underlying lower lobe atelectasis. 3. Posterior segment atelectasis contralateral left lung base. 4. Normal cardiac silhouette. No signs of pericardial effusion, cephalization of vascular flow or al veolar edema. 5. Calcifications normal caliber thoracic aorta. No aneurysm or dissection. 6. No lung mass, hilar/mediastinal lymphadenopathy, or focal lobar pneumonia. No sign of primary or metastatic malignancy. 7. 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 No fracture or spondylolisthesis. 8. Benign-appearing cysts located respectively in the right lobe liver anterolaterally (2.[address]) and left lobe (2 cm). CONCLUSION: Right pulmonary artery thrombosis.
[2016-10-05] MEDS ORDERED: Heparin Sodium 5,000 Units/ML Vial IVPUSH ONE (13:22)
[2016-10-05] MEDS: Sodium Chloride 0.9% 10 ML Syringe FLUSH PRN (14:32)
[2016-10-05] MEDS: Pantoprazole 40 MG Vial IVPUSH SCH ×2 (14:48→21:31)
[2016-10-05] MEDS: Heparin Sodium/D5W 25,000 UNITS/500 ML BAG IV SCH (15:16)
[2016-10-05] MEDS ORDERED: Sodium Chloride 0.9% 1,000 ML IV SCH (16:30)
[2016-10-05] MEDS ORDERED: Warfarin 5 MG Tab PO ONE (20:46)
[2016-10-06] MEDS: Cyanocobalamin (Vitamin B12) 100 MCG Tab PO SCH (08:40)
[2016-10-06] MEDS: Metoprolol Succinate 50 MG Tab.ER PO SCH (08:41)
[2016-10-06] MEDS: Pantoprazole 40 MG Vial IVPUSH SCH ×2 (08:41→20:48)
[2016-10-06] MEDS: Digoxin 125 MCG Tab PO SCH (08:41)
[2016-10-06] MEDS: Potassium Chloride 10 MEQ Tab.ER PO SCH ×2 (08:41→20:47)
[2016-10-06] MEDS: Acetaminophen 325 MG Tab PO PRN (08:49)
[2016-10-06] MEDS ORDERED: Warfarin 5 MG Tab PO ONE (16:15)
--- NOTE | 2016-10-06 16:23 | US ---
Clinical history: 86-year-old female pulmonary artery thrombosis or PE. Rule out DVT. Interpretation: Negative exam. No sign of intraluminal echogenic thrombus and normal compressibility deep veins both groin, thigh, knee and lower extremities. Satisfactory augmentation venous waveforms identified respectively in th e peroneal and anterior tibial veins of the legs. No Gallardo's cysts. CONCLUSION: No current sonographic evidence deep vein thrombosis, either leg.
[2016-10-06] MEDS: Heparin Sodium/D5W 25,000 UNITS/500 ML BAG IV SCH (16:27)
[2016-10-06] MEDS: fentaNYL 100 MCG/2 ML SDV IVPUSH PRN (22:52)
[2016-10-07] MEDS: fentaNYL 100 MCG/2 ML SDV IVPUSH PRN ×2 (05:43→21:17)
--- NOTE | 2016-10-07 07:57 | PN ---
DATE: 10/06/2016 SUBJECTIVE: Ms. Field has been diagnosed with a right pulmonary artery thromboembolus. She presented in rapid atrial fibrillation, which was successfully treated, but she continued to complain of right-sided chest pain. We found that a D-dimer was elevated and a subsequent CT scan of the chest with IV contrast revealed a right pulmonary artery thrombosis. She was started on IV heparin and has since been started on warfarin and is tolerating the addition of the anticoagulants well. Review of additional lab work today included a CBC as well as ongoing PT/PTTs. White count remains normal. Hemoglobin and hematocrit are stable at 12 and 37.8. Platelets are also stable at 189,000. INR this morning is 1.0 and she continues on IV heparin with intermittent checks of her PTT. Additional imaging studies were obtained today. A venous Doppler was performed of the bilateral lower extremities and failed to show any evidence for a deep venous thrombosis in either leg. We also obtained an echocardiogram to rule out the possibility of an intracardiac thrombus and although the official report is pending, it does not appear that there is a thrombus at this time. Review of her clinical data shows that she is taking in adequate fluids. She is voiding and moving her bowels. She is tolerating her diet although appetite is only fair. Vital signs have remained stable. Heart rate has remained less than 100. She has been on cardiac telemetry and this has shown a normal sinus rhythm with a controlled ventricular rate. OBJECTIVE: General: She is lying comfortably in bed. Her son is present today. We reviewed all of the findings from the time of admission once again with them. She voices no new concerns or complaints. She does continue to have right lateral chest pain. Vital Signs: Blood pressure this morning was 145/54, pulse 69 and regular, respiratory rate 20 and unlabored, and oxygen saturation 98% on room air. She has remained afebrile. HEENT: Unremarkable. ENT was clear. No JVDs or bruits. Chest: Showed clear bilateral breath sounds, somewhat diminished on the right. Heart: Showed regular rate and rhythm. Abdomen: Soft and benign. Extremities: Showed no edema. Neurologic: She was intact. IMPRESSION AND PLAN: 1. Right pulmonary artery thrombosis. We will continue with full IV heparin anticoagulation. She has been started on warfarin and the INR is being closely followed. She has a history of previous anticoagulation with Xarelto, which resulted in a significant gastrointestinal bleed for which the source was never identified despite an extensive workup. She is understandably nervous about going back on anticoagulation, but we explained that we would at least have better control with the warfarin than the Xarelto and she has been willing to try this. We will keep a careful watch on her hemoglobin, hematocrit, as well as on her platelet count, all of which have remained stable since anticoagulation was started. 2. No obvious source has been identified for the thromboembolus. There were no deep vein thrombosis in lower legs identified and echocardiogram did not show an intracardiac thrombus. 3. We did have her CT scan of the chest reviewed by Interventional Radiology. They felt that the blood clot was relatively small and should be amenable to anticoagulants and time and did not feel it warranted a thrombectomy or thrombolysis. We also discussed the possibility of an IVC in the event that lower extremity clot was found, but none were found, so IVC will not be pursued either. 4. 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 Dr. Zhang will be here in [place] on Sunday and we will see that he is provided with all of her clinical data. 5. We will continue the current management. She is doing fairly well. Once she is therapeutic on her warfarin, we will discontinue the IV heparin and will start discharge planning. She is scheduled to have cataract surgery sometime next week and would like to proceed with the scheduled cataract removal as they have been causing her significant issues with vision and balance and have restricted her activities of daily living. We will contact Dr. Gentile to inform of the recent events. No other changes are made at this time. [facility] /[id number] ADAM
[2016-10-07] MEDS: Cyanocobalamin (Vitamin B12) 100 MCG Tab PO SCH (08:38)
[2016-10-07] MEDS: Metoprolol Succinate 50 MG Tab.ER PO SCH (08:38)
[2016-10-07] MEDS: Potassium Chloride 10 MEQ Tab.ER PO SCH ×2 (08:40→20:55)
[2016-10-07] MEDS: Digoxin 125 MCG Tab PO SCH (08:40)
[2016-10-07] MEDS: Pantoprazole 40 MG Vial IVPUSH SCH ×2 (08:41→20:55)
--- NOTE | 2016-10-07 10:31 | PCM.PN ---
- General Info Date of Service: 10/07/16 Admission Dx/Problem (Free Text): Admission Diagnosis/Problem Admission Diagnosis/Problem Pt was admitted with Atrial fibrillation and later she was found to have Right Pulmonary artery Thromboembolus Subjective Update: Pt is feeling better today, No increased shortness of breath, No fever or chill. appetite is good and slept well Functional Status: Reports: Tolerating Diet, Ambulating, Urinating - Review of Systems General: Reports: Appetite (good). Denies: Fever, Malaise, Chills HEENT: Denies: Headaches, Sinus Congestion, Sore Throat, Visual Changes Pulmonary: Denies: Shortness of Breath, Pleuritic Chest Pain, Cough, Hemoptysis , Wheezing Cardiovascular: Denies: Chest Pain, Lightheadedness Gastrointestinal: Denies: Abdominal Pain, Constipation, Diarrhea, Difficulty Swallowing, Nausea, Vomiting Genitourinary: Denies: Dysuria, Frequency, Burning, Urgency Musculoskeletal: Denies: Shoulder Pain, Back Pain, Leg Pain, Foot Pain Skin: Denies: Cyanosis, Jaundice, Bruising, Pruritis, Rash Neurological: Denies: Confusion, Tremors, Weakness Psychiatric: Denies: Confusion - Patient Data Vitals - Most Recent: Last Vital Signs Temp 36.8 C 10/07/16 06:58 Pulse 68 10/07/16 08:40 Resp 20 10/07/16 06:58 BP 126/49 L 10/07/16 08:38 Pulse Ox 97 10/07/16 06:58 Weight - Most Recent: 62.596 kg I&O - Last 24 Hours: Intake & Output 10/06/16 10/07/16 10/07/16 22:59 06:59 14:59 Intake Total 100 Output Total 1200 Balance -1100 Lab Results Last 24 Hours: Laboratory Results - last 24 hr 10/06/16 10/06/16 10/06/16 Range/Units 10:30 16:30 23:35 PT (9.0-12.0) SEC INR (0.9-1.2) APTT 50.4 H 46.3 H 61.5 H (22.0-34.0) SEC 10/07/16 10/07/16 Range/Units 05:35 05:35 PT 13.3 H (9.0-12.0) SEC INR 1.3 H (0.9-1.2) APTT 66.4 H (22.0-34.0) SEC Med Orders - Current: Current Medications Acetaminophen (Tylenol) 650 mg PO Q4H PRN PRN Reason: Pain (Mild 1-3)/fever Last Admin: 10/06/16 08:49 Dose: 650 mg Cyanocobalamin (Vitamin B12) 1,000 mcg PO DAILY [facility] Last Admin: 10/07/16 08:38 Dose: 1,000 mcg Digoxin (Lanoxin) 125 mcg PO DAILY@0800 [facility] Last Admin: 10/07/16 08:40 Dose: 125 mcg Docusate Sodium (Colace) 100 mg PO BID PRN PRN Reason: Constipation Fentanyl (Sublimaze) 25 mcg IVPUSH Q4H PRN PRN Reason: Pain Last Admin: 10/07/16 05:43 Dose: 25 mcg Heparin Sodium/Dextrose (Heparin 25,000 Units In D5w 500 Ml) 25,000 units in 500 mls @ 22.536 mls/hr IV TITRATE [facility]; 18 UNITS/KG/HR PRN Reason: Protocol Last Titration: 10/07/16 06:58 Dose: 16.61 units/kg/hr, 20.8 mls/hr Metoprolol Succinate (Toprol Xl) 50 mg PO DAILY [facility] Last Admin: 10/07/16 08:38 Dose: 50 mg Ondansetron HCl (Zofran) 4 mg IVPUSH Q6H PRN PRN Reason: Nausea/Vomiting Pantoprazole Sodium (Protonix Iv) 40 mg IVPUSH Q12HR [facility] Last Admin: 10/07/16 08:41 Dose: 40 mg Potassium Chloride (Klor-Con 10) 20 meq PO BID [facility] Last Admin: 10/07/16 08:40 Dose: 20 meq Sodium Chloride (Saline Flush) 10 ml FLUSH ASDIRECTED PRN PRN Reason: Keep Vein Open Last Admin: 10/05/16 14:32 Dose: 10 ml Warfarin Sodium (Pharmacy To Dose - Warfarin) 1 dose .XX ASDIRECTED [facility] Warfarin Sodium (Coumadin) 7.5 mg PO ONETIME ONE Stop: 10/07/16 14:01 Discontinued Medications Aspirin (Halfprin) 81 mg PO DAILY [facility] Last Admin: 10/05/16 08:28 Dose: 81 mg Clopidogrel Bisulfate (Plavix) 75 mg PO DAILY [facility] Last Admin: 10/05/16 08:27 Dose: 75 mg Diltiazem HCl (Diltiazem) 20 mg IVPUSH ONETIME ONE Stop: 10/04/16 21:45 Last Admin: 10/04/16 21:52 Dose: 20 mg Diltiazem HCl (Cardizem Cd) 120 mg PO DAILY [facility] Diphenhydramine HCl (Benadryl) 25 mg PO ONETIME ONE Stop: 10/05/16 00:28 Last Admin: 10/05/16 00:40 Dose: 25 mg Fentanyl (Sublimaze) 25 mcg IVPUSH Q2H PRN PRN Reason: Pain (severe 7-10) Last Admin: 10/05/16 21:58 Dose: 25 mcg Heparin Sodium (Porcine) (Heparin Sodium) 5,000 units SUBCUT Q8HR [facility] Last Admin: 10/05/16 06:35 Dose: 5,000 units Heparin Sodium (Porcine) (Heparin Sodium) 5,000 units IVPUSH ONETIME ONE Stop: 10/05/16 13:23 Last Admin: 10/05/16 14:45 Dose: 5,000 units Diltiazem HCl 100 mg/ Sodium (Chloride) 100 mls @ 5 mls/hr IV TITRATE ONE; 5 MG /HR PRN Reason: Protocol Stop: 10/05/16 18:29 Last Admin: 10/04/16 22:53 Dose: 5 mg/hr, 5 mls/hr Diltiazem HCl 100 mg/ Sodium (Chloride) 100 mls @ 5 mls/hr IV TITRATE [facility]; 5 MG /HR PRN Reason: Protocol Sodium Chloride (Normal Saline) 1,000 mls @ 75 mls/hr IV ASDIRECTED [facility] Stop: 10/06/16 00:31 Last Admin: 10/05/16 16:49 Dose: 75 mls/hr Iopamidol (Isovue-370 (76%)) 100 ml IVPUSH ONETIME ONE Stop: 10/05/16 11:14 Last Admin: 10/05/16 11:45 Dose: 58 ml Non-Formulary Medication (Diphenhydramine Hcl [Z-Sleep]) 30 ml PO BEDTIME [facility] Last Admin: 10/05/16 01:21 Dose: Not Given Non-Formulary Medication (Diphenhydramine Hcl [Z-Sleep]) 25 mg PO BEDTIME [facility] Pantoprazole Sodium (Protonix) 40 mg PO ACBREAKFAST [facility] Last Admin: 10/05/16 06:35 Dose: 40 mg Warfarin Sodium (Coumadin) 5 mg PO ONETIME ONE Stop: 10/05/16 20:47 Last Admin: 10/05/16 21:18 Dose: 5 mg Warfarin Sodium (Coumadin) 5 mg PO ONETIME ONE Stop: 10/06/16 16:16 Last Admin: 10/06/16 16:27 Dose: 5 mg - Exam Quality Assessment: DVT Prophylaxis. No: Supplemental Oxygen, Urine Catheter General: Alert, Oriented, Cooperative HEENT: Pupils Equal, Pupils Reactive, Mucous Membr. Moist/Lead Neck: Supple. No: Lymphadenopathy, JVD Lungs: Clear to Auscultation, Normal Respiratory Effort Cardiovascular: Regular Rate, Regular Rhythm, Murmurs GI/Abdominal Exam: Normal Bowel Sounds, Soft, Non-Tender, No Distention. No: Rebound, Tender (Female) Exam: Deferred Back Exam: Normal Inspection, Full Range of Motion Extremities: Normal Inspection. No: Pedal Edema, Leg Pain Skin: Warm, Dry, Intact Neurological: No New Focal Deficit Psy/Mental Status: Alert, Normal Affect, Normal Mood - Problem List & Annotations (1) Pulmonary embolism SNOMED Code(s): 73982996, 13935218 Code(s): I26.99 - OTHER PULMONARY EMBOLISM WITHOUT ACUTE COR PULMONALE Status: Acute Current Visit: Yes (2) Rapid atrial fibrillation, afib SNOMED Code(s): 935847466 Code(s): I48.91 - UNSPECIFIED ATRIAL FIBRILLATION Status: Acute Current Visit: Yes - Problem List Review Problem List Initiated/Reviewed/Updated: Yes - My Orders Last 24 Hours: My Active Orders 10/07/16 08:57 Supplement (Dietary) [Dietary Supplements] [RC] BIDAC - Plan Plan:: The patient is an 86-year-old lady with a history of paroxysmal atrial fibrillation she has been on digoxin and Cardizem and metoprolol in the past She presented with rapid atrial fibrillation. she was Started on Cardizem drip and later converted to sinus rhythm. He is now off and continue oral metoprolol and Digoxin But the pt continued to have chest pain and later found to have high D-Dimer and also CT chest with Contrast showed Rt Pulmonary artery Thrombosis Rt Pulmonary artery Thrombosis: The source of thrombus is not known but the pt is on heparin drip and coumadin, she is not theurapeutic and will be going home once INR is in acceptable range -Pharmacy to dose coumadin Coronary artery disease Continue aspirin, Plavix Hypertension and A- fib: The is now controlled , BP acceptable and will continue metoprolol at 50 mg daily Hypokalemia: Potassium is acceptable and continue oral potassium supplement 20 meq 2 times a day DVT prophylaxis : Pt is on heparin drip and also on coumadin GI prophylaxis: She is on protonic 40 mg IV q12 hrs
[2016-10-07] MEDS ORDERED: Warfarin 2.5 MG Tab PO ONE ×2 (14:00→14:15)
[2016-10-07] MEDS ORDERED: Warfarin 5 MG Tab PO ONE (14:15)
[2016-10-07] MEDS: Heparin Sodium/D5W 25,000 UNITS/500 ML BAG IV SCH (16:55)
[2016-10-07] MEDS: Docusate Sodium 100 MG Cap PO PRN (18:11)
[2016-10-08 06:45] LABS: CHLORIDE,CL 109 mmol/L (101-111); SODIUM,NA 138 mmol/L (135-145)
[2016-10-08] MEDS: Pantoprazole 40 MG Vial IVPUSH SCH (08:08)
[2016-10-08] MEDS: Sodium Chloride 0.9% 10 ML Syringe FLUSH PRN ×3 (08:11→10:00)
[2016-10-08] MEDS: Digoxin 125 MCG Tab PO SCH (08:13)
[2016-10-08] MEDS: Potassium Chloride 10 MEQ Tab.ER PO SCH ×2 (08:14→20:37)
[2016-10-08] MEDS: Metoprolol Succinate 50 MG Tab.ER PO SCH (08:14)
[2016-10-08] MEDS: Cyanocobalamin (Vitamin B12) 100 MCG Tab PO SCH (08:15)
[2016-10-08] MEDS: Docusate Sodium 100 MG Cap PO PRN (08:24)
[2016-10-08] MEDS: CATARACTIVE EYELF SCH ×4 (10:03→20:41)
[2016-10-08] MEDS ORDERED: Polyethylene Glycol 3350 Powder 17 GM Packet PO PRN (10:17)
--- NOTE | 2016-10-08 11:54 | PCM.PN ---
- General Info Date of Service: 10/08/16 Admission Dx/Problem (Free Text): Admission Diagnosis/Problem Admission Diagnosis/Problem Pt was admitted with Atrial fibrillation and later she was found to have Right Pulmonary artery Thromboembolus Subjective Update: Pt is feeling better today, No increased shortness of breath, No fever or chill , appetite is good and slept well Functional Status: Reports: Tolerating Diet, Ambulating, Urinating - Review of Systems General: Reports: Weakness, Appetite (good). Denies: Fever, Chills HEENT: Denies: Headaches, Sinus Congestion, Sore Throat Pulmonary: Reports: Shortness of Breath. Denies: Cough, Sputum, Wheezing Cardiovascular: Denies: Chest Pain, Lightheadedness Gastrointestinal: Reports: Constipation. Denies: Abdominal Pain, Nausea, Vomiting Genitourinary: Denies: Dysuria, Frequency, Burning, Urgency, Flank Pain Musculoskeletal: Denies: Shoulder Pain, Back Pain, Foot Pain Skin: Denies: Cyanosis, Bruising, Pruritis, Rash Neurological: Denies: Confusion, Tremors, Weakness Psychiatric: Denies: Confusion, Anxiety - Patient Data Vitals - Most Recent: Last Vital Signs Temp 36.5 C 10/08/16 07:00 Pulse 64 10/08/16 08:14 Resp 20 10/08/16 07:00 BP 116/56 L 10/08/16 08:14 Pulse Ox 97 10/08/16 07:00 Weight - Most Recent: 62.596 kg I&O - Last 24 Hours: Intake & Output 10/07/16 10/08/16 10/08/16 22:59 06:59 14:59 Intake Total 346 Output Total 200 Balance -200 346 Lab Results Last 24 Hours: Laboratory Results - last 24 hr 10/08/16 10/08/16 Range/Units 06:00 06:00 PT 30.8 H (9.0-12.0) SEC INR 3.1 H (0.9-1.2) APTT 78.2 H (22.0-34.0) SEC Sodium 138 (135-145) mmol/L Potassium 4.8 (3.6-5.0) mmol/L Chloride 109 (101-111) mmol/L Carbon Dioxide 19.0 L (21.0-31.0) mmol/L Anion Gap 14.8 BUN 8 (7-18) mg/dL Creatinine 0.6 (0.6-1.3) mg/dL Est Cr Clr Drug Dosing 65.34 mL/min Estimated GFR (MDRD) > 60 Glucose 105 (74-105) mg/dL Calcium 9.1 (8.4-10.2) mg/dl Med Orders - Current: Current Medications Acetaminophen (Tylenol) 650 mg PO Q4H PRN PRN Reason: Pain (Mild 1-3)/fever Last Admin: 10/06/16 08:49 Dose: 650 mg Cyanocobalamin (Vitamin B12) 1,000 mcg PO DAILY [facility] Last Admin: 10/08/16 08:15 Dose: 1,000 mcg Digoxin (Lanoxin) 125 mcg PO DAILY@0800 [facility] Last Admin: 10/08/16 08:13 Dose: 125 mcg Docusate Sodium (Colace) 100 mg PO BID PRN PRN Reason: Constipation Last Admin: 10/08/16 08:24 Dose: 100 mg Fentanyl (Sublimaze) 25 mcg IVPUSH Q4H PRN PRN Reason: Pain Last Admin: 10/07/16 21:17 Dose: 25 mcg Metoprolol Succinate (Toprol Xl) 50 mg PO DAILY [facility] Last Admin: 10/08/16 08:14 Dose: 50 mg Cataractive 3 Own (Med) 0 each EYELF QID [facility] Last Admin: 10/08/16 10:03 Dose: 1 each WarfarinNo Dose (Ordered) 0 each PO ONETIME ONE Stop: 10/08/16 14:01 Ondansetron HCl (Zofran) 4 mg IVPUSH Q6H PRN PRN Reason: Nausea/Vomiting Pantoprazole Sodium (Protonix Iv) 40 mg IVPUSH Q12HR [facility] Last Admin: 10/08/16 08:08 Dose: 40 mg Polyethylene Glycol (Miralax) 17 gm PO BEDTIME PRN PRN Reason: Constipation Potassium Chloride (Klor-Con 10) 20 meq PO BID [facility] Last Admin: 10/08/16 08:14 Dose: 20 meq Sodium Chloride (Saline Flush) 10 ml FLUSH ASDIRECTED PRN PRN Reason: Keep Vein Open Last Admin: 10/08/16 10:00 Dose: 10 ml Warfarin Sodium (Pharmacy To Dose - Warfarin) 1 dose .XX ASDIRECTED [facility] Discontinued Medications Aspirin (Halfprin) 81 mg PO DAILY [facility] Last Admin: 10/05/16 08:28 Dose: 81 mg Clopidogrel Bisulfate (Plavix) 75 mg PO DAILY [facility] Last Admin: 10/05/16 08:27 Dose: 75 mg Diltiazem HCl (Diltiazem) 20 mg IVPUSH ONETIME ONE Stop: 10/04/16 21:45 Last Admin: 10/04/16 21:52 Dose: 20 mg Diltiazem HCl (Cardizem Cd) 120 mg PO DAILY [facility] Diphenhydramine HCl (Benadryl) 25 mg PO ONETIME ONE Stop: 10/05/16 00:28 Last Admin: 10/05/16 00:40 Dose: 25 mg Fentanyl (Sublimaze) 25 mcg IVPUSH Q2H PRN PRN Reason: Pain (severe 7-10) Last Admin: 10/05/16 21:58 Dose: 25 mcg Heparin Sodium (Porcine) (Heparin Sodium) 5,000 units SUBCUT Q8HR [facility] Last Admin: 10/05/16 06:35 Dose: 5,000 units Heparin Sodium (Porcine) (Heparin Sodium) 5,000 units IVPUSH ONETIME ONE Stop: 10/05/16 13:23 Last Admin: 10/05/16 14:45 Dose: 5,000 units Diltiazem HCl 100 mg/ Sodium (Chloride) 100 mls @ 5 mls/hr IV TITRATE ONE; 5 MG /HR PRN Reason: Protocol Stop: 10/05/16 18:29 Last Admin: 10/04/16 22:53 Dose: 5 mg/hr, 5 mls/hr Diltiazem HCl 100 mg/ Sodium (Chloride) 100 mls @ 5 mls/hr IV TITRATE DEBBIE; 5 MG /HR PRN Reason: Protocol Heparin Sodium/Dextrose (Heparin 25,000 Units In D5w 500 Ml) 25,000 units in 500 mls @ 17.527 mls/hr IV TITRATE DEBBIE; 14 UNITS/KG/HR PRN Reason: Protocol Last Titration: 10/08/16 08:20 Dose: 13.97 units/kg/hr, 17.5 mls/hr Sodium Chloride (Normal Saline) 1,000 mls @ 75 mls/hr IV ASDIRECTED DEBBIE Stop: 10/06/16 00:31 Last Admin: 10/05/16 16:49 Dose: 75 mls/hr Iopamidol (Isovue-370 (76%)) 100 ml IVPUSH ONETIME ONE Stop: 10/05/16 11:14 Last Admin: 10/05/16 11:45 Dose: 58 ml Non-Formulary Medication (Diphenhydramine Hcl [Z-Sleep]) 30 ml PO BEDTIME DEBBIE Last Admin: 10/05/16 01:21 Dose: Not Given Non-Formulary Medication (Diphenhydramine Hcl [Z-Sleep]) 25 mg PO BEDTIME DEBBIE Warfarin, No Dose (Ordered) 1 each PO ONETIME ONE Stop: 10/08/16 14:01 Pantoprazole Sodium (Protonix) 40 mg PO ACBREAKFAST DEBBIE Last Admin: 10/05/16 06:35 Dose: 40 mg Warfarin Sodium (Coumadin) 5 mg PO ONETIME ONE Stop: 10/05/16 20:47 Last Admin: 10/05/16 21:18 Dose: 5 mg Warfarin Sodium (Coumadin) 5 mg PO ONETIME ONE Stop: 10/06/16 16:16 Last Admin: 10/06/16 16:27 Dose: 5 mg Warfarin Sodium (Coumadin) 7.5 mg PO ONETIME ONE Stop: 10/07/16 14:01 Last Admin: 10/07/16 14:07 Dose: 7.5 mg Warfarin Sodium (Coumadin) 2.5 mg PO ONETIME ONE Stop: 10/07/16 14:16 Last Admin: 10/07/16 14:53 Dose: Not Given Warfarin Sodium (Coumadin) 5 mg PO ONETIME ONE Stop: 10/07/16 14:16 Last Admin: 10/07/16 14:53 Dose: Not Given - Exam Quality Assessment: Supplemental Oxygen, DVT Prophylaxis. No: Urine Catheter General: Alert, Oriented, Cooperative, No Acute Distress HEENT: Pupils Equal, Pupils Reactive, EOMI, Mucous Membr. Moist/[place] Neck: Supple, No JVD. No: Lymphadenopathy Lungs: Clear to Auscultation, Normal Respiratory Effort. No: Crackles, Wheezing Cardiovascular: Regular Rate, Regular Rhythm, Murmurs GI/Abdominal Exam: Normal Bowel Sounds, No Organomegaly. No: Guarding, Rebound (Female) Exam: Deferred Back Exam: Normal Inspection Extremities: Normal Inspection, No Pedal Edema Skin: Warm, Dry, Intact, Ecchymosis Neurological: No New Focal Deficit Psy/Mental Status: Alert, Normal Affect, Normal Mood - Problem List & Annotations (1) Pulmonary embolism SNOMED Code(s): 49377384, 15094443 Code(s): I26.99 - OTHER PULMONARY EMBOLISM WITHOUT ACUTE COR PULMONALE Status: Acute Current Visit: Yes (2) Rapid atrial fibrillation, afib SNOMED Code(s): 138737416 Code(s): I48.91 - UNSPECIFIED ATRIAL FIBRILLATION Status: Acute Current Visit: Yes - Problem List Review Problem List Initiated/Reviewed/Updated: Yes - My Orders Last 24 Hours: My Active Orders 10/08/16 09:46 Non-Formulary Medication [NF Drug] 0 each EYELF QID 10/08/16 10:17 Polyethylene Glycol 3350 [MiraLAX] 17 gm PO BEDTIME PRN 10/08/16 14:00 Non-Formulary Medication [NF Drug] 0 each PO ONETIME ONE 10/09/16 06:00 CBC WITH AUTO DIFF [HEME] Routine PLATELET COUNT,PLT [HEME] Routine - Plan Plan:: The patient is an 86-year-old lady with a history of paroxysmal atrial fibrillation she has been on digoxin and Cardizem and metoprolol in the past She presented with rapid atrial fibrillation. she was Started on Cardizem drip and later converted to sinus rhythm. He is now off and continue oral metoprolol and Digoxin But the pt continued to have chest pain and later found to have high D-Dimer and also CT chest with Contrast showed Rt Pulmonary artery Thrombosis Rt Pulmonary artery Thrombosis: The source of thrombus is not known , pt had lower extremuity doppler and it was negative for DVT, - Will stop heparin drip today and continue coumadin, [place] -Pharmacy to dose coumadin, INR is high today and possibly will be able to go home tomorrow -Need to follow in coumadin clinic after discharge Coronary artery disease Continue aspirin, Plavix Hypertension and A- fib: The is now controlled , BP acceptable and will continue metoprolol at 50 mg daily Hypokalemia: Potassium is acceptable and continue oral potassium supplement 20 meq 2 times a day Constipation: Pt had no BM for 3-4 days, on senna, Colace, will add Miralax today DVT prophylaxis : Pt is on heparin drip and also on coumadin GI prophylaxis: Will switch to protonic 40 PO BID
[2016-10-08] MEDS ORDERED: [UNRECOGNIZED DRUG - REMARK] PO ONE (14:00)
[2016-10-08] MEDS ORDERED: [UNRECOGNIZED DRUG - REMARK] PO ONE (14:00)
[2016-10-08] MEDS ORDERED: Magnesium Hydroxide 400 MG/5 ML Susp 30 ML Cup PO PRN (14:51)
[2016-10-08] MEDS ORDERED: diphenhydrAMINE 25 MG Tab PO PRN (20:22)
[2016-10-08] MEDS: Acetaminophen 325 MG Tab PO PRN (20:38)
[2016-10-08] MEDS: Pantoprazole 40 MG Tab.CR PO SCH (20:38)
[2016-10-09 08:12] VITALS: BP 128/67
--- NOTE | 2016-10-09 09:04 | PN ---
DATE: 10/05/2016 SUBJECTIVE: Mrs. Hinson was admitted earlier this morning when she presented with atrial fibrillation with a rapid ventricular rate. She has long history of atrial fibrillation and is not currently taking a beta-callie or a calcium channel callie. She had been on these in the past and experienced side effects. She felt dizzy possibly due to low blood pressure and medications were eventually stopped and she has only been on digoxin 125 mcg daily. Her ventricular rate on admission to the emergency room was 165. She was treated with IV diltiazem, which quickly brought her rate down and was doing well enough that her diltiazem was discontinued this morning. At the current time, she appears to be alternating with normal sinus rhythm and atrial fibrillation with controlled ventricular rate. On exam this morning, her main complaint was of right lateral chest pain. This started several days ago. There has been no trauma to the chest. No coughing. No fever. No shortness of breath. Because of the complaint of lateral chest pain, a D-dimer was obtained and was elevated at 3360. Other repeat labs this morning showed a troponin of 0.05. This had been 0.02 on admission. Basic metabolic profile is unremarkable. Renal function was intact. BNP at the time of admission had only been modestly elevated at 242. The elevated D-dimer raise concern about the possibility of a pulmonary embolism. A CT scan of the chest with IV contrast was obtained. This showed a thrombus in the right pulmonary artery. There was intraluminal filling defect in the mid tier of the pulmonary artery segment proximally in the right lung. There were no other acute findings. The findings were explained to Ms. Hinson, and she agreed to anticoagulation. She was started on IV heparin and also eventually agreed to the addition of warfarin. Her patient's status was changed to acute inpatient. We will pursue further workup for possible source for the thromboembolism. Otherwise, she remains hemodynamically stable. IMPRESSION: Right pulmonary artery thrombus. PLAN: As above. [facility] /[id number] MTDD
[2016-10-09] MEDS: Cyanocobalamin (Vitamin B12) 100 MCG Tab PO SCH (09:17)
[2016-10-09] MEDS: Metoprolol Succinate 50 MG Tab.ER PO SCH (09:18)
[2016-10-09] MEDS: Digoxin 125 MCG Tab PO SCH (09:18)
[2016-10-09] MEDS: Pantoprazole 40 MG Tab.CR PO SCH (09:18)
[2016-10-09] MEDS: Potassium Chloride 10 MEQ Tab.ER PO SCH (09:19)
[2016-10-09] MEDS: CATARACTIVE EYELF SCH ×2 (09:19→13:36)
[2016-10-09] MEDS ORDERED: Warfarin 2.5 MG Tab PO ONE (12:51)
--- NOTE | 2016-10-11 15:08 | DISCH ---
DISCHARGE DIAGNOSES: 1. Right pulmonary artery thromboembolus. 2. Atrial fibrillation with rapid ventricular response. 3. Chronic paroxysmal atrial fibrillation. 4. Right lateral chest wall pain. 5. Started on warfarin anticoagulation. 6. Negative lower extremity Doppler. 7. Echocardiogram on 10/06/2016, with preserved ejection fraction of 65% to 70%, grade 1 diastolic dysfunction, concentric left ventricular hypertrophy, otherwise unremarkable. No thrombus seen. 8. Previous gastrointestinal bleed, on Xarelto, source not found. 9. Impaired vision due to bilateral cataracts. BRIEF HISTORY OF PRESENT ILLNESS: Mrs. Hinson is an 86-year-old lady who presented to the emergency room, complaining of right-sided chest pain starting to "creep into the throat." She said this is similar to the sensation she gets when her "heart beats too fast." She does have a history of atrial fibrillation and has presented before AFib with RVR. She said she is just not feeling well since July and her activity level has decreased. She felt shaky all summer. She saw her entry specialist, Dr. Zhang, 2 months ago and is scheduled to see him again in 1 year. In the Emergency Department, she was found to be in atrial fibrillation with a rapid ventricular rate of 142. She is admitted for further management. She was started on a Cardizem drip at low rate and she quickly converted to atrial fibrillation with a controlled ventricular rate, and later was seen to be, for the most part, in normal sinus rhythm. Usual medications were continued. She was placed on heparin for VTE prophylaxis. PERTINENT LABS AND X-RAYS: CBC on day of admission showed a normal white count, hemoglobin and hematocrit 13.7 and 42.6, platelets were normal. Prior to discharge, CBC was essentially unchanged. Chemistry showed normal electrolytes. GFR was more than 60. Creatinine clearance was 49, which improved to 56 before discharge. LFTs were unremarkable. First troponin was negative at 0.02, two subsequent troponins were 0.05. Albumin was 4.0. Amylase and lipase were normal. Digoxin level was 0.7. The D-dimer was ordered following admission and this was elevated at 3360. INR was followed during the admission. Discharge INR was 3.0. A single-view chest x-ray was taken on day of admission, showed no active disease, no cardiomegaly, no pulmonary venous congestion. A venous Doppler study was performed and showed no evidence for deep venous thrombosis in either leg. A CT scan of the chest with IV contrast was obtained on the day of admission and showed intraluminal filling defects in the mid tier of the pulmonary artery segments proximally in the right lung. No other major findings of concern. HOSPITAL COURSE: Mrs. Hinson was admitted as an acute inpatient. Initial treatment was focused on the atrial fibrillation with RVR. During her physical exam on the , she continued to complain of right lateral chest wall pain. A D-dimer was obtained and was elevated at 3360. This led to the CT scan of the chest with IV contrast that confirmed a right pulmonary artery embolism. Mrs. Hinson was made an acute inpatient. We explained to her the findings and their significance. Subcutaneous heparin was stopped and she was started on IV heparin solution for anticoagulation. We also started her on warfarin. Her INR was carefully followed, baseline INR was 1.0; baseline PTT was within normal limits. Her INR was 3.0 on the day of discharge. Mrs. Hinson was seen by Physical and Occupational Therapy while in the hospital and they felt that she did not need further services and that she was doing fairly well with ambulation; therefore, she will be discharged to home. Mrs. Hinson has significant bilateral cataracts at this time, impairing her vision. She was scheduled to have her cataracts removed on Sunday, 11 of October, and the other on Sunday, the 18 of October[address] We called Dr. Gentile in [place] at [facility], informing him of the PE and the initiation of the warfarin. We were told that she should be on warfarin for at least a month before the cataract surgery could be done. We explained this to Mrs. Hinson and she was understandably upset, as she had very much wanted to have the cataracts removed because of the impact that having on her vision and her activities of daily living. She is now scheduled to have cataract surgery on November 15 and November 22. We have informed Dr. Barnes's nurse of this, they will need to repeat her preop clearance. Dr. Gentile asked that she be on the Coumadin for a month before having the surgery. Review of her clinical data shows that she is taking adequate fluids. She is voiding and moving her bowels. She is tolerating her diet. Her vital signs have been stable and she has been afebrile PHYSICAL EXAMINATION: Vital Signs: Blood pressure 128/67, pulse 64, respiratory rate 20, oxygen saturation 98% on room air, and she was afebrile. HEENT: Unremarkable. ENT was clear. No JVDs or bruits. No adenopathy. No thyromegaly. Chest: Showed clear, but diminished bilateral breath sounds, particularly on the right lateral and base. Heart: Showed regular rate and rhythm. Abdomen: Soft and benign. Extremities: Showed no edema. Neurologic: She is intact. DISCHARGE MEDICATIONS: 1. Potassium chloride 20 mEq b.i.d. 2. Diphenhydramine (Z-Sleep) 30 mL at bedtime. 3. Pantoprazole 40 mg at breakfast. 4. Nitrostat 0.4 mg p.r.n. chest pain. 5. Digoxin 125 mcg daily. 6. Cyanocobalamin 1000 mcg p.o. daily. 7. Tylenol Extra Strength 500 mg every 6 hours p.r.n. 8. Warfarin 3 mg daily. 9. Metoprolol succinate 50 mg daily. She has multiple allergies and intolerances including trazodone, atorvastatin, buprenorphine, diltiazem, Vytorin, lorazepam, [place], propoxyphene, rosuvastatin, simvastatin, codeine, morphine, nefazodone, and oxycodone. FOLLOWUP: She has a followup appointment with Dr. Charlie Barnes on October 20. A referral was made to [facility] and they will be picking her up this week; they will be monitoring her INR at home and reporting the results to Dr. Barnes. We would also like them in the home because we feel that there is some confusion on Mrs. Hinson's part and we would like to see that there is no confusion with the medications. She also has poor eyesight at this time because of bilateral cataracts. Mrs. Hinson was scheduled to have cataract surgery performed on October 11 and . We informed her eye surgeon, Dr. Gentile of the pulmonary embolism and that she was starting warfarin. It is Dr. Gentile's usual policy that if someone starts Coumadin, he would like them to be on it for at least a month before he will do the cataract surgery; therefore, the surgery has been re-scheduled for November [address] Barnes will schedule an another preop clearance to coincide with the time frame for the new surgery. I spoke with his nurse, Abigail, and with Dr. Barnes regarding this. CONDITION AT THE TIME OF DISCHARGE: Improved and stable. [facility] /[id number] MTDD
--- NOTE | 2016-10-20 10:49 | EKG ---
10/04/2016- JOEY CASTANO - EKG per my reading shows narrow complex tachycardia, quite regular at a rate of [address] [facility] /[id number]
== END 2016-10-09 19:20 | disposition home or self-care (01) | DRG 308 ==
LOC: DL.ED 21:23 → UNDOADMOB 23:36 → DL.MS 23:36 → UNDOADMOB 23:44 → EEVIPCON 10-05 13:17 → INTOOBSV 10-05 13:17 → OBSVTOIN 10-05 13:17 → DL.MS 10-05 13:51 → OBSVTOIN 10-05 13:51
PROVIDERS: ADMIT Internal Medicine; ATTEND Internal Medicine
DX: I48.0 Paroxysmal atrial fibrillation (principal); I26.99 Other pulmonary embolism without acute cor pulmonale; I25.10 Atherosclerotic heart disease of native coronary artery without angina pectoris; E87.6 Hypokalemia; I10 Essential (primary) hypertension; Z95.5 Presence of coronary angioplasty implant and graft; E78.00 Pure hypercholesterolemia, unspecified; K21.9 Gastro-esophageal reflux disease without esophagitis; K59.09 Other constipation; M19.90 Unspecified osteoarthritis, unspecified site; F32.9 Major depressive disorder, single episode, unspecified; F41.9 Anxiety disorder, unspecified; Z79.82 Long term (current) use of aspirin; M85.80 Other specified disorders of bone density and structure, unspecified site; R42 Dizziness and giddiness; Z79.02 Long term (current) use of antithrombotics/antiplatelets; Z88.8 Allergy status to other drugs, medicaments and biological substances; Z88.6 Allergy status to analgesic agent; Z79.899 Other long term (current) drug therapy; H26.9 Unspecified cataract; R06.02 Shortness of breath
CPT/HCPCS: 36415; 71010; 71260; 80048; 80053; 80162; 82150; 82553; 83690; 83880; 84484; 85025; 85379; 85610; 85730; 93005; 93010; 93306; 93970; 96365; 96366; 96372; 96374; 96375; 96376; 99284; 99285; A9270-GY; C9113; G0378; J1644; J3010; J3490; J7030; J7050; Q9967

== ENCOUNTER 2016-11-09 19:20 | Inpatient (IN) | payer MEDICARE, BC ==
--- NOTE | 2016-11-09 19:47 | EDM.PDOC ---
ED HPI GENERAL MEDICAL PROBLEM - General Chief Complaint: General Stated Complaint: COMING BY AMBULANCE, FEELING WEAK Time Seen by Provider: 11/09/16 19:38 Source of Information: Reports: Patient, EMS History Limitations: Reports: No Limitations - History of Present Illness INITIAL COMMENTS - FREE TEXT/NARRATIVE: ED via [facility] accompanied by family, Patient and family report increased weakness worsening over past 24 hours. Lack of appetite today only one cup of soup.. Requiring 2 to transfer. Notes frequent voiding. No nausea or vomiting. Denies bowel problems. . Family not increased forgetfulness today. - Related Data Allergies Allergy/AdvReac Type Severity Reaction Status Date / Time trazodone Allergy Mild Insomnia Verified 11/09/16 19:24 atorvastatin calcium Allergy Unknown Muscle Verified 11/09/16 19:24 [From Lipitor] Aches buprenorphine Allergy Unknown UNKNOWN Verified 11/09/16 19:24 diazepam [From Valium] Allergy Unknown UNKNOWN Verified 11/09/16 19:24 ezetimibe [From Vytorin] Allergy Unknown Muscle Verified 11/09/16 19:24 Aches lorazepam [From Ativan] Allergy Unknown Depression Verified 11/09/16 19:24 pentazocine lactate Allergy Unknown UNKNOWN Verified 11/09/16 19:24 [From Talwin] propoxyphene Allergy Unknown UNKNOWN Verified 11/09/16 19:24 rosuvastatin calcium Allergy Unknown Muscle Verified 11/09/16 19:24 [From Crestor] Aches simvastatin [From Vytorin] Allergy Unknown Muscle Verified 11/09/16 19:24 Aches codeine Allergy unknown Verified 11/09/16 19:24 morphine Allergy Itching Verified 11/09/16 19:24 nefazodone [Nefazodone] Allergy Insomnia Verified 11/09/16 19:24 oxycodone [Oxycodone] Allergy confusion/s Verified 11/09/16 19:24 edation Home Meds: Home Meds Nitroglycerin [Nitrostat] 0.4 mg PO ASDIRECTED PRN 10/31/13 [History] Acetaminophen [Acetaminophen Extra Strength] 500 mg PO Q6H PRN 12/14/14 [History ] Pantoprazole Sodium [Protonix] 40 mg PO ACBREAKFAST 09/10/15 [History] Digoxin 125 mcg PO WITHLUNCH 08/01/16 [History] Cyanocobalamin (Vitamin B-12) [B-12] 1,000 mcg PO DAILY 09/12/16 [History] diphenhydrAMINE HCl [Z-Sleep] 30 ml PO BEDTIME 09/12/16 [History] Potassium Chloride [Potassium Chloride] 20 meq PO BID 10/04/16 [History] Metoprolol Succinate [Toprol XL] 50 mg PO DAILY tab.er 10/09/16 [Rx] Non-Formulary Medication [NF Drug] 0 each EYELF QID each 10/09/16 [Rx] Warfarin Sodium 3 mg PO DAILY #30 tablet 10/09/16 [Rx] Past Medical History HEENT History: Reports: Cataract, Impaired Vision Other HEENT History: wears corrective lenses, occipital neuralgia Cardiovascular History: Reports: Afib, CAD, High Cholesterol Respiratory History: Reports: Bronchitis, Recurrent Other Respiratory History: Recurrent aspiration bronchitis/pneumonia Gastrointestinal History: Reports: Chronic Constipation, GERD, Hemorrhoids Other Gastrointestinal History: Kendrick's esophagus, duodenitis Genitourinary History: Reports: Renal Calculus CLINICAL WRITER History: Reports: Other (See Below) Other OB/BYN History: 5 NVD and 1 miscarriage Musculoskeletal History: Reports: Arthritis Other Musculoskeletal History: Forestier's disease, DDD, Fall Neurological History: Reports: Vertigo Psychiatric History: Reports: Anxiety, Depression Other Psychiatric History: Insomnia, mild memory impairment Endocrine/Metabolic History: Reports: Osteopenia Hematologic History: Reports: Anticoagulation Therapy, Other (See Below) Other Hematologic History: on Plavix for atrial fib Immunologic History: Reports: None Oncologic (Cancer) History: Reports: None Dermatologic History: Reports: None - Infectious Disease History Infectious Disease History: Reports: Chicken Pox, Measles - Past Surgical History HEENT Surgical History: Reports: Adenoidectomy, Tonsillectomy Cardiovascular Surgical History: Reports: Coronary Artery Stent, Varicose Other Cardiovascular Surgeries/Procedures: 2 stents Respiratory Surgical History: Reports: None GI Surgical History: Reports: Appendectomy, Cholecystectomy, Colonoscopy, Colostomy, EGD Other GI Surgeries/Procedures: Tubular Adenoma of colon Female Surgical History: Reports: Hysterectomy, Kidney stone extraction Neurological Surgical History: Reports: None Musculoskeletal Surgical History: Reports: None Social & Family History - Family History Family Medical History: Noncontributory - Tobacco Use Smoking Status *Q: Never Smoker Second Hand Smoke Exposure: No - Caffeine Use Caffeine Use: Reports: None - Alcohol Use Days Per Week of Alcohol Use: 0 - Recreational Drug Use Recreational Drug Use: No ED ROS GENERAL - Review of Systems Review Of Systems: See Below Constitutional: Reports: Malaise, Weakness, Decreased Appetite. Denies: Fever, Chills HEENT: Reports: No Symptoms Respiratory: Reports: No Symptoms Cardiovascular: Reports: Lightheadedness (yesterday when up to Bathroom) GI/Abdominal: Denies: Abdominal Pain, Black Stool, Vomiting : Reports: Frequency Musculoskeletal: Reports: No Symptoms Skin: Reports: Bruising (chronic) Neurological: Reports: Difficulty Walking (requiring 2 to transfer, legs weak). Denies: Headache, Numbness, Trouble Speaking Hematologic/Lymphatic: Reports: Easy Bruising ED EXAM, GENERAL - Physical Exam Exam: See Below Exam Limited By: No Limitations General Appearance: Alert, Mild Distress, Thin Eye Exam: Bilateral Eye: EOMI, PERRL Ears: Normal External Exam, Normal TMs Nose: Normal Inspection, Normal Mucosa Throat/Mouth: Normal Inspection, Normal Lips, Normal Oropharynx Head: Atraumatic, Normocephalic Neck: Normal Inspection Respiratory/Chest: No Respiratory Distress, Lungs Clear, Other (slight decrease in bases) Cardiovascular: Normal Peripheral Pulses, Regular Rate, Rhythm, No Edema GI/Abdominal: Normal Bowel Sounds, Soft Extremities: Normal Inspection, Normal Range of Motion Neurological: Alert, Oriented, Normal Cognition, Other (No pronator drift, generalized weakenss, movements slow and methodical) Psychiatric: Normal Affect Skin Exam: Warm, Dry, Intact, Normal Color Course - Vital Signs Last Recorded V/S: Last Vital Signs Temp 99.7 F 11/09/16 22:57 Pulse 84 11/09/16 22:57 Resp 20 11/09/16 22:57 BP 134/67 11/09/16 22:57 Pulse Ox 97 11/09/16 22:57 - Orders/Labs/Meds Orders: Active Orders 24 hr Category Date Time Status EKG Documentation Completion [RC] URGENT Care 11/09/16 19:47 Active Medication Orders Acetaminophen (Tylenol) 650 mg PO Q4H PRN PRN Reason: Pain (Mild 1-3)/fever Acetaminophen (Tylenol Extra Strength) 500 mg PO Q6H PRN PRN Reason: Pain Digoxin (Lanoxin) 125 mcg PO WITHLUNCH DEBBIE Sodium Chloride (Normal Saline) 1,000 mls @ 75 mls/hr IV ASDIRECTED DEBBIE Metoprolol Succinate (Toprol Xl) 50 mg PO DAILY [facility] Nitroglycerin (Nitrostat) 0.4 mg SL ASDIRECTED PRN PRN Reason: Chest Pain Non-Formulary Medication (Cyanocobalamin (Vitamin B-12) [B-12]) 1,000 mcg PO DAILY [facility] Non-Formulary Medication (Pantoprazole Sodium [Protonix]) 40 mg PO ACBREAKFAST [facility] Warfarin Sodium (Coumadin) 5 mg PO DAILY [facility] Labs: Laboratory Tests 11/09/16 11/09/16 11/09/16 Range/Units 20:02 20:02 20:02 WBC 3.5 L (5.0-10.0) 10^3/uL RBC 4.31 (4.2-5.4) 10^6/uL Hgb 13.1 (12.0-16.0) g/dL Hct 39.8 (37.0-47.0) % MCV 92.3 (80-100) fL MCH 30.4 (27.0-34.0) pg MCHC 32.9 L (33.0-35.0) g/dL Plt Count 124 L (150-450) 10^3/uL Neut % (Auto) 89.9 H (42.2-75.2) % Lymph % (Auto) 4.6 L (20.5-50.1) % Harris % (Auto) 4.9 (2-8) % Eos % (Auto) 0.3 L (1.0-3.0) % Baso % (Auto) 0.3 (0.0-1.0) % PT 13.5 H (9.0-12.0) SEC INR 1.3 H (0.9-1.2) Sodium 131 L (135-145) mmol/L Potassium 4.2 (3.6-5.0) mmol/L Chloride 99 L (101-111) mmol/L Carbon Dioxide 22.0 (21.0-31.0) mmol/L Anion Gap 14.2 BUN 10 (7-18) mg/dL Creatinine 0.7 (0.6-1.3) mg/dL Est Cr Clr Drug Dosing 53.83 mL/min Estimated GFR (MDRD) > 60 BUN/Creatinine Ratio 14.28 Glucose 126 H (74-105) mg/dL Calcium 8.6 (8.4-10.2) mg/dl Total Bilirubin 1.2 H (0.2-1.0) mg/dL AST 33 (10-42) IU/L ALT 19 (10-60) IU/L Alkaline Phosphatase 33 L (42-121) IU/L Troponin I 0.03 H* (0.00-0.02) ng/ml B-Natriuretic Peptide 180 H (0-100) pg/ml Total Protein 6.3 L (6.7-8.2) g/dl Albumin 3.3 (3.2-5.5) g/dl Globulin 3.0 Albumin/Globulin Ratio 1.10 Amylase 39 (28-100) U/L Lipase 30 (22-51) U/L Urine Color (YELLOW) Urine Appearance (CLEAR) Urine pH (5.0-9.0) Ur Specific [place] (1.005-1.030) Urine Protein (NEGATIVE) Urine Glucose (UA) (NEGATIVE) Urine Ketones (NEGATIVE) Urine Occult Blood (NEGATIVE) Urine Nitrite (NEGATIVE) Urine Bilirubin (NEGATIVE) Urine Urobilinogen (0.2-1.0) mg/dL Ur Leukocyte Esterase (NEGATIVE) Urine RBC /HPF Urine WBC (0-5/HPF) /HPF Ur Epithelial Cells /HPF Urine Bacteria (0-FEW/HPF) /HPF Urine Mucus /LPF Digoxin (0-2.5) ng/ml 11/09/16 11/09/16 Range/Units 20:02 20:55 WBC (5.0-10.0) 10^3/uL RBC (4.2-5.4) 10^6/uL Hgb (12.0-16.0) g/dL Hct (37.0-47.0) % MCV (80-100) fL MCH (27.0-34.0) pg MCHC (33.0-35.0) g/dL Plt Count (150-450) 10^3/uL Neut % (Auto) (42.2-75.2) % Lymph % (Auto) (20.5-50.1) % Harris % (Auto) (2-8) % Eos % (Auto) (1.0-3.0) % Baso % (Auto) (0.0-1.0) % PT (9.0-12.0) SEC INR (0.9-1.2) Sodium (135-145) mmol/L Potassium (3.6-5.0) mmol/L Chloride (101-111) mmol/L Carbon Dioxide (21.0-31.0) mmol/L Anion Gap BUN (7-18) mg/dL Creatinine (0.6-1.3) mg/dL Est Cr Clr Drug Dosing mL/min Estimated GFR (MDRD) BUN/Creatinine Ratio Glucose (74-105) mg/dL Calcium (8.4-10.2) mg/dl Total Bilirubin (0.2-1.0) mg/dL AST (10-42) IU/L ALT (10-60) IU/L Alkaline Phosphatase (42-121) IU/L Troponin I (0.00-0.02) ng/ml B-Natriuretic Peptide (0-100) pg/ml Total Protein (6.7-8.2) g/dl Albumin (3.2-5.5) g/dl Globulin Albumin/Globulin Ratio Amylase (28-100) U/L Lipase (22-51) U/L Urine Color Yellow (YELLOW) Urine Appearance Turbid (CLEAR) Urine pH 7.0 (5.0-9.0) Ur Specific [place] 1.015 (1.005-1.030) Urine Protein Negative (NEGATIVE) Urine Glucose (UA) Negative (NEGATIVE) Urine Ketones Trace H (NEGATIVE) Urine Occult Blood Trace-lysed H (NEGATIVE) Urine Nitrite Negative (NEGATIVE) Urine Bilirubin Negative (NEGATIVE) Urine Urobilinogen 2.0 H (0.2-1.0) mg/dL Ur Leukocyte Esterase Negative (NEGATIVE) Urine RBC 0-5 /HPF Urine WBC 0-5 (0-5/HPF) /HPF Ur Epithelial Cells Few /HPF Urine Bacteria Rare (0-FEW/HPF) /HPF Urine Mucus Moderate H /LPF Digoxin 1.1 (0-2.5) ng/ml Meds: Medications Generic Name Dose Route Start Last Admin Trade Name Freq PRN Reason Stop Dose Admin Acetaminophen 650 mg 11/09/16 22:39 Tylenol PO Q4H PRN Pain (Mild 1-3)/fever Acetaminophen 500 mg 11/09/16 22:47 Tylenol Extra Strength PO Q6H PRN Pain Digoxin 125 mcg 11/10/16 12:00 Lanoxin PO WITHLUNCH [facility] Sodium Chloride 1,000 mls @ 75 mls/hr 11/09/16 22:45 Normal Saline IV ASDIRECTED [facility] Metoprolol Succinate 50 mg 11/10/16 09:00 Toprol Xl PO DAILY [facility] Nitroglycerin 0.4 mg 11/09/16 22:47 Nitrostat SL ASDIRECTED PRN Chest Pain Non-Formulary Medication 1,000 mcg 11/10/16 09:00 Cyanocobalamin (Vitamin B-12) [B-12] PO DAILY [facility] Non-Formulary Medication 40 mg 11/10/16 06:00 Pantoprazole Sodium [Protonix] PO ACBREAKFAST [facility] Warfarin Sodium 5 mg 11/10/16 09:00 Coumadin PO DAILY DEBBIE - Re-Assessments/Exams Free Text/Narrative Re-Assessment/Exam: 11/09/16 22:[address] Najera, agreeable to admit for weakness with further evaluation and management. family has discussed likelihood of placement in assisted living or skilled nursing. Departure - Departure Time of Disposition: 22:05 Disposition: Admitted As Inpatient 68 Condition: Fair Clinical Impression: Weakness, Subtherapeutic anticoagulation, Dehydration, mild - Discharge Information - My Orders Last 24 Hours: My Active Orders 11/09/16 19:47 EKG Documentation Completion [RC] URGENT - Assessment/Plan Last 24 Hours: My Active Orders 11/09/16 19:47 EKG Documentation Completion [RC] URGENT
[2016-11-09 20:40] LABS: CHLORIDE,CL 99 mmol/L (101-111); SODIUM,NA 131 mmol/L (135-145)
[2016-11-09] MEDS ORDERED: Nitroglycerin 0.4 MG Tab.SL SL PRN (22:47)
[2016-11-09] MEDS ORDERED: Acetaminophen 500 MG Tab PO PRN (22:47)
--- NOTE | 2016-11-09 23:19 | HP ---
CHIEF COMPLAINT: Confusion and generalized weakness. HISTORY OF PRESENT ILLNESS: The patient is an 86-year-old, lady, who was admitted through the emergency room because the patient has noticed that the patient has been increasingly weak and has worsened over the last 24 hours, and yesterday, the patient was also noted by the daughter to be confused and she has been taking her medications frequently, so home health care has been following closely her medication. The patient also mentioned that she does not have any appetite. The patient denies though any headache, chest pain, shortness of breath, abdominal pain, dysuria, nor any other complaints, and because of the above symptoms of generalized weakness and needing more cares despite home health following the patient, the patient was admitted and for further evaluation and management. PAST MEDICAL HISTORY: Remarkable for atrial fibrillation, coronary artery disease, carotid artery disease, and gastroesophageal reflux. PAST SURGICAL HISTORY: Remarkable for appendectomy, cholecystectomy, colonoscopy, and colostomy. SOCIAL HISTORY: The patient is , lives with her in their own home being followed by home health care. The patient is a non-alcohol drinker and nonsmoker. REVIEW OF SYSTEMS: As in HPI. The rest of the review of systems is negative. HOME MEDICATIONS: 1. Nitroglycerin. 2. Tylenol. 3. Protonix. 4. Digoxin. 5. B12. 6. Diphenhydramine. 7. Potassium chloride. 8. Toprol-XL. 9. Coumadin. ALLERGIES: Trazodone, Lipitor, buprenorphine, Diazepam, Zetia, lorazepam, pentazocine, propoxyphene, rosuvastatin, simvastatin, codeine, morphine, nefazodone, and oxycodone. PHYSICAL EXAMINATION: General: The patient looks weak, but she is alert and oriented, not in any acute distress. Vital Signs: Blood pressure is 98/62, pulse is 82, respiration of 18, temperature of 99.6, and saturation is 96% on room air. HEENT: Skin turgor diminished. Mucous membranes slightly dry. No JVD. No lymphadenopathy. HEART: Irregular. Ventricular response slightly tachycardic. Lungs: Equal bilaterally. No crackles. No wheezing. Abdomen: Soft and nontender. Bowel sounds positive. Extremities: Negative for any significant pedal edema. No calf tenderness. LABORATORY DATA: CBC; WBC 3.5, hemoglobin is 13.1, hematocrit is 39.8, and platelet is 124. Protime is 13.5. INR is 1.3. Comp panel; sodium is 131, chloride of 99, glucose is 126, total bilirubin 1.2, the rest of the panel unremarkable. Troponin is 0.03, which is slightly elevated. BNP is 180. Total protein is 6.3. Urinalysis has trace ketones, otherwise unremarkable. Digoxin level is 1.1. CAT scan of the head is negative for any acute findings. Chest x- ray is unremarkable, and EKG in the emergency room is sinus rhythm. ADMITTING DIAGNOSES: 1. Confusion and generalized weakness. 2. Paroxysmal atrial fibrillation. 3. Gastroesophageal reflux. 4. Mild hyponatremia and hypochloremia. TREATMENT PLAN: The patient is going to be admitted to telemetry floor. We will give her some IV fluids. We will continue with her Coumadin. We will also put her on telemetry. We will have Physical Therapy see the patient for evaluation and management, and we will also have Applications Consultant see the patient for discharge planning and the rest of the management if necessary, and the patient is a full code. [facility] /[id number]
[2016-11-09] MEDS: Sodium Chloride 0.9% 1,000 ML IV SCH (23:50)
[2016-11-10] MEDS ORDERED: Digoxin 500 MCG/2 ML Amp IVPUSH ONE (02:59)
[2016-11-10] MEDS ORDERED: Pantoprazole 40 MG Tab.CR PO SCH (06:00)
[2016-11-10] MEDS ORDERED: Diltiazem 25 MG/5 ML SDV IVPUSH ONE (06:06)
[2016-11-10 06:55] LABS: CHLORIDE,CL 105 mmol/L (101-111); SODIUM,NA 136 mmol/L (135-145)
[2016-11-10] MEDS ORDERED: Metoprolol Succinate 50 MG Tab.ER PO ONE (08:51)
[2016-11-10] MEDS ORDERED: Warfarin 5 MG Tab PO SCH (09:00)
[2016-11-10] MEDS ORDERED: Metoprolol Succinate 50 MG Tab.ER PO SCH (09:00)
--- NOTE | 2016-11-10 09:20 | PN ---
DATE: 11/10/2016 SUBJECTIVE: The patient at midnight and early this morning went into atrial fibrillation with rapid ventricular response. The patient was given initially digoxin 0.25 mg IV x1, and she slowed down and still in AFib and again slowly went back up, and so the patient was given 15 mg of diltiazem IV, and she converted to sinus rhythm. The patient this morning still feels tired and weak, but she denies any headache, chest pain, shortness of breath, abdominal pain, or any other complaints. Telemetry is sinus rhythm. OBJECTIVE: Vital Signs: Blood pressure is 101/42, pulse 70, respirations of 20, and temperature of 97.7. Heart: Regular rate and rhythm. Normal S1 and S2. No gallops. No rubs. Lungs: Equal bilaterally. No crackles. No wheezing. Abdomen: Soft and nontender. Bowel sounds positive. Extremities: Negative for any pedal edema. No calf tenderness. LABORATORY DATA: This morning, INR is 1.4 and Chem-6, carbon dioxide is 20. The rest of the panel unremarkable. Troponin is 0.03. IMPRESSION AND PLAN: 1. Atrial fibrillation with rapid ventricular response. This has resolved. We will continue with her Toprol. 2. Weakness, gait instability, and confusion. I am going to order an MRI of the head with and without contrast. We will continue with her IV fluids and the rest of her management, and we will have Physical Therapy and Occupational Therapy see the patient for evaluation and management. [facility] /[id number]
--- NOTE | 2016-11-10 11:56 | MR ---
CLINICAL HISTORY: 86-year-old female with weakness and confusion reported on recent CT scan head 14 S 2016 to have "age related involutional changes and chronic microvascular ischemic disease". SCAN TECHNIQUE: Unenhanced sagittal T1 and multisequence axial MR images of the head and brain obtain ed with the patient lying supine on the [employer] 1.[employer] magnet [place], [place]. All data archived in the PACS system for storage, reformatting and study. INTERPRETATION: 1. Multiple tiny bright lesions scattered throughout the periventricular white matter (T2 and FLAIR s equences) characteristic of microvascular multi-infarct ischemic disease. 2. No current signs of cerebral edema or acute intracerebral/intraventricular/subarachnoid bleed. 3. Generalized age specific atrophy relatively symmetric with underlying mirror-image normal ventricu lar system. 4. No supratentorial or posterior fossa mass lesion. 5. No abnormal extracerebral/intracranial epidural or subdural hematoma. 6. Normal cerebellum and brainstem. 7. Paranasal and left mastoid sinuses clear (edema nasal turbinate on the right). Subtle inflammatory changes right mastoid. CONCLUSION: Microvascular multi-infarct ischemic disease. Atrophy. No intracranial mass, hydrocephalu s or bleed.
[2016-11-10] MEDS: Sodium Chloride 0.9% 1,000 ML IV SCH (14:37)
[2016-11-10] MEDS ORDERED: Warfarin 5 MG Tab PO ONE ×2 (16:00→18:30)
[2016-11-10] MEDS: CYANOCOBALAMIN 1000 MCG PO SCH (18:24)
[2016-11-10] MEDS ORDERED: Pantoprazole 40 MG Tab.CR PO ONE (18:30)
[2016-11-10] MEDS: Digoxin 125 MCG Tab PO SCH (20:21)
[2016-11-11] MEDS: Sodium Chloride 0.9% 1,000 ML IV SCH (03:04)
[2016-11-11] MEDS ORDERED: Diltiazem 25 MG/5 ML SDV IVPUSH ONE (05:04)
[2016-11-11] MEDS: CYANOCOBALAMIN 1000 MCG PO SCH (08:38)
[2016-11-11] MEDS: Metoprolol Succinate 50 MG Tab.ER PO SCH (08:38)
[2016-11-11] MEDS ORDERED: Sodium Chloride 0.9% 10 ML Syringe FLUSH PRN (09:00)
--- NOTE | 2016-11-11 09:41 | PN ---
DATE: 11/11/2016 SUBJECTIVE: The patient again this morning about 5 o'clock in the morning went into atrial fibrillation with rapid ventricular response and patient last given 15 mg of IV diltiazem and patient converted back to sinus rhythm and the patient this morning is feeling a little bit better. She has more appetite, but overall still not very good with ambulation and still a little bit weak. She denies though any chest pain, shortness of breath, abdominal pain, nausea, or vomiting. LABORATORY DATA: Lab workup this morning; INR is 1.6. OBJECTIVE: Vital Signs: Blood pressure is 101/31, pulse of 64, respiration of 20, temperature of 97.6. Heart: Regular rate and rhythm. Normal S1 and S2. No gallops. No rubs. Lungs: Equal bilaterally. No crackles. No wheezing. Abdomen: Soft and nontender. Bowel sounds are positive. Extremities: Negative for any pedal edema. No calf tenderness. MEDICATIONS: Reviewed. PLAN: We will increase her Toprol-XL to 75 mg daily and we will continue with the rest of her management and she will be getting 5 mg of Coumadin today and INR will be rechecked tomorrow. We will also saline lock IV fluids. [facility] /[id number]
[2016-11-11] MEDS: Digoxin 125 MCG Tab PO SCH (13:19)
[2016-11-11] MEDS ORDERED: Warfarin 5 MG Tab PO ONE (14:00)
[2016-11-11] MEDS: Magnesium Hydroxide 400 MG/5 ML Susp 30 ML Cup PO PRN (18:26)
[2016-11-12] MEDS: Metoprolol Succinate 50 MG Tab.ER PO SCH (09:26)
[2016-11-12] MEDS: CYANOCOBALAMIN 1000 MCG PO SCH (09:27)
[2016-11-12] MEDS: Magnesium Hydroxide 400 MG/5 ML Susp 30 ML Cup PO PRN (09:29)
--- NOTE | 2016-11-12 09:39 | PN ---
DATE: 11/12/2016 SUBJECTIVE: The patient had a good night sleep, and she remained in sinus rhythm, and so far, has not had any problems with AFib with rapid ventricular response. The patient is slowly regaining her strength, and appetite has been good. She denies any chest pain, shortness of breath, headache, abdominal pain, or any other complaints. OBJECTIVE: Vital Signs: Blood pressure is 128/51, pulse of 63, respirations 20, and temperature of 97.1. Heart: Regular rate and rhythm. Normal S1 and S2. No gallops. No rubs. Lungs: Equal bilaterally. No crackles. No wheezing. Abdomen: Soft and nontender. Bowel sounds positive. Extremities: Negative for any significant pedal edema. No calf tenderness. LABORATORY DATA: Lab workup this morning; INR is 2.9. MEDICATIONS: Reviewed. PLAN: We will cut down the dose of her Coumadin to 3 mg a day, and we will continue the rest of her management and also talk with her daughter, and she was asking about the discharge planning, and we will have the discharge planners discuss it tomorrow whether the patient is going to the fpc or swing bed. In the mean time, we will continue with her PT and OT. [facility] /[id number]
[2016-11-12] MEDS: Digoxin 125 MCG Tab PO SCH (12:06)
[2016-11-12] MEDS ORDERED: Warfarin 2 MG Tab PO ONE (14:00)
[2016-11-13] MEDS: Acetaminophen 325 MG Tab PO PRN ×2 (03:21→21:37)
--- NOTE | 2016-11-13 09:41 | EKG ---
11/09/2016 - JOEY CASTANO - EKG is sinus rhythm with a rate of 77. There is short VT interval. [place] is within normal limits. There are nonspecific ST-T wave changes on the inferior leads. EKG otherwise is within normal limits, and there are no signs of acute myocardial injury. [facility] /[id number]
--- NOTE | 2016-11-13 09:53 | PCM.PN ---
- General Info Date of Service: 11/13/16 Admission Dx/Problem (Free Text): Patient was admitted to his weakness and a total fibrillation with RVR Subjective Update: Patient stated that she is still feeling weak and unsteady when she walks. She denies new symptoms. She denies chest pain, shortness breath, nausea, vomiting, abdominal pain, urinary symptoms, any other symptoms or concern. - Patient Data Vitals - Most Recent: Last Vital Signs Temp 36.4 C 11/13/16 07:48 Pulse 52 L 11/13/16 07:48 Resp 20 11/13/16 07:48 BP 109/54 L 11/13/16 07:48 Pulse Ox 98 11/13/16 07:48 Weight - Most Recent: 59.602 kg I&O - Last 24 Hours: Intake & Output 11/12/16 11/13/16 11/13/16 22:59 06:59 14:59 Intake Total 200 Output Total 300 Balance 200 -300 Lab Results Last 24 Hours: Laboratory Results - last 24 hr 11/13/16 Range/Units 06:10 PT 30.9 H (9.0-12.0) SEC INR 3.1 H (0.9-1.2) Med Orders - Current: Current Medications Acetaminophen (Tylenol) 650 mg PO Q4H PRN PRN Reason: Pain (Mild 1-3)/fever Last Admin: 11/13/16 03:21 Dose: 650 mg Acetaminophen (Tylenol Extra Strength) 500 mg PO Q6H PRN PRN Reason: Pain Digoxin (Lanoxin) 125 mcg PO WITHLUNCH [facility] Last Admin: 11/12/16 12:06 Dose: 125 mcg Magnesium Hydroxide (Milk Of Magnesia) 15 ml PO DAILY PRN PRN Reason: Constipation Last Admin: 11/12/16 09:29 Dose: 15 ml Metoprolol Succinate (Toprol Xl) 75 mg PO DAILY [facility] Last Admin: 11/12/16 09:26 Dose: 75 mg Nitroglycerin (Nitrostat) 0.4 mg SL ASDIRECTED PRN PRN Reason: Chest Pain Cyanocobalamin ( Vitamin B-12) 1,000 McgPt's Own Med 0 each PO DAILY [facility] Last Admin: 11/12/16 09:27 Dose: 1 each Sodium Chloride (Saline Flush) 10 ml FLUSH ASDIRECTED PRN PRN Reason: Keep Vein Open Last Admin: 11/12/16 19:55 Dose: 10 ml Warfarin Sodium (Pharmacy To Dose - Warfarin) 1 dose PO ASDIRECTED [facility] Discontinued Medications Digoxin (Lanoxin) 250 mcg IVPUSH ONETIME ONE Stop: 11/10/16 03:00 Last Admin: 11/10/16 03:11 Dose: 250 mcg Diltiazem HCl (Diltiazem) 15 mg IVPUSH ONETIME ONE Stop: 11/10/16 06:07 Last Admin: 11/10/16 06:24 Dose: 15 mg Diltiazem HCl (Diltiazem) 15 mg IVPUSH ONETIME ONE Stop: 11/11/16 05:05 Last Admin: 11/11/16 05:28 Dose: 15 mg Sodium Chloride (Normal Saline) 1,000 mls @ 75 mls/hr IV ASDIRECTED [facility] Last Admin: 11/11/16 03:04 Dose: 75 mls/hr Metoprolol Succinate (Toprol Xl) 50 mg PO DAILY [facility] Last Admin: 11/10/16 18:29 Dose: Not Given Metoprolol Succinate (Toprol Xl) 50 mg PO ONETIME ONE Stop: 11/10/16 08:52 Last Admin: 11/10/16 09:03 Dose: 50 mg Pantoprazole Sodium (Protonix) 40 mg PO ACBREAKFAST [facility] Last Admin: 11/10/16 18:23 Dose: 40 mg Pantoprazole Sodium (Protonix) 40 mg PO ONETIME ONE Stop: 11/10/16 18:31 Last Admin: 11/10/16 19:23 Dose: Not Given Warfarin Sodium (Coumadin) 5 mg PO DAILY [facility] Last Admin: 11/10/16 18:28 Dose: Not Given Warfarin Sodium (Coumadin) 5 mg PO ONETIME ONE Stop: 11/10/16 16:01 Last Admin: 11/10/16 18:30 Dose: Not Given Warfarin Sodium (Coumadin) 5 mg PO ONETIME ONE Stop: 11/10/16 18:31 Last Admin: 11/10/16 18:37 Dose: 5 mg Warfarin Sodium (Pharmacy To Dose - Warfarin) 1 dose .XX DAILY@1400 [facility] Warfarin Sodium (Coumadin) 5 mg PO ONETIME ONE Stop: 11/11/16 14:01 Last Admin: 11/11/16 13:21 Dose: 5 mg Warfarin Sodium (Pharmacy To Dose - Warfarin) 1 dose .XX ASDIRECTED [facility] Warfarin Sodium (Coumadin) 2 mg PO ONETIME ONE Stop: 11/12/16 14:01 Last Admin: 11/12/16 15:14 Dose: 2 mg - Exam General: Alert, Oriented, Cooperative, No Acute Distress, Other (She appears to be weak and somewhat) HEENT: Pupils Equal, Pupils Reactive, EOMI, Mucous Membr. Moist/[place] Neck: Supple, Trachea Midline, No JVD Lungs: Clear to Auscultation, Normal Respiratory Effort Cardiovascular: Irregular Rhythm GI/Abdominal Exam: Normal Bowel Sounds, Soft, Non-Tender, No Organomegaly, No Distention, No Abnormal Bruit, No Mass Extremities: Normal Inspection, Normal Range of Motion, Non-Tender, No Pedal Edema, Normal Capillary Refill Skin: Warm, Dry, Intact Neurological: No New Focal Deficit Psy/Mental Status: Alert - Problem List Review Problem List Initiated/Reviewed/Updated: Yes - Plan Plan:: Assessment and plan #Acute encephalopathy Improved #Generalized weakness UA is unremarkable Multiple comorbidities -Check TSH and magnesium I will recheck her CBC, BMP Continue PT and OT #Atrial fibrillation with RVR Improved She was given IV digoxin and diltiazem and her Toprol increased to 75 mg daily Continue warfarin #Chronic anticoagulation -INR is 3.1 Continue dosing by pharmacy She stated that she doesn't feel safe at home and she cannot take care of herself and her sick . She is willing to go to detention. We will look for detention placement at this time as she does not safe enough to go home.
[2016-11-13] MEDS: CYANOCOBALAMIN 1000 MCG PO SCH (10:28)
[2016-11-13] MEDS: Metoprolol Succinate 50 MG Tab.ER PO SCH (10:41)
[2016-11-13] MEDS: Digoxin 125 MCG Tab PO SCH (13:34)
[2016-11-14 07:11] LABS: CHLORIDE,CL 107 mmol/L (101-111); SODIUM,NA 142 mmol/L (135-145)
[2016-11-14] MEDS: CYANOCOBALAMIN 1000 MCG PO SCH (09:47)
[2016-11-14] MEDS: Metoprolol Succinate 50 MG Tab.ER PO SCH (09:47)
[2016-11-14] MEDS: Digoxin 125 MCG Tab PO SCH (13:04)
[2016-11-14] MEDS ORDERED: Meclizine 12.5 MG Tab PO PRN (13:22)
--- NOTE | 2016-11-14 13:44 | PCM.PN ---
- General Info Date of Service: 11/14/16 Admission Dx/Problem (Free Text): Patient was admitted to his weakness and a total fibrillation with RVR Subjective Update: Patient stated that she is still feeling better. She denies new symptoms. She reported chronic dizziness. She denies chest pain, shortness breath, nausea, vomiting, abdominal pain, urinary symptoms, any other symptoms or concern. - Patient Data Vitals - Most Recent: Last Vital Signs Temp 36.9 C 11/14/16 10:59 Pulse 64 11/14/16 13:04 Resp 20 11/14/16 10:59 BP 129/55 L 11/14/16 10:59 Pulse Ox 99 11/14/16 10:59 Weight - Most Recent: 59.602 kg I&O - Last 24 Hours: Intake & Output 11/13/16 11/14/16 11/14/16 22:59 06:59 14:59 Intake Total 350 100 Output Total 300 Balance 350 -300 100 Lab Results Last 24 Hours: Laboratory Results - last 24 hr 11/14/16 11/14/16 11/14/16 Range/Units 06:25 06:25 06:25 WBC 3.1 L (5.0-10.0) 10^3/uL RBC 3.89 L (4.2-5.4) 10^6/uL Hgb 11.7 L (12.0-16.0) g/dL Hct 36.4 L (37.0-47.0) % MCV 93.6 (80-100) fL MCH 30.1 (27.0-34.0) pg MCHC 32.1 L (33.0-35.0) g/dL Plt Count 156 (150-450) 10^3/uL Neut % (Auto) 67.6 (42.2-75.2) % Lymph % (Auto) 15.4 L (20.5-50.1) % Louisa % (Auto) 13.1 H (2-8) % Eos % (Auto) 3.6 H (1.0-3.0) % Baso % (Auto) 0.3 (0.0-1.0) % PT 39.3 H (9.0-12.0) SEC INR 3.9 H (0.9-1.2) Sodium 142 (135-145) mmol/L Potassium 3.6 (3.6-5.0) mmol/L Chloride 107 (101-111) mmol/L Carbon Dioxide 25.0 (21.0-31.0) mmol/L Anion Gap 13.6 BUN 7 (7-18) mg/dL Creatinine 0.5 L (0.6-1.3) mg/dL Est Cr Clr Drug Dosing 75.37 mL/min Estimated GFR (MDRD) > 60 Glucose 88 (74-105) mg/dL Calcium 8.7 (8.4-10.2) mg/dl Magnesium 2.0 (1.8-2.5) mg/dL TSH, Ultra Sensitive (0.45-5.33) uIu/mL 11/14/16 Range/Units 06:25 WBC (5.0-10.0) 10^3/uL RBC (4.2-5.4) 10^6/uL Hgb (12.0-16.0) g/dL Hct (37.0-47.0) % MCV (80-100) fL MCH (27.0-34.0) pg MCHC (33.0-35.0) g/dL Plt Count (150-450) 10^3/uL Neut % (Auto) (42.2-75.2) % Lymph % (Auto) (20.5-50.1) % Louisa % (Auto) (2-8) % Eos % (Auto) (1.0-3.0) % Baso % (Auto) (0.0-1.0) % PT (9.0-12.0) SEC INR (0.9-1.2) Sodium (135-145) mmol/L Potassium (3.6-5.0) mmol/L Chloride (101-111) mmol/L Carbon Dioxide (21.0-31.0) mmol/L Anion Gap BUN (7-18) mg/dL Creatinine (0.6-1.3) mg/dL Est Cr Clr Drug Dosing mL/min Estimated GFR (MDRD) Glucose (74-105) mg/dL Calcium (8.4-10.2) mg/dl Magnesium (1.8-2.5) mg/dL TSH, Ultra Sensitive 2.54 (0.45-5.33) uIu/mL Med Orders - Current: Current Medications Acetaminophen (Tylenol) 650 mg PO Q4H PRN PRN Reason: Pain (Mild 1-3)/fever Last Admin: 11/13/16 21:37 Dose: 650 mg Acetaminophen (Tylenol Extra Strength) 500 mg PO Q6H PRN PRN Reason: Pain Digoxin (Lanoxin) 125 mcg PO WITHLUNCH [facility] Last Admin: 11/14/16 13:04 Dose: 125 mcg Magnesium Hydroxide (Milk Of Magnesia) 15 ml PO DAILY PRN PRN Reason: Constipation Last Admin: 11/12/16 09:29 Dose: 15 ml Meclizine HCl (Antivert) 12.5 mg PO Q8H PRN PRN Reason: Dizziness Metoprolol Succinate (Toprol Xl) 75 mg PO DAILY [facility] Last Admin: 11/14/16 09:47 Dose: 75 mg Nitroglycerin (Nitrostat) 0.4 mg SL ASDIRECTED PRN PRN Reason: Chest Pain No Warfarin (Today ) 0 each PO ONETIME ONE Stop: 11/14/16 14:01 Pantoprazole Sodium (Protonix) 40 mg PO ACBREAKFAST [facility] Cyanocobalamin ( Vitamin B-12) 1,000 McgPt's Own Med 0 each PO DAILY [facility] Last Admin: 11/14/16 09:47 Dose: 1 each Sodium Chloride (Saline Flush) 10 ml FLUSH ASDIRECTED PRN PRN Reason: Keep Vein Open Last Admin: 11/12/16 19:55 Dose: 10 ml Warfarin Sodium (Pharmacy To Dose - Warfarin) 1 dose PO ASDIRECTED [facility] Discontinued Medications Digoxin (Lanoxin) 250 mcg IVPUSH ONETIME ONE Stop: 11/10/16 03:00 Last Admin: 11/10/16 03:11 Dose: 250 mcg Diltiazem HCl (Diltiazem) 15 mg IVPUSH ONETIME ONE Stop: 11/10/16 06:07 Last Admin: 11/10/16 06:24 Dose: 15 mg Diltiazem HCl (Diltiazem) 15 mg IVPUSH ONETIME ONE Stop: 11/11/16 05:05 Last Admin: 11/11/16 05:28 Dose: 15 mg Sodium Chloride (Normal Saline) 1,000 mls @ 75 mls/hr IV ASDIRECTED [facility] Last Admin: 11/11/16 03:04 Dose: 75 mls/hr Metoprolol Succinate (Toprol Xl) 50 mg PO DAILY [facility] Last Admin: 11/10/16 18:29 Dose: Not Given Metoprolol Succinate (Toprol Xl) 50 mg PO ONETIME ONE Stop: 11/10/16 08:52 Last Admin: 11/10/16 09:03 Dose: 50 mg Pantoprazole Sodium (Protonix) 40 mg PO ACBREAKFAST [facility] Last Admin: 11/10/16 18:23 Dose: 40 mg Pantoprazole Sodium (Protonix) 40 mg PO ONETIME ONE Stop: 11/10/16 18:31 Last Admin: 11/10/16 19:23 Dose: Not Given Warfarin Sodium (Coumadin) 5 mg PO DAILY [facility] Last Admin: 11/10/16 18:28 Dose: Not Given Warfarin Sodium (Coumadin) 5 mg PO ONETIME ONE Stop: 11/10/16 16:01 Last Admin: 11/10/16 18:30 Dose: Not Given Warfarin Sodium (Coumadin) 5 mg PO ONETIME ONE Stop: 11/10/16 18:31 Last Admin: 11/10/16 18:37 Dose: 5 mg Warfarin Sodium (Pharmacy To Dose - Warfarin) 1 dose .XX DAILY@1400 [facility] Warfarin Sodium (Coumadin) 5 mg PO ONETIME ONE Stop: 11/11/16 14:01 Last Admin: 11/11/16 13:21 Dose: 5 mg Warfarin Sodium (Pharmacy To Dose - Warfarin) 1 dose .XX ASDIRECTED [facility] Warfarin Sodium (Coumadin) 2 mg PO ONETIME ONE Stop: 11/12/16 14:01 Last Admin: 11/12/16 15:14 Dose: 2 mg Warfarin Sodium (Coumadin) 1 mg PO ONETIME ONE Stop: 11/13/16 14:01 Last Admin: 11/13/16 13:46 Dose: 1 mg - Exam General: Alert, Oriented, Cooperative, No Acute Distress. No: Mild Distress, Moderate Distress, Severe Distress, Sedated, Lethargic, Obtunded HEENT: Pupils Equal, Pupils Reactive, EOMI, Mucous Membr. Moist/[place] Neck: Supple, Trachea Midline, No JVD Lungs: Clear to Auscultation, Normal Respiratory Effort Cardiovascular: Irregular Rhythm GI/Abdominal Exam: Normal Bowel Sounds, Soft, Non-Tender, No Organomegaly, No Distention, No Abnormal Bruit, No Mass, Pelvis Stable Back Exam: Normal Inspection Extremities: Normal Inspection, Normal Range of Motion, Non-Tender, No Pedal Edema, Normal Capillary Refill Skin: Warm, Dry, Intact Neurological: No New Focal Deficit Psy/Mental Status: Alert, Normal Affect, Normal Mood - Problem List & Annotations (1) Supratherapeutic INR SNOMED Code(s): 698794036, 467629441 Code(s): R79.1 - ABNORMAL COAGULATION PROFILE Status: Acute Current Visit : Yes (2) Dehydration, mild SNOMED Code(s): 7036813042767 Code(s): E86.0 - DEHYDRATION Status: Resolved Current Visit: Yes (3) Subtherapeutic anticoagulation SNOMED Code(s): 45821563 Code(s): Z51.81 - ENCOUNTER FOR THERAPEUTIC DRUG LEVEL MONITORING; Z79.01 - [facility] (CURRENT) USE OF ANTICOAGULANTS Status: Resolved Current Visit: Yes (4) Weakness SNOMED Code(s): 18641533 Code(s): R53.1 - WEAKNESS Status: Acute Current Visit: Yes (5) Anemia SNOMED Code(s): 375816923 Code(s): D64.9 - ANEMIA, UNSPECIFIED Status: Chronic Current Visit: No Onset Date: 12/14/14 (6) Atrial fibrillation SNOMED Code(s): 10429091 Code(s): I48.91 - UNSPECIFIED ATRIAL FIBRILLATION Status: Chronic Current Visit: No Qualifiers: Atrial fibrillation type: paroxysmal Qualified Code(s): I48.0 - Paroxysmal atrial fibrillation (7) Dizziness SNOMED Code(s): 943927774, 952849601 Code(s): R42 - DIZZINESS AND GIDDINESS Status: Chronic Current Visit: No - Problem List Review Problem List Initiated/Reviewed/Updated: Yes - My Orders Last 24 Hours: My Active Orders 11/14/16 13:22 Meclizine [Antivert] 12.5 mg PO Q8H PRN 11/14/16 13:30 Pantoprazole [ProTONIX] 40 mg PO ACBREAKFAST 11/14/16 13:35 Communication Order [RC] ROUTINE 11/14/16 14:00 Non-Formulary Medication [NF Drug] 0 each PO ONETIME ONE 11/15/16 09:00 Ready for Discharge [RC] PER UNIT ROUTINE - Plan Plan:: Assessment and plan #Acute encephalopathy Resolved #Generalized weakness UA is unremarkable Multiple comorbidities Normal TSH and magnesium Continue PT and OT #Atrial fibrillation with RVR Improved She was given IV digoxin and diltiazem and her Toprol increased to 75 mg daily Continue warfarin #Chronic anticoagulation -INR is 3.9 Continue dosing by pharmacy Low WBC Follow-up with primary care provider to recheck WBC Chronic dizziness Try meclizine Follow-up with primary care provider Patient is going to have cataract surgery tomorrow and after that she will be going to snf.
[2016-11-14] MEDS: Pantoprazole 40 MG Tab.CR PO SCH (15:34)
[2016-11-14] MEDS: Acetaminophen 325 MG Tab PO PRN (20:58)
[2016-11-15] MEDS: Metoprolol Succinate 50 MG Tab.ER PO SCH ×2 (06:22→08:25)
[2016-11-15] MEDS: Pantoprazole 40 MG Tab.CR PO SCH (07:04)
[2016-11-15 08:24] VITALS: BP 138/40
[2016-11-15] MEDS: CYANOCOBALAMIN 1000 MCG PO SCH (08:25)
--- NOTE | 2016-11-15 13:49 | PCM.DCSUM1 ---
Discharge Summary - Hospital Course Free Text/Narrative:: 86-year-old female with past medical history of atrial fibrillation, coronary artery disease, carotid artery disease, GERD presented to the emergency room for increasing weakness and having confusion for the day be for admission. Patient denied shortness breaths, chest pain, nausea, vomiting, abdominal pain, dysuria, any other symptoms or complaint. Her laboratory on admission data reported WBC 3.5. Hemoglobin 13.1. Placed 124. INR 1.3. Sodium 131. Glucose 126. Troponin 0.03. BNP 180. Urinalysis unremarkable. Digoxin level I.1. CT head was negative for acute findings. Chest x-ray was unremarkable. EKG reported sinus rhythm. Patient was admitted for confusion and generalized weakness and paroxysmal atrial fibrillation. She had subtherapeutic INR. She was given IV digoxin and diltiazem in the emergency room. She continued on Toprol XL. Her INR increased to 3.9. Other workup revealed normal TSH and magnesium. She was started on meclizine for chronic dizziness. Her WBC were below normal. She was advised to follow up on that with primary care provider mentioned to her high INR and adjust Coumadin as needed. Clinically patient was feeling better and she wants to go to [place] [facility]. The last 24 hours she denies any symptoms. She was directed to check her INR and WBC on upcoming Sunday and report results to primary care provider. - Discharge Data Discharge Date: 11/15/16 Discharge Disposition: DC/Tfer to [facility] 03 Condition: Fair - Discharge Diagnosis/Problem(s) (1) Supratherapeutic INR SNOMED Code(s): 535862517, 618740848 ICD Code: R79.1 - ABNORMAL COAGULATION PROFILE Status: Acute (2) Dehydration, mild SNOMED Code(s): 8398040820933 ICD Code: E86.0 - DEHYDRATION Status: Resolved (3) Subtherapeutic anticoagulation SNOMED Code(s): 08166102 ICD Code: Z51.81 - ENCOUNTER FOR THERAPEUTIC DRUG LEVEL MONITORING; Z79.01 - [facility] (CURRENT) USE OF ANTICOAGULANTS Status: Resolved (4) Weakness SNOMED Code(s): 34916647 ICD Code: R53.1 - WEAKNESS Status: Acute (5) Anemia SNOMED Code(s): 361068858 ICD Code: D64.9 - ANEMIA, UNSPECIFIED Status: Chronic Onset Date: (6) Atrial fibrillation SNOMED Code(s): 18970128 ICD Code: I48.91 - UNSPECIFIED ATRIAL FIBRILLATION Status: Chronic Qualifiers: Atrial fibrillation type: paroxysmal Qualified Code(s): I48.0 - Paroxysmal atrial fibrillation (7) Dizziness SNOMED Code(s): 625319006, 270026056 ICD Code: R42 - DIZZINESS AND GIDDINESS Status: Chronic - Patient Summary/Data Consults: Consultations 11/10/16 08:35 Consult to Physical Therapy [PT Evaluation and Treatment] [CONS] Routine 11/10/16 08:37 Consult to Occupational Therapy [OT Evaluation and Treatment] [CONS] Routine - Patient Instructions Diet: Heart Healthy Diet Activity: As Tolerated Showering/Bathing: June Shower Notify Provider of: Fever, Increased Pain, Swelling and Redness, Drainage, Nausea and/or Vomiting - Discharge Plan Prescriptions/Med Rec: Meclizine [Antivert] 12.5 mg PO Q8H PRN #30 tablet PRN Reason: Dizziness Pantoprazole [ProTONIX] 40 mg PO ACBREAKFAST 30 Days tab.cr Home Medications: Home Meds Nitroglycerin [Nitrostat] 0.4 mg PO ASDIRECTED PRN 10/31/13 [History] Cyanocobalamin (Vitamin B-12) [B-12] 1,000 mcg PO DAILY 09/12/16 [History] Acetaminophen [Tylenol] 650 mg PO Q4H PRN tablet 11/14/16 [Rx] Digoxin 1 tab PO DAILY 11/14/16 [History] Meclizine [Antivert] 12.5 mg PO Q8H PRN #30 tablet 11/14/16 [Rx] Metoprolol Succinate [Toprol XL] 75 mg PO DAILY 11/14/16 [History] Pantoprazole [ProTONIX] 40 mg PO ACBREAKFAST 30 Days tab.cr 11/14/16 [Rx] Warfarin Sodium 1 mg PO ASDIRECTED 11/15/16 [History] - General Info Date of Service: 11/15/16 Admission Dx/Problem (Free Text: Patient was admitted to his weakness and a total fibrillation with RVR Subjective Update: Patient stated that she is still feeling better. She denies new symptoms. She reported chronic dizziness. She denies chest pain, shortness breath, nausea, vomiting, abdominal pain, urinary symptoms, any other symptoms or concern. - Patient Data Vitals - Most Recent: Last Vital Signs Temp 36.3 C 11/15/16 08:24 Pulse 61 11/15/16 08:24 Resp 20 11/15/16 08:24 BP 138/40 L 11/15/16 08:24 Pulse Ox 99 11/15/16 08:24 Weight - Most Recent: 59.602 kg I&O - Last 24 hours: Intake & Output 11/14/16 11/15/16 11/15/16 22:59 06:59 14:59 Intake Total 200 Output Total 200 Balance 0 Med Orders - Current: Current Medications Discontinued Medications Acetaminophen (Tylenol) 650 mg PO Q4H PRN PRN Reason: Pain (Mild 1-3)/fever Last Admin: 11/14/16 20:58 Dose: 650 mg Acetaminophen (Tylenol Extra Strength) 500 mg PO Q6H PRN PRN Reason: Pain Digoxin (Lanoxin) 125 mcg PO WITHLUNCH [facility] Last Admin: 11/14/16 13:04 Dose: 125 mcg Digoxin (Lanoxin) 250 mcg IVPUSH ONETIME ONE Stop: 11/10/16 03:00 Last Admin: 11/10/16 03:11 Dose: 250 mcg Diltiazem HCl (Diltiazem) 15 mg IVPUSH ONETIME ONE Stop: 11/10/16 06:07 Last Admin: 11/10/16 06:24 Dose: 15 mg Diltiazem HCl (Diltiazem) 15 mg IVPUSH ONETIME ONE Stop: 11/11/16 05:05 Last Admin: 11/11/16 05:28 Dose: 15 mg Sodium Chloride (Normal Saline) 1,000 mls @ 75 mls/hr IV ASDIRECTED [facility] Last Admin: 11/11/16 03:04 Dose: 75 mls/hr Magnesium Hydroxide (Milk Of Magnesia) 15 ml PO DAILY PRN PRN Reason: Constipation Last Admin: 11/12/16 09:29 Dose: 15 ml Meclizine HCl (Antivert) 12.5 mg PO Q8H PRN PRN Reason: Dizziness Metoprolol Succinate (Toprol Xl) 50 mg PO DAILY [facility] Last Admin: 11/10/16 18:29 Dose: Not Given Metoprolol Succinate (Toprol Xl) 50 mg PO ONETIME ONE Stop: 11/10/16 08:52 Last Admin: 11/10/16 09:03 Dose: 50 mg Metoprolol Succinate (Toprol Xl) 75 mg PO DAILY [facility] Last Admin: 11/15/16 08:25 Dose: Not Given Nitroglycerin (Nitrostat) 0.4 mg SL ASDIRECTED PRN PRN Reason: Chest Pain No Warfarin (Today ) 0 each PO ONETIME ONE Stop: 11/14/16 14:01 Last Admin: 11/14/16 14:10 Dose: Not Given Pantoprazole Sodium (Protonix) 40 mg PO ACBREAKFAST [facility] Last Admin: 11/10/16 18:23 Dose: 40 mg Pantoprazole Sodium (Protonix) 40 mg PO ONETIME ONE Stop: 11/10/16 18:31 Last Admin: 11/10/16 19:23 Dose: Not Given Pantoprazole Sodium (Protonix) 40 mg PO ACBREAKFAST [facility] Last Admin: 11/15/16 07:04 Dose: Not Given Cyanocobalamin ( Vitamin B-12) 1,000 McgPt's Own Med 0 each PO DAILY [facility] Last Admin: 11/15/16 08:25 Dose: Not Given Sodium Chloride (Saline Flush) 10 ml FLUSH ASDIRECTED PRN PRN Reason: Keep Vein Open Last Admin: 11/12/16 19:55 Dose: 10 ml Warfarin Sodium (Coumadin) 5 mg PO DAILY [facility] Last Admin: 11/10/16 18:28 Dose: Not Given Warfarin Sodium (Coumadin) 5 mg PO ONETIME ONE Stop: 11/10/16 16:01 Last Admin: 11/10/16 18:30 Dose: Not Given Warfarin Sodium (Pharmacy To Dose - Warfarin) 1 dose PO ASDIRECTED [facility] Warfarin Sodium (Coumadin) 5 mg PO ONETIME ONE Stop: 11/10/16 18:31 Last Admin: 11/10/16 18:37 Dose: 5 mg Warfarin Sodium (Pharmacy To Dose - Warfarin) 1 dose .XX DAILY@1400 [facility] Warfarin Sodium (Coumadin) 5 mg PO ONETIME ONE Stop: 11/11/16 14:01 Last Admin: 11/11/16 13:21 Dose: 5 mg Warfarin Sodium (Pharmacy To Dose - Warfarin) 1 dose .XX ASDIRECTED [facility] Warfarin Sodium (Coumadin) 2 mg PO ONETIME ONE Stop: 11/12/16 14:01 Last Admin: 11/12/16 15:14 Dose: 2 mg Warfarin Sodium (Coumadin) 1 mg PO ONETIME ONE Stop: 11/13/16 14:01 Last Admin: 11/13/16 13:46 Dose: 1 mg - Exam General: Reports: Alert, Oriented, Cooperative, No Acute Distress, Mild Distress , Moderate Distress. Denies: Severe Distress, Sedated, Lethargic, Obtunded HEENT: Reports: Pupils Equal, Pupils Reactive, EOMI, Mucous Membr. Moist/[place] Neck: Reports: Supple, Trachea Midline, No JVD Lungs: Reports: Clear to Auscultation, Normal Respiratory Effort. Denies: Decreased Breath Sounds, Crackles, Rales, Rhonchi, Rub, Stridor, Wheezing Cardiovascular: Reports: Regular Rate, Regular Rhythm, No Murmurs GI/Abdominal Exam: Normal Bowel Sounds, Soft, Non-Tender, No Organomegaly, No Distention, No Abnormal Bruit, No Mass (Female) Exam: Deferred Rectal (Female) Exam: Deferred Back Exam: Reports: Normal Inspection, Full Range of Motion Extremities: Normal Inspection, Normal Range of Motion, Non-Tender, No Pedal Edema, Normal Capillary Refill Skin: Reports: Warm, Dry, Intact Neurological: Reports: No New Focal Deficit Psy/Mental Status: Reports: Alert, Normal Affect, Normal Mood *Q Meaningful Use (DIS) - VTE *Q VTE Criteria *Q: - Stroke *Q Stroke Criteria *Q: - AMI *Q AMI Criteria *Q:
== END 2016-11-15 09:33 | DRG 947 ==
LOC: DL.ED 19:20 → UNDOADMIN 22:15 → DL.MS 22:15
PROVIDERS: ADMIT Internal Medicine; ATTEND Internal Medicine
DX: R53.1 Weakness (principal); G93.40 Encephalopathy, unspecified; R79.1 Abnormal coagulation profile; E86.0 Dehydration; Z51.81 Encounter for therapeutic drug level monitoring; E78.00 Pure hypercholesterolemia, unspecified; K22.70 Barrett's esophagus without dysplasia; M35.3 Polymyalgia rheumatica; F41.8 Other specified anxiety disorders; Z79.01 Long term (current) use of anticoagulants; Z79.899 Other long term (current) drug therapy; D64.9 Anemia, unspecified; I48.91 Unspecified atrial fibrillation; I25.10 Atherosclerotic heart disease of native coronary artery without angina pectoris; Z95.5 Presence of coronary angioplasty implant and graft; Z88.8 Allergy status to other drugs, medicaments and biological substances; K21.9 Gastro-esophageal reflux disease without esophagitis; R41.0 Disorientation, unspecified; R42 Dizziness and giddiness; E87.8 Other disorders of electrolyte and fluid balance, not elsewhere classified
CPT/HCPCS: 36415; 70450; 70551; 71010; 80048; 80053; 80162; 81001; 82150; 83690; 83735; 83880; 84443; 84484; 85025; 85610; 93005; 93010; 97161-GP; 97166-GO; 97530-GO; 97535-GO; 99284; 99285; A9270-GY; J1160; J3490; J7030; J7050

== ENCOUNTER 2016-11-15 10:23 | Day surgery (SDC) | payer MEDICARE, BC ==
[~2016-11-15 10:23] MED LIST: Acetaminophen 325 MG Tab PO PRN; Cataract Ophth Solution EYELF ONE; Moxifloxacin 0.5% Ophth Soln 3 ML Bottle EYELF ONE; Ondansetron 4 MG/2 ML SDV IVPUSH PRN; Phenylephrine 10% Ophth Soln 5 ML Bot EYELF ONE; Phenylephrine 10% Ophth Soln 5 ML Bot EYELF PRN; Povidone-Iodine 5% Sterile Ophth Soln 30 ML Bottle EYELF ONE; Proparacaine 0.5% Ophth Soln 15 ML Bottle EYELF ONE; Sodium Chloride 0.9% 10 ML Syringe FLUSH PRN; Timolol Maleate 0.5% Ophth Soln 5 ML Bottle EYELF ONE
[2016-11-15] MEDS ORDERED: Midazolam 1 MG/ML 2 ML SDV IV ONE (10:24)
[2016-11-15] MEDS ORDERED: Dexamethasone 4 MG/ML SDV IV ONE (10:24)
[2016-11-15] MEDS ORDERED: Dexamethasone 4 MG/ML SDV ONE (10:56)
[2016-11-15] MEDS ORDERED: Midazolam 1 MG/ML 2 ML SDV ONE (10:56)
[2016-11-15] MEDS ORDERED: Vancomycin 500 MG SDV EYELF ONE (11:19)
[2016-11-15] MEDS ORDERED: Lidocaine 1% 30 ML SDV ONE (11:19)
[2016-11-15] MEDS ORDERED: Balanced Salt Solution Ophth Irrig 500 ML Bottle IOCULAR ONE (11:19)
[2016-11-15] MEDS ORDERED: Apraclonidine 0.5% Ophth Soln 5 ML Bot EYELF ONE (11:20)
[2016-11-15] MEDS ORDERED: Chondroitin Sulfate/Hyaluronate Sodium Ophth Inj 0.75 ML Syringe EYELF ONE (11:20)
[2016-11-15] MEDS ORDERED: Tetracaine HCl/PF 0.5% 4 ML Bottle EYELF ONE (11:20)
[2016-11-15] MEDS ORDERED: Povidone-Iodine 5% Sterile Ophth Soln 30 ML Bottle EYELF ONE (11:20)
[2016-11-15] MEDS ORDERED: Diclofenac Sodium 0.1% Ophth Soln 5 ML Bottle EYELF ONE (11:20)
[2016-11-15] MEDS ORDERED: Dexamethasone/Neomycin/Polymyxin B Ophth Oint 3.5 GM Tube EYELF ONE (11:21)
[2016-11-15 12:41] VITALS: BP 139/59
--- NOTE | 2016-11-15 15:00 | OR ---
DATE: 11/15/2016 PREOPERATIVE DIAGNOSIS: Cataract, left eye. POSTOPERATIVE DIAGNOSIS: Cataract, left eye. PROCEDURE: Extracapsular cataract extraction with intraocular lens implant, left eye. ANESTHESIA: Topical/local MAC. COMPLICATIONS: None. INDICATION: Ms. Hinson was seen in the clinic with complaints of difficulty driving, difficulty seeing images, and she is unhappy with her vision. Examination revealed mixed cataract. I explained options. I offered cataract surgery, and I explained risks including the potential for vision loss. She is symptomatic and requested surgery to improve vision and function. She requested a monofocal implant. OPERATIVE DESCRIPTION: After informed consent was obtained and the risks, benefits, and alternatives were explained, the patient was brought to the operative suite and topical anesthesia was administered. The patient was then prepped and draped in the sterile fashion and attention was placed on the left eye. A sterile lid speculum was placed into the left eye to allow operative exposure. A full-thickness paracentesis was made in the temporal portion of the operative eye. Preservative-free lidocaine 0.1 mL was injected into the anterior chamber followed by viscoelastic. A full-thickness corneal incision was then made into the anterior chamber. A bent needle cystotome was used to create a small leif in the anterior capsule. The capsulorrhexis forceps was then used to create a 360-degree curvilinear capsulorrhexis. The nucleus was then removed using a phacoemulsification handpiece and the remaining cortical material was then removed with irrigation and aspiration handpiece. Following removal of the cortical material, the capsular bag was then inspected and noted to be free of any holes or tears. Viscoelastic was then injected into the capsular bag and the intraocular lens was inserted into the capsular bag. No complications occurred. The viscoelastic material was then removed from both the anterior and posterior chambers and from behind the IOL. The lens and capsular bag were then reinspected. The IOL was well centered and the capsular bag intact. The wound and paracentesis sites were inspected and hydrated with balanced saline solution. Both were found to be self-sealing. The intraocular pressure was assessed digitally and found to be within normal range. A good red reflex was noted at the completion of the procedure. No complications occurred during the operation. At the completion of the procedure, Maxitrol, Voltaren, and Iopidine drops were placed into the operative eye. A sterile eye shield was placed over the operative eye and the patient was transported to the postoperative recovery area having tolerated the procedure well. Postoperative instructions were given along with a postoperative appointment. The patient was advised to call with any questions or concerns. [facility] /[id number]
--- NOTE | 2016-11-22 11:36 | PCM48HPAN ---
Post Anesthesia Note - EVALUATION WITHIN 48HRS OF ANESTHETIC Vital Signs in Normal Range: Yes Patient Participated in Evaluation: Yes Respiratory Function Stable: Yes Airway Patent: Yes Cardiovascular Function Stable: Yes Hydration Status Stable: Yes Pain Control Satisfactory: Yes Nausea and Vomiting Control Satisfactory: Yes Mental Status Recovered: Yes - COMMENTS/OBSERVATIONS Free Text/Narrative:: Follow up/addendum to anesthesia record. Pt received Decadron 4mg IVP at 1120 on 11/15/16 during procedure which was not marked on anesthesia record. Pt had zero complications from medication administration.
== END 2016-11-15 12:44 | disposition home or self-care (01) ==
LOC: DL.SDS 10:23
PROVIDERS: ATTEND Ophthalmology
DX: H26.9 Unspecified cataract (principal); I25.10 Atherosclerotic heart disease of native coronary artery without angina pectoris; K21.9 Gastro-esophageal reflux disease without esophagitis; Z90.49 Acquired absence of other specified parts of digestive tract; Z93.3 Colostomy status; Z79.899 Other long term (current) drug therapy
CPT/HCPCS: 00142; 66984; A9270; J3370; J7050; J1100; J2250; V2632

== ENCOUNTER 2016-12-04 10:57 | Emergency (ER) | payer MEDICARE, BC ==
--- NOTE | 2016-12-04 11:15 | EDM.PDOC ---
ED HPI GENERAL MEDICAL PROBLEM - General Chief Complaint: Cardiovascular Problem Stated Complaint: HEART PROBLEMS Time Seen by Provider: 12/04/16 11:14 Source of Information: Reports: Patient, Family, Old Records, RN, RN Notes Reviewed History Limitations: Reports: No Limitations - History of Present Illness INITIAL COMMENTS - FREE TEXT/NARRATIVE: Arrives from home by POV with c/o generalized left sided chest pain and feeling of irregular HR approx. 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 Pt states she took an aspirin ( unsure of mg) shortly after the chest pain began. As pt was arriving to the ER the symptoms began to go away, and she was completely pain and symptom free at the time of my exam. Denies shortness or breath, cough, edema, N/V, abdominal pain, or back pain. Onset: Today, Sudden Duration: Resolved Prior to Arrival Location: Reports: Chest Quality: Reports: Ache, Pressure Severity: Moderate Improves with: Reports: None Worsens with: Reports: None Context: Reports: Other (onset while at rest) Associated Symptoms: Reports: No Other Symptoms Treatments CAFETERIA ASSISTANT: Reports: Aspirin, Other Medication(s) Chest Pain Score (Numeric/FACES): 3 - Related Data Allergies Allergy/AdvReac Type Severity Reaction Status Date / Time diazepam [From Valium] Allergy Intermediate UNKNOWN Verified 12/04/16 11:42 lorazepam [From Ativan] Allergy Intermediate Depression Verified 12/04/16 11:42 oxycodone [Oxycodone] Allergy Intermediate confusion/s Verified 12/04/16 11:42 edation atorvastatin calcium Allergy Mild Muscle Verified 12/04/16 11:42 [From Lipitor] Aches ezetimibe [From Vytorin] Allergy Mild Muscle Verified 12/04/16 11:42 Aches morphine Allergy Mild Itching Verified 12/04/16 11:42 nefazodone [Nefazodone] Allergy Mild Insomnia Verified 12/04/16 11:42 rosuvastatin calcium Allergy Mild Muscle Verified 12/04/16 11:42 [From Crestor] Aches simvastatin [From Vytorin] Allergy Mild Muscle Verified 12/04/16 11:42 Aches trazodone Allergy Mild Insomnia Verified 12/04/16 11:42 buprenorphine Allergy Unknown UNKNOWN Verified 12/04/16 11:42 codeine Allergy Unknown unknown Verified 12/04/16 11:42 pentazocine lactate Allergy Unknown UNKNOWN Verified 12/04/16 11:42 [From Talwin] propoxyphene Allergy Unknown UNKNOWN Verified 12/04/16 11:42 Home Meds: Home Meds Nitroglycerin [Nitrostat] 0.4 mg PO ASDIRECTED PRN 10/31/13 [History] Cyanocobalamin (Vitamin B-12) [B-12] 1,000 mcg PO DAILY 09/12/16 [History] Acetaminophen [Tylenol] 650 mg PO Q4H PRN tablet 11/14/16 [Rx] Digoxin 1 tab PO DAILY 11/14/16 [History] Meclizine [Antivert] 12.5 mg PO Q8H PRN #30 tablet 11/14/16 [Rx] Metoprolol Succinate [Toprol XL] 75 mg PO DAILY 11/14/16 [History] Pantoprazole [ProTONIX] 40 mg PO ACBREAKFAST 30 Days tab.cr 11/14/16 [Rx] Warfarin Sodium 1 mg PO ASDIRECTED 11/15/16 [History] Past Medical History HEENT History: Reports: Cataract, Impaired Vision Other HEENT History: wears corrective lenses, occipital neuralgia Cardiovascular History: Reports: Afib, CAD, High Cholesterol Respiratory History: Reports: Bronchitis, Recurrent Other Respiratory History: Recurrent aspiration bronchitis/pneumonia Gastrointestinal History: Reports: Chronic Constipation, GERD, Hemorrhoids Other Gastrointestinal History: Kendrick's esophagus, duodenitis Genitourinary History: Reports: Renal Calculus EARLY CHILDHOOD 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: 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: Other (See Below) Other OB/BYN History: 5 NVD and 1 miscarriage Musculoskeletal History: Reports: Arthritis Other Musculoskeletal History: Forestier's disease, DDD, Fall Neurological History: Reports: Vertigo Psychiatric History: Reports: Anxiety, Depression Other Psychiatric History: Insomnia, mild memory impairment Endocrine/Metabolic History: Reports: Osteopenia Hematologic History: Reports: Anticoagulation Therapy, Other (See Below) Other Hematologic History: on Plavix for atrial fib Immunologic History: Reports: None Oncologic (Cancer) History: Reports: None Dermatologic History: Reports: None - Infectious Disease History Infectious Disease History: Reports: Chicken Pox, Measles - Past Surgical History HEENT Surgical History: Reports: Adenoidectomy, Tonsillectomy Cardiovascular Surgical History: Reports: Coronary Artery Stent, Varicose Other Cardiovascular Surgeries/Procedures: 2 stents Respiratory Surgical History: Reports: None GI Surgical History: Reports: Appendectomy, Cholecystectomy, Colonoscopy, Colostomy, EGD Other GI Surgeries/Procedures: Tubular Adenoma of colon Female Surgical History: Reports: Hysterectomy, Kidney stone extraction Neurological Surgical History: Reports: None Musculoskeletal Surgical History: Reports: None Oncologic Surgical History: Reports: None Dermatological Surgical History: Reports: None Social & Family History - Family History Family Medical History: Noncontributory - Tobacco Use Smoking Status *Q: Never Smoker Second Hand Smoke Exposure: No - Caffeine Use Caffeine Use: Reports: None - Alcohol Use Days Per Week of Alcohol Use: 0 - Recreational Drug Use Recreational Drug Use: No - Living Situation & Occupation Occupation: Retired ED ROS GENERAL - Review of Systems Review Of Systems: ROS reveals no pertinent complaints other than HPI. ED EXAM, GENERAL - Physical Exam Exam: See Below Exam Limited By: No Limitations General Appearance: Alert, WD/WN, No Apparent Distress Nose: Normal Inspection Throat/Mouth: Normal Inspection, Normal Voice, No Airway Compromise Head: Atraumatic, Normocephalic Neck: Normal Inspection, Supple, Non-Tender, Full Range of Motion Respiratory/Chest: No Respiratory Distress, Lungs Clear, Normal Breath Sounds, No Accessory Muscle Use, Chest Non-Tender Cardiovascular: Normal Peripheral Pulses, Regular Rate, Rhythm, No Edema, No Gallop, No JVD, No Murmur, No Rub GI/Abdominal: Normal Bowel Sounds, Soft, Non-Tender, No Organomegaly, No Distention Back Exam: Normal Inspection Extremities: Normal Inspection, Normal Range of Motion, Non-Tender, Normal Capillary Refill, No Pedal Edema Neurological: Alert, Oriented, CN II-XII Intact, Normal Cognition, Normal Gait, No Motor/Sensory Deficits Psychiatric: Normal Affect, Normal Mood Skin Exam: Warm, Dry, Intact, Normal Color, No Rash EKG INTERPRETATION EKG Date: 12/04/16 Time: 11:13 Rhythm: Other (SR) [place]: Normal P-Wave: Present QRS: Normal ST-T: Normal QT: Normal Comparison: Change From Previous EKG (Prior EKG with A-fib) Course - Vital Signs Last Recorded V/S: Last Vital Signs Temp 36.2 C 12/04/16 11:18 Pulse 62 12/04/16 11:18 Resp 13 12/04/16 11:18 BP 137/59 L 12/04/16 11:18 Pulse Ox 98 12/04/16 11:18 - Orders/Labs/Meds Orders: Active Orders 24 hr Category Date Time Status EKG 12 Lead [EKG Documentation Completion] [RC] STAT Care 12/04/16 11:17 Active Peripheral IV Care [RC] . DIRECTED Care 12/04/16 11:17 Active Chest 1V Frontal [CR] Stat Exams 12/04/16 11:17 Ordered Sodium Chloride 0.9% [Saline Flush] Med 12/04/16 11:17 Active 10 ml FLUSH ASDIRECTED PRN Peripheral IV Insertion Adult [OM.PC] Stat Oth 12/04/16 11:17 Ordered Medication Orders Sodium Chloride (Saline Flush) 10 ml FLUSH ASDIRECTED PRN PRN Reason: Keep Vein Open Labs: Laboratory Tests 12/04/16 12/04/16 12/04/16 Range/Units 11:16 11:16 11:16 WBC 5.3 (5.0-10.0) 10^3/uL RBC 4.45 (4.2-5.4) 10^6/uL Hgb 13.7 D (12.0-16.0) g/dL Hct 43.3 (37.0-47.0) % MCV 97.3 D (80-100) fL MCH 30.8 (27.0-34.0) pg MCHC 31.6 L (33.0-35.0) g/dL Plt Count 226 (150-450) 10^3/uL Neut % (Auto) 68.5 (42.2-75.2) % Lymph % (Auto) 20.2 L (20.5-50.1) % [place] % (Auto) 9.6 H (2-8) % Eos % (Auto) 1.3 (1.0-3.0) % Baso % (Auto) 0.4 (0.0-1.0) % PT 20.6 H D (9.0-12.0) SEC INR 2.0 H (0.9-1.2) Sodium 143 (135-145) mmol/L Potassium 3.7 (3.6-5.0) mmol/L Chloride 106 (101-111) mmol/L Carbon Dioxide 28.0 (21.0-31.0) mmol/L Anion Gap 12.7 BUN 9 (7-18) mg/dL Creatinine 0.6 (0.6-1.3) mg/dL Est Cr Clr Drug Dosing 65.34 mL/min Estimated GFR (MDRD) > 60 BUN/Creatinine Ratio 15.00 Glucose 119 H (74-105) mg/dL Calcium 9.6 (8.4-10.2) mg/dl Total Bilirubin 0.6 (0.2-1.0) mg/dL AST 22 (10-42) IU/L ALT 14 (10-60) IU/L Alkaline Phosphatase 36 L (42-121) IU/L Troponin I (0.00-0.02) ng/ml B-Natriuretic Peptide 401 H (0-100) pg/ml Total Protein 7.5 (6.7-8.2) g/dl Albumin 4.1 (3.2-5.5) g/dl Globulin 3.4 Albumin/Globulin Ratio 1.21 Amylase 57 (28-100) U/L Lipase 44 (22-51) U/L Digoxin (0-2.5) ng/ml 12/04/16 12/04/16 Range/Units 11:16 11:16 WBC (5.0-10.0) 10^3/uL RBC (4.2-5.4) 10^6/uL Hgb (12.0-16.0) g/dL Hct (37.0-47.0) % MCV (80-100) fL MCH (27.0-34.0) pg MCHC (33.0-35.0) g/dL Plt Count (150-450) 10^3/uL Neut % (Auto) (42.2-75.2) % Lymph % (Auto) (20.5-50.1) % [place] % (Auto) (2-8) % Eos % (Auto) (1.0-3.0) % Baso % (Auto) (0.0-1.0) % PT (9.0-12.0) SEC INR (0.9-1.2) Sodium (135-145) mmol/L Potassium (3.6-5.0) mmol/L Chloride (101-111) mmol/L Carbon Dioxide (21.0-31.0) mmol/L Anion Gap BUN (7-18) mg/dL Creatinine (0.6-1.3) mg/dL Est Cr Clr Drug Dosing mL/min Estimated GFR (MDRD) BUN/Creatinine Ratio Glucose (74-105) mg/dL Calcium (8.4-10.2) mg/dl Total Bilirubin (0.2-1.0) mg/dL AST (10-42) IU/L ALT (10-60) IU/L Alkaline Phosphatase (42-121) IU/L Troponin I < 0.02 (0.00-0.02) ng/ml B-Natriuretic Peptide (0-100) pg/ml Total Protein (6.7-8.2) g/dl Albumin (3.2-5.5) g/dl Globulin Albumin/Globulin Ratio Amylase (28-100) U/L Lipase (22-51) U/L Digoxin 1.0 (0-2.5) ng/ml Meds: Medications Generic Name Dose Route Start Last Admin Trade Name Freq PRN Reason Stop Dose Admin Sodium Chloride 10 ml 12/04/16 11:17 Saline Flush FLUSH ASDIRECTED PRN Keep Vein Open - Radiology Interpretation Free Text/Narrative:: CXR: no acute process, see Rad. report. Departure - Departure Time of Disposition: 12:23 Disposition: Home, Self-Care 01 Condition: Good Clinical Impression: Chest pain, atypical, History of atrial fibrillation Instructions: Atrial Fibrillation, [id number], Nonspecific Chest Pain Forms: ED Department Discharge Additional Instructions: Follow up with your primary clinic this week for recheck. Return to ER if worse at any time. - My Orders Last 24 Hours: My Active Orders 12/04/16 11:17 EKG 12 Lead [EKG Documentation Completion] [RC] STAT Peripheral IV Care [RC] . DIRECTED Chest 1V Frontal [CR] Stat Sodium Chloride 0.9% [Saline Flush] 10 ml FLUSH ASDIRECTED PRN Peripheral IV Insertion Adult [OM.PC] Stat - Assessment/Plan Last 24 Hours: My Active Orders 12/04/16 11:17 EKG 12 Lead [EKG Documentation Completion] [RC] STAT Peripheral IV Care [RC] . DIRECTED Chest 1V Frontal [CR] Stat Sodium Chloride 0.9% [Saline Flush] 10 ml FLUSH ASDIRECTED PRN Peripheral IV Insertion Adult [OM.PC] Stat
[2016-12-04 11:17] VITALS: BP 137/59
[2016-12-04] MEDS ORDERED: Sodium Chloride 0.9% 10 ML Syringe FLUSH PRN (11:17)
[2016-12-04 11:49] LABS: CHLORIDE,CL 106 mmol/L (101-111); SODIUM,NA 143 mmol/L (135-145)
--- NOTE | 2016-12-04 14:29 | CR ---
Clinical history: 86-year-old female with chest pain. Interpretation: No acute new cardiopulmonary abnormality identified in the interval since 2016 exam. Slight shaggy accentuation central lung markings but normal cardiac silhouette without alveolar edema or dependent effusion. No lung mass, hilar lymphadenopathy or focal lobar pneumonia. No atelectasis/collapse. No pneumothorax.
--- NOTE | 2016-12-06 16:48 | EKG ---
12/04/2016 - JOEY CASTANO - Twelve-lead EKG shows normal sinus rhythm with heart rate of 63. No significant ST elevation or ST depression noted on this 12-lead EKG. Nonspecific ST-T wave changes noted on lead III. [facility] /[id number]
== END 2016-12-04 12:51 | disposition home or self-care (01) ==
LOC: DL.ED 10:57
DX: R07.89 Other chest pain (principal); I48.91 Unspecified atrial fibrillation; I25.10 Atherosclerotic heart disease of native coronary artery without angina pectoris; E78.00 Pure hypercholesterolemia, unspecified; K21.9 Gastro-esophageal reflux disease without esophagitis; M19.90 Unspecified osteoarthritis, unspecified site; Z87.442 Personal history of urinary calculi; F32.9 Major depressive disorder, single episode, unspecified; Z79.01 Long term (current) use of anticoagulants; Z90.49 Acquired absence of other specified parts of digestive tract; Z98.890 Other specified postprocedural states; Z95.5 Presence of coronary angioplasty implant and graft; Z90.710 Acquired absence of both cervix and uterus; Z79.899 Other long term (current) drug therapy; Z88.5 Allergy status to narcotic agent; Z88.6 Allergy status to analgesic agent; Z88.8 Allergy status to other drugs, medicaments and biological substances
CPT/HCPCS: 36415; 71010; 80053; 80162; 82150; 83690; 83880; 84484; 85025; 85610; 93005; 93010; 99284; 99285

== ENCOUNTER 2016-12-20 08:17 | Day surgery (SDC) | payer MEDICARE, BC ==
[~2016-12-20 08:17] MED LIST changes: -Acetaminophen 325 MG Tab PO PRN; -Cataract Ophth Solution EYELF ONE; +Dilation Soln 1 EA EACH EYERT ONE; -Moxifloxacin 0.5% Ophth Soln 3 ML Bottle EYELF ONE; +Moxifloxacin 0.5% Ophth Soln 3 ML Bottle EYERT ONE; -Ondansetron 4 MG/2 ML SDV IVPUSH PRN; -Phenylephrine 10% Ophth Soln 5 ML Bot EYELF ONE; -Phenylephrine 10% Ophth Soln 5 ML Bot EYELF PRN; +Phenylephrine 10% Ophth Soln 5 ML Bot EYERT ONE; -Povidone-Iodine 5% Sterile Ophth Soln 30 ML Bottle EYELF ONE; +Povidone-Iodine 5% Sterile Ophth Soln 30 ML Bottle EYERT ONE; -Proparacaine 0.5% Ophth Soln 15 ML Bottle EYELF ONE; +Proparacaine 0.5% Ophth Soln 15 ML Bottle EYERT ONE; -Timolol Maleate 0.5% Ophth Soln 5 ML Bottle EYELF ONE; +Timolol Maleate 0.5% Ophth Soln 5 ML Bottle EYERT ONE
[2016-12-20] MEDS ORDERED: Dexamethasone 4 MG/ML SDV IV ONE (08:18)
[2016-12-20] MEDS ORDERED: Midazolam 1 MG/ML 2 ML SDV IV ONE (08:18)
[2016-12-20] MEDS ORDERED: Sodium Chloride 0.9% 10 ML Syringe IV ONE (08:18)
[2016-12-20] MEDS ORDERED: Dexamethasone 4 MG/ML SDV ONE (09:22)
[2016-12-20] MEDS ORDERED: Midazolam 1 MG/ML 2 ML SDV ONE (09:22)
[2016-12-20] MEDS ORDERED: Apraclonidine 0.5% Ophth Soln 5 ML Bot EYERT ONE (10:01)
[2016-12-20] MEDS ORDERED: Povidone-Iodine 5% Sterile Ophth Soln 30 ML Bottle EYERT ONE (10:01)
[2016-12-20] MEDS ORDERED: Diclofenac Sodium 0.1% Ophth Soln 5 ML Bottle EYERT ONE (10:01)
[2016-12-20] MEDS ORDERED: Dexamethasone/Neomycin/Polymyxin B Ophth Oint 3.5 GM Tube EYERT ONE (10:01)
[2016-12-20] MEDS ORDERED: Tetracaine HCl/PF 0.5% 4 ML Bottle EYERT ONE (10:01)
[2016-12-20] MEDS ORDERED: Vancomycin 500 MG SDV EYERT ONE (10:02)
[2016-12-20] MEDS ORDERED: Chondroitin Sulfate/Hyaluronate Sodium Ophth Inj 0.75 ML Syringe EYERT ONE (10:02)
[2016-12-20] MEDS ORDERED: Balanced Salt Solution Ophth Irrig 500 ML Bottle IOCULAR ONE (10:02)
[2016-12-20] MEDS ORDERED: Lidocaine 1% 30 ML SDV ONE (10:02)
--- NOTE | 2016-12-20 12:11 | OR ---
DATE: 12/20/2016 PREOPERATIVE DIAGNOSIS: Cataract, right eye. POSTOPERATIVE DIAGNOSIS: Cataract, right eye. PROCEDURE: Extracapsular cataract extraction with intraocular lens implant, right eye. ANESTHESIA: Topical/local MAC. COMPLICATIONS: None. INDICATION: Mrs. Hinson was seen in the clinic. She complained of difficulty driving, difficulty seeing images. Clinical examination reveals mixed cataract with best spectacle corrected vision of 20/40. I explained options. I offered cataract surgery, and I explained risks including but not limited to, infection, retinal detachment, loss of vision, need for additional surgery, and risks associated with anesthesia. We discussed implant options. She requested a monofocal implant. She voiced an understanding with respect to risks and wished to proceed. OPERATIVE DESCRIPTION: After informed consent was obtained and the risks, benefits, and alternatives were explained, the patient was brought to the operative suite and topical anesthesia was administered. The patient was then prepped and draped in the sterile fashion and attention was placed on the right eye. A sterile lid speculum was placed into the right eye to allow operative exposure. A full-thickness paracentesis was made in the temporal portion of the operative eye. Preservative-free lidocaine 0.1 mL was injected into the anterior chamber followed by viscoelastic. A full-thickness corneal incision was then made into the anterior chamber. A bent needle cystotome was used to create a small leif in the anterior capsule. The capsulorrhexis forceps was then used to create a 360-degree curvilinear capsulorrhexis. The nucleus was then removed using a phacoemulsification handpiece and the remaining cortical material was then removed with irrigation and aspiration handpiece. Following removal of the cortical material, the capsular bag was then inspected and noted to be free of any holes or tears. Viscoelastic was then injected into the capsular bag and the intraocular lens was inserted into the capsular bag. The viscoelastic material was then removed from both the anterior and posterior chambers and from behind the IOL. The lens and capsular bag were then reinspected. The IOL was well centered and the capsular bag intact. The wound and paracentesis sites were inspected and hydrated with balanced saline solution. Both were found to be self- sealing. The intraocular pressure was assessed digitally and found to be within normal range. A good red reflex was noted at the completion of the procedure. No complications occurred during the operation. At the completion of the procedure, Maxitrol, Voltaren, and Iopidine drops were placed into the operative eye. A sterile eye shield was placed over the operative eye and the patient was transported to the postoperative recovery area having tolerated the procedure well. Postoperative instructions were given along with a postoperative appointment. The patient was advised to call with any questions or concerns. No complications occurred. [facility] /[id number]
[2016-12-20 14:31] VITALS: BP 126/64
== END 2016-12-20 11:11 | disposition home or self-care (01) ==
LOC: DL.SDS 08:17
PROVIDERS: ATTEND Ophthalmology
DX: H25.811 Combined forms of age-related cataract, right eye (principal); F41.8 Other specified anxiety disorders; E78.5 Hyperlipidemia, unspecified; K21.9 Gastro-esophageal reflux disease without esophagitis; G47.33 Obstructive sleep apnea (adult) (pediatric); Z90.710 Acquired absence of both cervix and uterus; Z98.890 Other specified postprocedural states; Z79.01 Long term (current) use of anticoagulants; Z79.899 Other long term (current) drug therapy; Z88.8 Allergy status to other drugs, medicaments and biological substances
CPT/HCPCS: 00142; 66984; A9270; C1780; J1100; J2250; J3370; J7050

== ENCOUNTER 2016-12-29 07:35 | Observation (INO) | payer MEDICARE, BC ==
--- NOTE | 2016-12-29 07:43 | EDM.PDOC ---
ED HPI GENERAL MEDICAL PROBLEM - General Chief Complaint: Chest Pain Stated Complaint: CHEST PAIN Time Seen by Provider: 12/29/16 07:41 Source of Information: Reports: Patient, RN, RN Notes Reviewed History Limitations: Reports: No Limitations - History of Present Illness INITIAL COMMENTS - FREE TEXT/NARRATIVE: Pt presents to ER with c/o chest pain, right and left sided with pain up into the neck/throat area. Pt states the crushing pain is "the worst pain she has ever had". She states a history of atrial fibrillation. Patient denies fever, chills, N/V/D. She admits to sob at times. She states she has nitroglycerin at home, but has not taken anything. She states she took an Aleve last night. Onset: Today, Sudden Onset Date: 12/29/16 Onset Time: 06:00 Location: Reports: Chest Quality: Reports: Pressure, Other (crushing) Severity: Severe Improves with: Reports: None Worsens with: Reports: None Associated Symptoms: Reports: Chest Pain, Shortness of Breath, Weakness - Related Data Allergies Allergy/AdvReac Type Severity Reaction Status Date / Time diazepam [From Valium] Allergy Intermediate UNKNOWN Verified 12/29/16 07:38 lorazepam [From Ativan] Allergy Intermediate Depression Verified 12/29/16 07:38 oxycodone [Oxycodone] Allergy Intermediate confusion/s Verified 12/29/16 07:38 edation atorvastatin calcium Allergy Mild Muscle Verified 12/29/16 07:38 [From Lipitor] Aches ezetimibe [From Vytorin] Allergy Mild Muscle Verified 12/29/16 07:38 Aches morphine Allergy Mild Itching Verified 12/29/16 07:38 nefazodone [Nefazodone] Allergy Mild Insomnia Verified 12/29/16 07:38 rosuvastatin calcium Allergy Mild Muscle Verified 12/29/16 07:38 [From Crestor] Aches simvastatin [From Vytorin] Allergy Mild Muscle Verified 12/29/16 07:38 Aches trazodone Allergy Mild Insomnia Verified 12/29/16 07:38 buprenorphine Allergy Unknown UNKNOWN Verified 12/29/16 07:38 codeine Allergy Unknown unknown Verified 12/29/16 07:38 pentazocine lactate Allergy Unknown UNKNOWN Verified 12/29/16 07:38 [From Talwin] propoxyphene Allergy Unknown UNKNOWN Verified 12/29/16 07:38 Home Meds: Home Meds Nitroglycerin [Nitrostat] 0.4 mg PO ASDIRECTED PRN 10/31/13 [History] Cyanocobalamin (Vitamin B-12) [B-12] 1,000 mcg PO DAILY 09/12/16 [History] Acetaminophen [Tylenol] 650 mg PO Q4H PRN tablet 11/14/16 [Rx] Digoxin 1 tab PO DAILY 11/14/16 [History] Metoprolol Succinate [Toprol XL] 50 mg PO DAILY 11/14/16 [History] Pantoprazole [ProTONIX] 40 mg PO ACBREAKFAST 30 Days tab.cr 11/14/16 [Rx] Warfarin Sodium 2 mg PO ASDIRECTED 11/15/16 [History] Past Medical History HEENT History: Reports: Cataract, Impaired Vision Other HEENT History: wears corrective lenses, occipital neuralgia Cardiovascular History: Reports: Afib, CAD, High Cholesterol, HI Respiratory History: Reports: Bronchitis, Recurrent, PE, Pneumonia, Recurrent, Sleep Apnea Other Respiratory History: Recurrent aspiration bronchitis/pneumonia Gastrointestinal History: Reports: Chronic Constipation, GERD, Hemorrhoids, Irritable Bowel Syndrome Other Gastrointestinal History: Kendrick's esophagus, duodenitis Genitourinary History: Reports: Renal Calculus WING [employer]ER History: Reports: Other (See Below) Other OB/BYN History: 5 NVD and 1 miscarriage Musculoskeletal History: Reports: Arthritis, Fibromyalgia, Other (See Below) Other Musculoskeletal History: Forestier's disease, DDD, Fall Neurological History: Reports: Vertigo Psychiatric History: Reports: Anxiety, Depression Other Psychiatric History: Insomnia, mild memory impairment Endocrine/Metabolic History: Reports: Osteopenia, Other (See Below) Other Endocrine/Metabolic History: thyroid cyst Hematologic History: Reports: Anticoagulation Therapy, Other (See Below) Other Hematologic History: on Plavix for atrial fib Immunologic History: Reports: None Oncologic (Cancer) History: Reports: None Dermatologic History: Reports: None - Infectious Disease History Infectious Disease History: Reports: Chicken Pox, Measles - Past Surgical History Head Surgeries/Procedures: Reports: None HEENT Surgical History: Reports: Adenoidectomy, Cataract Surgery, Tonsillectomy Other HEENT Surgeries/Procedures: left eye surgery Cardiovascular Surgical History: Reports: Coronary Artery Stent, Varicose Other Cardiovascular Surgeries/Procedures: 2 stents Respiratory Surgical History: Reports: None GI Surgical History: Reports: Appendectomy, Cholecystectomy, Colonoscopy, Colostomy, EGD Other GI Surgeries/Procedures: Tubular Adenoma of colon, vein stripping Female Surgical History: Reports: Hysterectomy, Kidney stone extraction Neurological Surgical History: Reports: None Musculoskeletal Surgical History: Reports: None Oncologic Surgical History: Reports: None Dermatological Surgical History: Reports: None Social & Family History - Family History Family Medical History: Noncontributory - Tobacco Use Smoking Status *Q: Never Smoker Second Hand Smoke Exposure: No - Caffeine Use Caffeine Use: Reports: None - Alcohol Use Days Per Week of Alcohol Use: 0 - Recreational Drug Use Recreational Drug Use: No - Living Situation & Occupation Occupation: Retired ED ROS GENERAL - Review of Systems Review Of Systems: ROS reveals no pertinent complaints other than HPI. ED EXAM, GENERAL - Physical Exam Exam: See Below Exam Limited By: No Limitations General Appearance: Alert, WD/WN, No Apparent Distress Eye Exam: Bilateral Eye: Normal Inspection Ears: Normal External Exam, Hearing Grossly Normal Nose: Normal Inspection Throat/Mouth: Normal Inspection, Normal Voice, No Airway Compromise Head: Atraumatic, Normocephalic Neck: Normal Inspection, Supple, Non-Tender, Full Range of Motion Respiratory/Chest: No Respiratory Distress, Lungs Clear, No Accessory Muscle Use , Decreased Breath Sounds Cardiovascular: Normal Peripheral Pulses, No Edema, Tachycardia, Irregularly Irregular Peripheral Pulses: 1+: Radial (L), Radial (R) GI/Abdominal: Normal Bowel Sounds, Soft, Non-Tender (Female) Exam: Deferred Rectal (Female) Exam: Deferred Back Exam: Normal Inspection, Full Range of Motion Extremities: Normal Inspection, Normal Range of Motion, Non-Tender, No Pedal Edema, Normal Capillary Refill Neurological: Alert, Oriented, Normal Cognition, No Motor/Sensory Deficits Psychiatric: Normal Affect, Normal Mood Skin Exam: Warm, Dry, Intact, Normal Color, No Rash Lymphatic: No Adenopathy EKG INTERPRETATION EKG Date: 12/29/16 Time: 07:44 Rhythm: A-Fib (RVR) Rate (Beats/Min): 166 Course - Vital Signs Last Recorded V/S: Last Vital Signs Temp 97.3 F 12/29/16 07:49 Pulse 135 H 12/29/16 08:05 Resp 20 12/29/16 07:49 BP 112/73 12/29/16 08:05 Pulse Ox 98 12/29/16 07:49 - Orders/Labs/Meds Orders: Active Orders 24 hr Category Date Time Status EKG Documentation Completion [RC] STAT Care 12/29/16 07:40 Active Peripheral IV Care [RC] . DIRECTED Care 12/29/16 07:53 Active Chest 1V Frontal [CR] Stat Exams 12/29/16 08:18 Taken Diltiazem [Cardizem] 100 mg Med 12/29/16 08:00 Active Sodium Chloride 0.9% [Normal Saline] 100 ml IV TITRATE Sodium Chloride 0.9% [Normal Saline] 1,000 ml Med 12/29/16 08:12 Active IV .BOLUS Sodium Chloride 0.9% [Saline Flush] Med 12/29/16 07:52 Active 10 ml FLUSH ASDIRECTED PRN Peripheral IV Insertion Adult [OM.PC] Stat Oth 12/29/16 07:52 Ordered Medication Orders Diltiazem HCl 100 mg/ Sodium (Chloride) 100 mls @ 5 mls/hr IV TITRATE DEBBIE; 5 MG /HR PRN Reason: Protocol Last Admin: 12/29/16 08:05 Dose: 5 mg/hr, 5 mls/hr Sodium Chloride (Normal Saline) 1,000 mls @ 500 mls/hr IV .BOLUS ONE Stop: 12/29/16 10:11 Last Admin: 12/29/16 08:14 Dose: 500 mls/hr Sodium Chloride (Saline Flush) 10 ml FLUSH ASDIRECTED PRN PRN Reason: Keep Vein Open Last Admin: 12/29/16 08:07 Dose: 10 ml Labs: Laboratory Tests 12/29/16 12/29/16 12/29/16 Range/Units 07:48 07:48 07:48 WBC 9.7 (5.0-10.0) 10^3/uL RBC 4.71 (4.2-5.4) 10^6/uL Hgb 14.5 (12.0-16.0) g/dL Hct 45.2 (37.0-47.0) % MCV 96.0 (80-100) fL MCH 30.8 (27.0-34.0) pg MCHC 32.1 L (33.0-35.0) g/dL Plt Count 272 (150-450) 10^3/uL Neut % (Auto) 82.3 H (42.2-75.2) % Lymph % (Auto) 11.6 L (20.5-50.1) % [place] % (Auto) 6.0 (2-8) % Eos % (Auto) 0.0 L (1.0-3.0) % Baso % (Auto) 0.1 (0.0-1.0) % PT 29.8 H D (9.0-12.0) SEC INR 3.0 H (0.9-1.2) Sodium 141 (135-145) mmol/L Potassium 3.9 (3.6-5.0) mmol/L Chloride 108 (101-111) mmol/L Carbon Dioxide 23.0 (21.0-31.0) mmol/L Anion Gap 13.9 BUN 16 (7-18) mg/dL Creatinine 0.6 (0.6-1.3) mg/dL Est Cr Clr Drug Dosing TNP Estimated GFR (MDRD) > 60 BUN/Creatinine Ratio 26.66 Glucose 113 H (74-105) mg/dL Calcium 9.5 (8.4-10.2) mg/dl Total Bilirubin 0.8 (0.2-1.0) mg/dL AST 20 (10-42) IU/L ALT 17 (10-60) IU/L Alkaline Phosphatase 35 L (42-121) IU/L Troponin I < 0.02 (0.00-0.02) ng/ml Total Protein 7.3 (6.7-8.2) g/dl Albumin 4.0 (3.2-5.5) g/dl Globulin 3.3 Albumin/Globulin Ratio 1.21 Meds: Medications Generic Name Dose Route Start Last Admin Trade Name Freq PRN Reason Stop Dose Admin Diltiazem HCl 100 mg/ Sodium 100 mls @ 5 mls/hr 12/29/16 08:00 12/29/16 08:05 Chloride IV 5 mg/hr TITRATE DEBBIE 5 mls/hr Protocol Administration 5 MG/HR Sodium Chloride 1,000 mls @ 500 mls/hr 12/29/16 08:12 12/29/16 08:14 Normal Saline IV 12/29/16 10:11 500 mls/hr .BOLUS ONE Administration Sodium Chloride 10 ml 12/29/16 07:52 12/29/16 08:07 Saline Flush FLUSH 10 ml ASDIRECTED PRN Administration Keep Vein Open Discontinued Medications Generic Name Dose Route Start Last Admin Trade Name Freq PRN Reason Stop Dose Admin Diltiazem HCl 20 mg 12/29/16 07:53 12/29/16 08:03 Diltiazem IVPUSH 12/29/16 07:54 20 mg ONETIME ONE Administration - Radiology Interpretation Free Text/Narrative:: chest xray: See rad report Departure - Departure Time of Disposition: 08:57 Disposition: Admitted As Inpatient 68 Condition: Fair Clinical Impression: History of atrial fibrillation, Rapid atrial fibrillation, afib Forms: ED Department Discharge - My Orders Last 24 Hours: My Active Orders 12/29/16 07:40 EKG Documentation Completion [RC] STAT 12/29/16 07:52 Sodium Chloride 0.9% [Saline Flush] 10 ml FLUSH ASDIRECTED PRN Peripheral IV Insertion Adult [OM.PC] Stat 12/29/16 07:53 Peripheral IV Care [RC] . DIRECTED 12/29/16 08:00 Diltiazem [Cardizem] 100 mg Sodium Chloride 0.9% [Normal Saline] 100 ml IV TITRATE 12/29/16 08:12 Sodium Chloride 0.9% [Normal Saline] 1,000 ml IV .BOLUS 12/29/16 08:18 Chest 1V Frontal [CR] Stat - Assessment/Plan Last 24 Hours: My Active Orders 12/29/16 07:40 EKG Documentation Completion [RC] STAT 12/29/16 07:52 Sodium Chloride 0.9% [Saline Flush] 10 ml FLUSH ASDIRECTED PRN Peripheral IV Insertion Adult [OM.PC] Stat 12/29/16 07:53 Peripheral IV Care [RC] . DIRECTED 12/29/16 08:00 Diltiazem [Cardizem] 100 mg Sodium Chloride 0.9% [Normal Saline] 100 ml IV TITRATE 12/29/16 08:12 Sodium Chloride 0.9% [Normal Saline] 1,000 ml IV .BOLUS 12/29/16 08:18 Chest 1V Frontal [CR] Stat
[2016-12-29] MEDS ORDERED: Sodium Chloride 0.9% 10 ML Syringe FLUSH PRN (07:52)
[2016-12-29] MEDS ORDERED: Diltiazem 25 MG/5 ML SDV IVPUSH ONE (07:53)
[2016-12-29] MEDS ORDERED: Diltiazem 100 MG in Sodium Chloride 0.9% 100 ML IV SCH (08:00)
[2016-12-29] MEDS ORDERED: Sodium Chloride 0.9% 1,000 ML IV ONE (08:12)
[2016-12-29 08:43] LABS: CHLORIDE,CL 108 mmol/L (101-111); SODIUM,NA 141 mmol/L (135-145)
--- NOTE | 2016-12-29 09:34 | CR ---
Clinical history: 86-year-old female chest pain. Interpretation: No acute new cardiopulmonary abnormality since AP chest films 04 December 2016 and 14 S eptember 2017. Calcifications arch of the aorta. Normal cardiac silhouette. No cephalization of vascular flow, signs of alveolar edema or dependent ef fusion. No new lung mass, hilar lymphadenopathy or focal lobar pneumonia. No atelectasis/collapse. No pneumothorax.
[2016-12-29] MEDS ORDERED: Polyethylene Glycol 3350 Powder 17 GM Packet PO PRN (10:37)
[2016-12-29] MEDS ORDERED: Bisacodyl 5 MG Tab PO PRN (10:37)
[2016-12-29] MEDS ORDERED: Magnesium Hydroxide 400 MG/5 ML Susp 30 ML Cup PO PRN (10:37)
[2016-12-29] MEDS ORDERED: Nitroglycerin 0.4 MG Tab.SL SL PRN (10:44)
--- NOTE | 2016-12-29 11:38 | HP ---
CHIEF COMPLAINT: Chest palpitations with chest heaviness. HISTORY OF PRESENTING ILLNESS: Mrs. Sierra Hinson is an 86-year-old female with medical history significant for paroxysmal atrial fibrillation, history of pulmonary embolism on chronic anticoagulation with Coumadin, history of non-ST- elevation myocardial infarction in the past, requiring bifurcation stenting to the ostial left circumflex and also to the ostial left anterior descending artery with drug-eluting stents, history of Kendrick's esophagus, history of possible GI bleed in the past, but negative endoscopy and colonoscopy, history of benign positional vertigo, carotid artery disease, gastroesophageal reflux disease, and cataracts surgeries, presents to the ER with complaints of chest heaviness and palpitations, and while in the emergency room, the patient was noted to have atrial fibrillation with rapid ventricular response where her heart rate was up to 150 to 160 requiring IV Cardizem drip. The patient had complications with hypotension requiring fluid bolus and requiring admission to the hospital. At this time, the patient claims that around 6:30 a.m., she woke up with chest tightness and palpitations. She describes the tightness as 10/10 in intensity, which lasted for almost 1 hour up until she came to the emergency room and got treated with Cardizem. She also had associated sweating, but no dyspnea, it was nonradiating type of pain, but she felt fullness in her throat. She denied any fevers or chills in the last few days. No complaints of cough with sputum for the last few days. No complaints of nausea, vomiting, or diarrhea in the last few days. No complaints of abdominal pain. The patient had a similar complaints in the past for her atrial fibrillation. She has been compliant with her medications. The patient denied any history of chest pains on exertion, but has mild dyspnea on exertion. No history of orthopnea or paroxysmal nocturnal dyspnea. The patient denied any history of hematemesis, hematochezia, or melanotic stools. Normal bladder habits, but complains of having constipation. Her last bowel movement was 3 to 4 days back. REVIEW OF SYSTEMS: A complete review of system including skin, ear, nose, and throat, cardiovascular system, respiratory system, gastrointestinal system, genitourinary system, hematology, oncology, neurology, allergy, immunology, constitutional were all evaluated and were negative except for the above-said notes. PAST MEDICAL HISTORY: Significant for; 1. Hypertension. 2. Hyperlipidemia. 3. Coronary artery disease. 4. History of sgc-PI-ucuinbjdd myocardial infarction. 5. Status post stents placed in the coronary arteries. 6. Gastroesophageal reflux disease. 7. Depression and anxiety. 8. Cataracts. 9. Elevated TSH. 10.Fibromyalgia. 11.History of gastrointestinal bleed in the past. 12.Occipital neuralgia. 13.Paroxysmal atrial fibrillation. 14.Tubular adenoma on the polyp. PAST SURGICAL HISTORY: Significant for; 1. Cardiac cath with stent placement to the LAD and circumflex. 2. Cholecystectomy. 3. Colonoscopy with biopsies. 4. Hysterectomy. 5. Varicose vein surgery. FAMILY HISTORY: Significant for Hodgkin's lymphoma in her father. SOCIAL HISTORY: The patient denied any history of smoking tobacco. No history of alcohol intake. ALLERGIES: The patient noted to have allergies to; 1. Ativan. 2. Crestor. 3. Lipitor. 4. Nefazodone. 5. Oxycodone. 6. Acetaminophen. 7. Vytorin. 8. Buprenorphine. 9. Codeine. 10.Propoxyphene. 11.Talwin. 12.Valium. 13.Morphine. 14.Trazodone. MEDICATIONS: Home medications include; 1. Potassium chloride 20 mEq daily. 2. Coumadin 2 mg daily. 3. Milk of magnesia 30 mL daily as needed. 4. Tylenol 500 mg every 6 hours as needed. 5. Protonix 40 mg daily. 6. Toprol-XL 50 mg daily. 7. Vitamin B12, 1000 mcg daily. 8. Digoxin 0.125 mg daily. 9. Nitroglycerin 0.4 mg sublingual as needed for chest pain. PHYSICAL EXAMINATION: Vital Signs: Temperature of 96.9, pulse of 141, respiratory rate of 20, blood pressure 126/64, saturating at 100% on 1 L of oxygen. General Appearance: The patient is well oriented to time, place, and person. Follows commands spontaneously. Cardiovascular System: S1 and S2 heard with normal intensity. No gallops. Respiratory System: Clear to auscultation bilaterally. No wheeze. No crepitations. Abdomen: Soft. Bowel sounds positive. Nontender. No rigidity. Extremities: No edema bilateral lower extremities. Neurology: No gross focal neurological deficits. LABORATORY DATA: Reviewed. Hemoglobin 14.5, hematocrit 45.2, WBC 9.7, platelet count 272. INR 3. Sodium 141, potassium 3.9 chloride 108, bicarb 23, BUN 16, creatinine 0.6, glucose 113, AST 20, ALT 17. Troponin less than 0.02. ASSESSMENT: 1. Atrial fibrillation with rapid ventricular response. 2. On chronic anticoagulation with Coumadin. 3. History of pulmonary embolism in the past. 4. Coronary artery disease, status post stents placed in the past. 5. Hypertension. 6. Hyperlipidemia. 7. Carotid artery disease. PLAN: 1. Atrial fibrillation with rapid ventricular response. The patient was started on Cardizem bolus, and also Cardizem drip from which her heart rate seems to be well controlled. After getting admitted to the hospital, her heart rate dropped down to 60s. We will hold the Cardizem drip for now. We will get a 12-lead EKG. We will follow up serial cardiac enzymes. Her first set of cardiac enzymes remained negative. She denies any ongoing chest pain. Continue with aspirin. Continue the beta callie. We will closely monitor in the telemetry unit. 2. Chronic anticoagulation. The patient has been on chronic angle anticoagulation with Coumadin. Her INR is elevated up to 3. Pharmacy to dose the Coumadin for therapeutic INR of 2 to 3. We will recheck an INR in the a.m. No bleeding complications noted. 3. Hypertension. The patient seems to be normotensive. Continue with Toprol- XL for now. Try to avoid any hypotensive episodes. She received fluid bolus for episode of hypotension after starting the Cardizem bolus, which is normalized at this time. 4. Hyperlipidemia. Continue statin. 5. Deep vein thrombosis prophylaxis. The patient is currently on Coumadin. Continue the same. No indication for heparin products at this time. 6. Code status. The patient wants to be full code. 7. Discussed with family members at bedside. Discussed with ER physician regarding the plan of care. Reviewed the labs and medications. Reviewed the old charts. [facility] /[id number]
[2016-12-29] MEDS: Potassium Chloride 10 MEQ Tab.ER PO SCH (13:56)
[2016-12-29] MEDS: Metoprolol Succinate 50 MG Tab.ER PO SCH (13:56)
[2016-12-29] MEDS: Acetaminophen 325 MG Tab PO PRN (22:13)
[2016-12-30] MEDS ORDERED: Pantoprazole 40 MG Tab.CR PO SCH (06:00)
[2016-12-30 07:00] LABS: CHLORIDE,CL 109 mmol/L (101-111); SODIUM,NA 139 mmol/L (135-145)
[2016-12-30] MEDS ORDERED: CYANOCOBALAMIN 1000 MCG PO SCH (09:00)
[2016-12-30] MEDS ORDERED: Digoxin 125 MCG Tab PO SCH (09:00)
[2016-12-30] MEDS: Metoprolol Succinate 50 MG Tab.ER PO SCH (09:13)
[2016-12-30] MEDS: Potassium Chloride 10 MEQ Tab.ER PO SCH (09:14)
[2016-12-30 11:49] VITALS: BP 143/49
[2016-12-30] MEDS: Acetaminophen 325 MG Tab PO PRN (13:33)
[2016-12-30] MEDS ORDERED: Warfarin 2 MG Tab PO ONE (14:00)
--- NOTE | 2016-12-31 10:31 | DISCH ---
ADMITTING DIAGNOSIS: Atrial Fibrillation with RVR. DISCHARGE DIAGNOSIS: Atrial Fibrillation with RVR, Resolved. now in Normal sinus Rhythm. HISTORY OF PRESENTING ILLNESS: Mrs. Sierra Hinson is an 86-year-old female with medical history significant for paroxysmal atrial fibrillation, history of pulmonary embolism on chronic anticoagulation with Coumadin, history of non-ST- elevation myocardial infarction in the past requiring stenting to the ostial circumflex and also to the ostial left anterior descending artery with drug- eluting stent in the past, Kendrick's esophagus, admitted with chest palpitations and was noted to have atrial fibrillation with rapid ventricular response at the time of admission. Her heart rate was in the range of 150-160. She received IV Cardizem bolus and drip after which she switched back to normal sinus rhythm. While on this admission, she remained in normal sinus rhythm. Her blood pressure was in acceptable range. She remained asymptomatic. Her troponin was slightly elevated, but could be resulting from AFib with RVR. She denied any ongoing chest pains. No significant ST changes noted on this 12-lead EKG. She remained in normal sinus rhythm on the telemetry unit. She is discharged home in stable condition. She is advised to follow with her primary care physician next 1 week of time and to follow with Cardiology as scheduled. DISCHARGE MEDICATIONS: Include: 1. Tylenol 650 every 4 hours as needed for pain. 2. Cyanocobalamin 1000 mcg daily. 3. Digoxin 1 tablet daily 0.125 mg. 4. Toprol-XL 50 mg daily. 5. Nitroglycerin 0.4 mg sublingual as needed for chest pain. 6. Protonix 40 mg daily. 7. Potassium chloride 10 mEq daily. 8. Eye drops right eye twice a day. 9. Coumadin 2 mg daily. PHYSICAL EXAMINATION: On the day of discharge: Vital signs: Temperature of 98, pulse of 60, blood pressure of 143/49, respiratory rate of 20, and saturating at 99% on room air. General Appearance: The patient is well oriented to time, place, and person. Follows commands spontaneously. Cardiovascular System: S1, S2 heard with normal intensity. No gallops. Respiratory System: Clear to auscultation bilaterally. No wheeze. No crepitations. Abdomen: Soft. Bowel sounds positive. Nontender. No rigidity. Extremities: No edema bilateral lower extremities. Neurology: No gross focal neurological deficits. CONDITION ON ADMISSION: Poor. CONDITION ON DISCHARGE: Stable. ACTIVITY: As tolerated. DIET: Cardiac healthy diet. FOLLOWUP: Follow with primary care physician next 1 week of time and follow with Cardiology as scheduled. [facility] /[id number] MTDD
--- NOTE | 2017-01-23 13:33 | EKG ---
12/29/2016- JOEY CASTANO - EKG done on an 86-year-old female. First EKG at 7:44 a.m. showed a rapid atrial fibrillation with RVR, with a heart rate of 166, and rate related changes. [facility] /[id number]
--- NOTE | 2017-01-23 13:36 | EKG ---
12/29/2016- JOEY CASTANO - EKG done on an 86-year-old female at 11:39 a.m. showed sinus rhythm with a heart rate of 60 beats per minute, normal axis, normal intervals. [facility] /[id number]
== END 2016-12-30 14:11 | disposition home or self-care (01) ==
LOC: DL.ED 07:35 → DL.MS 09:18 → UNDOADMOB 09:18 → INTOOBSV 09:18 → DL.MS 10:37
PROVIDERS: ADMIT Internal Medicine; ATTEND Internal Medicine
DX: I48.91 Unspecified atrial fibrillation (principal); I10 Essential (primary) hypertension; E78.5 Hyperlipidemia, unspecified; I25.10 Atherosclerotic heart disease of native coronary artery without angina pectoris; K21.9 Gastro-esophageal reflux disease without esophagitis; F41.8 Other specified anxiety disorders; Z79.01 Long term (current) use of anticoagulants; Z79.899 Other long term (current) drug therapy; Z90.49 Acquired absence of other specified parts of digestive tract; Z90.710 Acquired absence of both cervix and uterus; Z95.5 Presence of coronary angioplasty implant and graft; Z98.890 Other specified postprocedural states; Z88.8 Allergy status to other drugs, medicaments and biological substances
CPT/HCPCS: 36415; 71010; 80048; 80053; 80162; 83735; 84100; 84443; 84484; 85025; 85027; 85610; 93005; 96365; 96376; 99285; A9270; J3490; J7030; J7050; 93010; 96361; 96366; 96375; G0378

== ENCOUNTER 2017-07-02 12:43 | Inpatient (IN) | payer MEDICARE, BC ==
--- NOTE | 2017-07-02 14:39 | PCM.HP ---
H&P History of Present Illness - General Date of Service: 07/02/17 Admit Problem/Dx: Weakness Source of Information: Patient, Old Records - History of Present Illness Initial Comments - Free Text/Narative: The patient is an 86-year-old lady with a history of atrial fibrillation, coronary artery disease, obstructive sleep apnea, fibromyalgia, irritable bowel disease, pulmonary embolism. He shouldn't underwent right hip arthroplasty Subsequently she was felt that that would need extended physical and occupational therapy. #1 status post right hip arthroplasty on 29 June Will have physical and occupational therapy Pain control with Ultram, Tylenol DVT prophylaxis with Lovenox and then photostatic evaluation with Coumadin #2 history of paroxysmal atrial fibrillation Control with metoprolol, Anticoagulation with Coumadin Target INR 2-3 #3 coronary artery disease Treat with aspirin, metoprolol #4 gastroesophageal reflux disease Treat with Protonix - Related Data Allergies/Adverse Reactions: Allergies Allergy/AdvReac Type Severity Reaction Status Date / Time diazepam [From Valium] Allergy Intermediate UNKNOWN Verified 12/29/16 07:38 lorazepam [From Ativan] Allergy Intermediate Depression Verified 12/29/16 07:38 oxycodone [Oxycodone] Allergy Intermediate confusion/s Verified 12/29/16 07:38 edation atorvastatin calcium Allergy Mild Muscle Verified 07/02/17 13:50 [From Lipitor] Aches ezetimibe [From Vytorin] Allergy Mild Muscle Verified 07/02/17 13:50 Aches morphine Allergy Mild Itching Verified 07/02/17 13:50 nefazodone [Nefazodone] Allergy Mild Insomnia Verified 07/02/17 13:50 rosuvastatin calcium Allergy Mild Muscle Verified 07/02/17 13:50 [From Crestor] Aches simvastatin [From Vytorin] Allergy Mild Muscle Verified 07/02/17 13:50 Aches trazodone Allergy Mild Insomnia Verified 07/02/17 13:50 buprenorphine Allergy Unknown UNKNOWN Verified 07/02/17 13:50 codeine Allergy Unknown unknown Verified 07/02/17 13:50 pentazocine lactate Allergy Unknown UNKNOWN Verified 07/02/17 13:50 [From Talwin] propoxyphene Allergy Unknown UNKNOWN Verified 07/02/17 13:50 Home Medications: Home Meds Nitroglycerin [Nitrostat] 0.4 mg PO ASDIRECTED PRN 10/31/13 [History] Cyanocobalamin (Vitamin B-12) [B-12] 1,000 mcg PO DAILY 09/12/16 [History] Digoxin 1 tab PO DAILY 11/14/16 [History] Metoprolol Succinate [Toprol XL] 50 mg PO DAILY 11/14/16 [History] Pantoprazole [ProTONIX] 40 mg PO ACBREAKFAST 30 Days tab.cr 11/14/16 [Rx] Potassium Chloride 10 meq PO DAILY 12/29/16 [History] Warfarin [Coumadin] 2.5 mg PO DAILY 12/29/16 [History] Acetaminophen 1,000 mg PO Q6H PRN 07/02/17 [History] Aspirin [Ecotrin] 81 mg PO DAILY 07/02/17 [History] Magnesium Hydroxide [Milk of Magnesia] 30 ml PO DAILY 07/02/17 [History] diphenhydrAMINE [Benadryl] 25 mg PO BEDTIME PRN 07/02/17 [History] traMADol [Ultram] 100 mg PO Q6H PRN 07/02/17 [History] Past Medical History HEENT History: Reports: Cataract, Impaired Vision Other HEENT History: wears corrective lenses, occipital neuralgia Cardiovascular History: Reports: Afib, CAD, High Cholesterol, NC Respiratory History: Reports: Bronchitis, Recurrent, PE, Pneumonia, Recurrent, Sleep Apnea Other Respiratory History: Recurrent aspiration bronchitis/pneumonia Gastrointestinal History: Reports: Chronic Constipation, GERD, Hemorrhoids, Irritable Bowel Syndrome Other Gastrointestinal History: Kendrick's esophagus, duodenitis Genitourinary History: Reports: Renal Calculus [employer] History: Reports: , Other (See Below) Other OB/BYN History: 5 NVD and 1 miscarriage Musculoskeletal History: Reports: Arthritis, Fibromyalgia, Other (See Below) Other Musculoskeletal History: Forestier's disease, DDD, Fall Neurological History: Reports: Vertigo Psychiatric History: Reports: Anxiety, Depression Other Psychiatric History: Insomnia, mild memory impairment Endocrine/Metabolic History: Reports: Osteopenia, Other (See Below) Other Endocrine/Metabolic History: thyroid cyst Hematologic History: Reports: Anticoagulation Therapy, Other (See Below) Other Hematologic History: on warfarin for atrial fib Immunologic History: Reports: None Oncologic (Cancer) History: Reports: None Dermatologic History: Reports: None - Infectious Disease History Infectious Disease History: Reports: None - Past Surgical History Head Surgeries/Procedures: Reports: None HEENT Surgical History: Reports: Adenoidectomy, Cataract Surgery, Tonsillectomy Other HEENT Surgeries/Procedures: left eye surgery Cardiovascular Surgical History: Reports: Coronary Artery Stent, Varicose Other Cardiovascular Surgeries/Procedures: 2 stents Respiratory Surgical History: Reports: None GI Surgical History: Reports: Appendectomy, Cholecystectomy, Colonoscopy, EGD Other GI Surgeries/Procedures: Tubular Adenoma of colon, vein stripping Female Surgical History: Reports: Hysterectomy, Kidney stone extraction Endocrine Surgical History: Reports: None Neurological Surgical History: Reports: None Musculoskeletal Surgical History: Reports: None Oncologic Surgical History: Reports: None Dermatological Surgical History: Reports: None Social & Family History - Family History Family Medical History: Noncontributory - Tobacco Use Smoking Status *Q: Never Smoker Second Hand Smoke Exposure: No - Caffeine Use Caffeine Use: Reports: Coffee Caffeine Use Comment: seldom - Alcohol Use Days Per Week of Alcohol Use: 0 - Recreational Drug Use Recreational Drug Use: No - Living Situation & Occupation Occupation: Retired H&P Review of Systems - Review of Systems: Review Of Systems: See Below General: Denies: Fever Pulmonary: Denies: Shortness of Breath Cardiovascular: Denies: Chest Pain, Edema Musculoskeletal: Reports: Leg Pain (Right hip) Psychiatric: Denies: Confusion Exam - Exam Exam: See Below - Vital Signs Vital Signs: Last Vital Signs Temp 37.1 C 07/02/17 13:52 Pulse 74 07/02/17 13:52 Resp 20 07/02/17 13:52 BP 122/58 L 07/02/17 13:52 Pulse Ox 99 07/02/17 13:52 Weight: 61.326 kg - Exam General: Alert, Oriented Neck: Supple Lungs: Clear to Auscultation, Normal Respiratory Effort, Decreased Breath Sounds Cardiovascular: Regular Rate, Regular Rhythm GI/Abdominal Exam: Normal Bowel Sounds, Soft, Non-Tender Extremities: No Pedal Edema Problem List Initiated/Reviewed/Updated: Yes Orders Last 24hrs: Active Orders 24 hr Category Date Time Status INR,PT,PROTHROMBIN TIME [COAG] AM Lab 07/03/17 05:11 Ordered INR,PT,PROTHROMBIN TIME [COAG] AM Lab 07/04/17 05:11 Ordered INR,PT,PROTHROMBIN TIME [COAG] AM Lab 07/05/17 05:11 Ordered INR,PT,PROTHROMBIN TIME [COAG] AM Lab 07/06/17 05:11 Ordered INR,PT,PROTHROMBIN TIME [COAG] AM Lab 07/07/17 05:11 Ordered INR,PT,PROTHROMBIN TIME [COAG] AM Lab 07/08/17 05:11 Ordered INR,PT,PROTHROMBIN TIME [COAG] AM Lab 07/09/17 05:11 Ordered INR,PT,PROTHROMBIN TIME [COAG] AM Lab 07/10/17 05:11 Ordered INR,PT,PROTHROMBIN TIME [COAG] AM Lab 07/11/17 05:11 Ordered INR,PT,PROTHROMBIN TIME [COAG] AM Lab 07/12/17 05:11 Ordered INR,PT,PROTHROMBIN TIME [COAG] AM Lab 07/13/17 05:11 Ordered Acetaminophen [Tylenol Extra Strength] Med 07/02/17 14:31 Ordered 1,000 mg PO Q6H PRN Aspirin [Halfprin] Med 07/03/17 09:00 Ordered 81 mg PO DAILY Cyanocobalamin (Vitamin B-12) [B-12] Med 07/03/17 09:00 Ordered 1,000 mcg PO DAILY Digoxin [Lanoxin] Med 07/03/17 09:00 Ordered 1 tab PO DAILY Enoxaparin [Lovenox] Med 07/02/17 21:00 Ordered 30 mg SUBCUT Q12HR Metoprolol Succinate [Toprol XL] Med 07/03/17 09:00 Ordered 50 mg PO DAILY Pantoprazole [ProTONIX] Med 07/03/17 06:00 Ordered 40 mg PO ACBREAKFAST Potassium Chloride [Potassium Chloride] Med 07/03/17 09:00 Ordered 10 meq PO DAILY Warfarin Pharmacy to Dose [Pharmacy to Dose - Warfarin] Med 07/03/17 09:00 Ordered 1 dose .XX DAILY diphenhydrAMINE [Benadryl] Med 07/02/17 14:31 Ordered 25 mg PO BEDTIME PRN traMADol [Ultram] Med 07/02/17 14:31 Ordered 100 mg PO Q6H PRN
[2017-07-02] MEDS ORDERED: Acetaminophen 325 MG Tab PO PRN (14:41)
[2017-07-02] MEDS ORDERED: Ondansetron 4 MG Tab.DIS PO PRN (14:41)
[2017-07-02] MEDS ORDERED: Zolpidem 5 MG Tab PO PRN (14:41)
[2017-07-03] MEDS: Enoxaparin 30 MG/0.3 ML Syringe SUBCUT SCH ×3 (03:18→21:26)
[2017-07-03] MEDS ORDERED: oxyCODONE 5 MG Tab PO PRN (04:17)
[2017-07-03] MEDS ORDERED: Morphine 4 MG/ML Syringe IV PRN (04:18)
[2017-07-03] MEDS: Pantoprazole 40 MG Tab.CR PO SCH (04:59)
[2017-07-03] MEDS: Potassium Chloride 10 MEQ Tab.ER PO SCH (08:55)
[2017-07-03] MEDS: Aspirin 81 MG Tab.EC PO SCH (08:55)
[2017-07-03] MEDS: Digoxin 125 MCG Tab PO SCH (08:57)
[2017-07-03] MEDS ORDERED: Digoxin 125 MCG Tab PO SCH (09:00)
[2017-07-03] MEDS: Cyanocobalamin (Vitamin B12) 100 MCG Tab PO SCH (09:02)
[2017-07-03] MEDS: traMADol 50 MG Tab PO PRN (13:53)
[2017-07-03] MEDS ORDERED: Warfarin 5 MG Tab PO ONE (14:00)
[2017-07-03] MEDS: Metoprolol Succinate 50 MG Tab.ER PO SCH (17:02)
[2017-07-03] MEDS: Acetaminophen 500 MG Tab PO PRN (17:03)
[2017-07-04] MEDS: Pantoprazole 40 MG Tab.CR PO SCH (05:38)
[2017-07-04] MEDS: Digoxin 125 MCG Tab PO SCH (08:40)
[2017-07-04] MEDS: Metoprolol Succinate 50 MG Tab.ER PO SCH (08:41)
[2017-07-04] MEDS: Potassium Chloride 10 MEQ Tab.ER PO SCH (08:42)
[2017-07-04] MEDS: Cyanocobalamin (Vitamin B12) 100 MCG Tab PO SCH (08:42)
[2017-07-04] MEDS: Aspirin 81 MG Tab.EC PO SCH (08:42)
[2017-07-04] MEDS: Enoxaparin 30 MG/0.3 ML Syringe SUBCUT SCH ×2 (08:43→21:36)
[2017-07-04] MEDS: Acetaminophen 500 MG Tab PO PRN ×2 (09:20→15:27)
[2017-07-04] MEDS ORDERED: Warfarin 5 MG Tab PO ONE (14:00)
[2017-07-05] MEDS: Pantoprazole 40 MG Tab.CR PO SCH (05:38)
[2017-07-05] MEDS: Cyanocobalamin (Vitamin B12) 100 MCG Tab PO SCH (08:31)
[2017-07-05] MEDS: Metoprolol Succinate 50 MG Tab.ER PO SCH (08:33)
[2017-07-05] MEDS: Aspirin 81 MG Tab.EC PO SCH (08:35)
[2017-07-05] MEDS: Digoxin 125 MCG Tab PO SCH (08:35)
[2017-07-05] MEDS: Potassium Chloride 10 MEQ Tab.ER PO SCH (08:35)
[2017-07-05] MEDS: Enoxaparin 30 MG/0.3 ML Syringe SUBCUT SCH ×2 (08:36→21:11)
[2017-07-05] MEDS ORDERED: Warfarin 5 MG Tab PO ONE (14:00)
[2017-07-05] MEDS: diphenhydrAMINE 25 MG Tab PO PRN (21:12)
[2017-07-05] MEDS: Acetaminophen 500 MG Tab PO PRN (21:12)
[2017-07-06] MEDS: traMADol 50 MG Tab PO PRN ×2 (00:52→09:11)
[2017-07-06] MEDS: Pantoprazole 40 MG Tab.CR PO SCH (05:57)
[2017-07-06] MEDS: Cyanocobalamin (Vitamin B12) 100 MCG Tab PO SCH (09:39)
[2017-07-06] MEDS: Metoprolol Succinate 50 MG Tab.ER PO SCH (09:41)
[2017-07-06] MEDS: Aspirin 81 MG Tab.EC PO SCH (09:41)
[2017-07-06] MEDS: Digoxin 125 MCG Tab PO SCH (09:42)
[2017-07-06] MEDS: Potassium Chloride 10 MEQ Tab.ER PO SCH (09:42)
[2017-07-07] MEDS: Pantoprazole 40 MG Tab.CR PO SCH (06:06)
[2017-07-07] MEDS: Cyanocobalamin (Vitamin B12) 100 MCG Tab PO SCH (08:23)
[2017-07-07] MEDS: Acetaminophen 500 MG Tab PO PRN (08:32)
[2017-07-07] MEDS: Digoxin 125 MCG Tab PO SCH (08:33)
[2017-07-07] MEDS: Potassium Chloride 10 MEQ Tab.ER PO SCH (08:33)
[2017-07-07] MEDS: Metoprolol Succinate 50 MG Tab.ER PO SCH (08:33)
[2017-07-07] MEDS: Aspirin 81 MG Tab.EC PO SCH (08:33)
[2017-07-07] MEDS: traMADol 50 MG Tab PO PRN ×2 (11:27→20:40)
[2017-07-08] MEDS: Pantoprazole 40 MG Tab.CR PO SCH (06:23)
[2017-07-08] MEDS: Acetaminophen 500 MG Tab PO PRN ×2 (07:41→14:52)
[2017-07-08] MEDS: Cyanocobalamin (Vitamin B12) 100 MCG Tab PO SCH ×2 (07:42→10:11)
[2017-07-08] MEDS: Aspirin 81 MG Tab.EC PO SCH ×2 (07:44→10:11)
[2017-07-08] MEDS: Potassium Chloride 10 MEQ Tab.ER PO SCH ×2 (07:44→10:11)
[2017-07-08] MEDS: Metoprolol Succinate 50 MG Tab.ER PO SCH ×2 (07:44→10:11)
[2017-07-08] MEDS: Digoxin 125 MCG Tab PO SCH ×2 (07:44→10:11)
[2017-07-08] MEDS ORDERED: Magnesium Hydroxide 400 MG/5 ML Susp 30 ML Cup PO PRN (18:25)
[2017-07-08] MEDS: diphenhydrAMINE 25 MG Tab PO PRN (21:40)
[2017-07-09] MEDS: Pantoprazole 40 MG Tab.CR PO SCH (06:13)
[2017-07-09] MEDS: Cyanocobalamin (Vitamin B12) 100 MCG Tab PO SCH (08:22)
[2017-07-09] MEDS: Digoxin 125 MCG Tab PO SCH (08:23)
[2017-07-09] MEDS: Metoprolol Succinate 50 MG Tab.ER PO SCH (08:23)
[2017-07-09] MEDS: Aspirin 81 MG Tab.EC PO SCH (08:23)
[2017-07-09] MEDS: Potassium Chloride 10 MEQ Tab.ER PO SCH (08:23)
--- NOTE | 2017-07-09 13:35 | PN ---
DATE: 07/09/2017 HISTORY OF PRESENT ILLNESS: Ms. Sierra Hinson is an 86-year-old female with medical history significant for hypertension, hyperlipidemia, history of atrial fibrillation, coronary artery disease, obstructive sleep apnea, fibromyalgia, irritable bowel disease, pulmonary embolism, is status post right hip arthroplasty on June 29, admitted to the swing bed for continued PT, OT. For the last 24 hours, the patient denies any complaints of chest pain. No shortness of breath. No abdominal pain. No nausea. No vomiting. No diarrhea. Complains of mild pain at the surgical site which is the right hip, aggravated on ambulation, relieved with pain medication, nonradiating type of pain, not associated with nausea or vomiting. REVIEW OF SYSTEMS: Cardiovascular, respiratory, gastrointestinal, neurology, constitutional were all evaluated. PHYSICAL EXAMINATION: Vital Signs: Temperature of 98.7, pulse of 70, blood pressure 115/46, respiratory rate of 18, saturating at 97% on room air. General Appearance: The patient is well oriented to time, place, and person. Follows commands spontaneously. Cardiovascular System: S1, S2 heard with normal intensity. No gallops. Respiratory System: Clear to auscultation bilaterally. No wheeze. No crepitations. Abdomen: Soft. Bowel sounds positive. Nontender. No rigidity. Extremities: No edema in bilateral lower extremities. Neurology: No gross focal neurological deficit. MEDICATIONS: 1. Tylenol 1000 mg every 6 hours as needed for pain. 2. Aspirin 81 mg daily. 3. Vitamin B12 1000 mg daily. 4. Digoxin 125 mcg daily. 5. Milk of magnesium 15 mL twice a day as needed for constipation. 6. Toprol-XL 50 mg daily. 7. Oxycodone 5 mg every 4 hours as needed for pain. 8. Protonix 40 mg daily. 9. Potassium chloride 10 mEq daily. 10.Ultram 100 mg every 6 hours as needed for pain. 11.Coumadin, pharmacy to dose. LABORATORY DATA: INR of 2.5, PT of 24.7. ASSESSMENT: 1. Right hip fracture, status post surgical repair with arthroplasty. 2. Hypertension. 3. Hyperlipidemia. 4. History of paroxysmal atrial fibrillation. 5. Chronic anticoagulation with Coumadin. 6. History of coronary artery disease. 7. History of pulmonary embolism in the past. PLAN: 1. Status post right hip arthroplasty. The patient responding well to the treatment. Continue with PT, OT. Continue with pain medications for good control. 2. Hypertension. The patient's blood pressure seems to be in acceptable range. Continue with current antihypertensive medications with Toprol-XL. 3. Atrial fibrillation. The patient's rate is well controlled at this time. Continue digoxin, Toprol-XL. She is noted to be on Coumadin, continue the same. 4. History of pulmonary embolism. The patient is currently on Coumadin and her INR remains therapeutic. Appreciate pharmacy to dose the Coumadin for therapeutic INR of 2 to 3. [facility] /[id number]
[2017-07-09] MEDS: Acetaminophen 500 MG Tab PO PRN ×2 (13:45→22:56)
[2017-07-09] MEDS ORDERED: Warfarin 2.5 MG Tab PO ONE (14:30)
[2017-07-09] MEDS: diphenhydrAMINE 25 MG Tab PO PRN (21:58)
[2017-07-10] MEDS: Pantoprazole 40 MG Tab.CR PO SCH (05:57)
[2017-07-10] MEDS: Potassium Chloride 10 MEQ Tab.ER PO SCH (09:03)
[2017-07-10] MEDS: Acetaminophen 500 MG Tab PO PRN (09:04)
[2017-07-10] MEDS: Aspirin 81 MG Tab.EC PO SCH (09:04)
[2017-07-10] MEDS: Metoprolol Succinate 50 MG Tab.ER PO SCH (10:51)
[2017-07-10] MEDS: Digoxin 125 MCG Tab PO SCH (10:51)
[2017-07-10] MEDS: Cyanocobalamin (Vitamin B12) 100 MCG Tab PO SCH (10:52)
[2017-07-10] MEDS ORDERED: Warfarin 2.5 MG Tab PO ONE (14:00)
[2017-07-11] MEDS: Pantoprazole 40 MG Tab.CR PO SCH (06:15)
[2017-07-11] MEDS: Cyanocobalamin (Vitamin B12) 100 MCG Tab PO SCH (08:00)
[2017-07-11] MEDS: Acetaminophen 500 MG Tab PO PRN ×2 (08:02→14:06)
[2017-07-11] MEDS: Potassium Chloride 10 MEQ Tab.ER PO SCH (08:03)
[2017-07-11] MEDS: Aspirin 81 MG Tab.EC PO SCH (08:03)
[2017-07-11] MEDS: Digoxin 125 MCG Tab PO SCH (08:03)
[2017-07-11] MEDS: Metoprolol Succinate 50 MG Tab.ER PO SCH (08:04)
[2017-07-11] MEDS ORDERED: Warfarin 2 MG Tab PO ONE (14:00)
[2017-07-11] MEDS: traMADol 50 MG Tab PO PRN (20:16)
[2017-07-11] MEDS: diphenhydrAMINE 25 MG Tab PO PRN (20:16)
[2017-07-12] MEDS: Pantoprazole 40 MG Tab.CR PO SCH (07:02)
[2017-07-12 07:58] VITALS: BP 127/50
[2017-07-12] MEDS: Metoprolol Succinate 50 MG Tab.ER PO SCH (08:22)
[2017-07-12] MEDS: Digoxin 125 MCG Tab PO SCH (08:22)
[2017-07-12] MEDS: Potassium Chloride 10 MEQ Tab.ER PO SCH (08:22)
[2017-07-12] MEDS: Aspirin 81 MG Tab.EC PO SCH (08:22)
--- NOTE | 2017-07-12 09:50 | PCM.DCSUM1 ---
Discharge Summary - Hospital Course Free Text/Narrative:: The patient is an 86-year-old lady with a history of atrial fibrillation, coronary artery disease, obstructive sleep apnea, fibromyalgia, irritable bowel disease, pulmonary embolism. He shouldn't underwent right hip arthroplasty Subsequently she was felt that that would need extended physical and occupational therapy and was admitted to swing bed. #1 status post right hip arthroplasty on 29 June worked well and improved with physical and occupational therapy Pain control with Ultram, Tylenol DVT prophylaxis with Coumadin #2 history of paroxysmal atrial fibrillation Control with metoprolol, Anticoagulation with Coumadin Target INR 2-3 #3 coronary artery disease Treat with aspirin, metoprolol #4 gastroesophageal reflux disease Treat with Protonix - Discharge Data Discharge Date: 07/12/17 Discharge Disposition: Home, Self-Care 01 Condition: Good - Patient Summary/Data Consults: Consultations 07/02/17 14:47 OT Evaluation and Treatment [CONS] Routine PT Evaluation and Treatment [CONS] Routine - Patient Instructions Diet: Heart Healthy Diet Activity: As Tolerated - Discharge Plan Home Medications: Home Meds Nitroglycerin [Nitrostat] 0.4 mg PO ASDIRECTED PRN 10/31/13 [History] Cyanocobalamin (Vitamin B-12) [B-12] 1,000 mcg PO DAILY 09/12/16 [History] Digoxin 1 tab PO DAILY 11/14/16 [History] Metoprolol Succinate [Toprol XL] 50 mg PO DAILY 11/14/16 [History] Pantoprazole [ProTONIX] 40 mg PO ACBREAKFAST 30 Days tab.cr 11/14/16 [Rx] Potassium Chloride 10 meq PO DAILY 12/29/16 [History] Warfarin [Coumadin] 2.5 mg PO DAILY 12/29/16 [History] Acetaminophen 1,000 mg PO Q6H PRN 07/02/17 [History] Aspirin [Ecotrin] 81 mg PO DAILY 07/02/17 [History] Magnesium Hydroxide [Milk of Magnesia] 30 ml PO DAILY 07/02/17 [History] diphenhydrAMINE [Benadryl] 25 mg PO BEDTIME PRN 07/02/17 [History] traMADol [Ultram] 100 mg PO Q6H PRN 07/02/17 [History] Referrals: Mare Beck MD [Primary Care Provider] - (in 3-4 days , check INR) - General Info Date of Service: 07/12/17 - Review of Systems General: Denies: Fever Pulmonary: Denies: Shortness of Breath Cardiovascular: Denies: Chest Pain Gastrointestinal: Denies: Abdominal Pain Neurological: Denies: Confusion - Patient Data Vitals - Most Recent: Last Vital Signs Temp 36.6 C 07/12/17 07:58 Pulse 70 07/12/17 08:22 Resp 20 07/12/17 07:58 BP 127/50 L 07/12/17 08:22 Pulse Ox 98 07/12/17 07:58 Weight - Most Recent: 58.513 kg I&O - Last 24 hours: Intake & Output 07/11/17 07/12/17 07/12/17 22:59 06:59 14:59 Intake Total 360 Balance 360 Lab Results - Last 24 hrs: Laboratory Results - last 24 hr 07/12/17 Range/Units 06:28 PT 21.2 H (9.0-12.0) SEC INR 2.2 H (0.9-1.2) Med Orders - Current: Current Medications Acetaminophen (Tylenol Extra Strength) 1,000 mg PO Q6H PRN PRN Reason: Pain Last Admin: 07/11/17 14:06 Dose: 1,000 mg Aspirin (Halfprin) 81 mg PO DAILY [facility] Last Admin: 07/12/17 08:22 Dose: 81 mg Cyanocobalamin (Vitamin B12) 1,000 mcg PO DAILY [facility] Last Admin: 07/11/17 08:00 Dose: 1,000 mcg Digoxin (Lanoxin) 125 mcg PO DAILY [facility] Last Admin: 07/12/17 08:22 Dose: 125 mcg Diphenhydramine HCl (Benadryl) 25 mg PO BEDTIME PRN PRN Reason: Sleep Last Admin: 07/11/17 20:16 Dose: 25 mg Magnesium Hydroxide (Milk Of Magnesia) 15 ml PO BID PRN PRN Reason: Constipation Metoprolol Succinate (Toprol Xl) 50 mg PO DAILY [facility] Last Admin: 07/12/17 08:22 Dose: 50 mg Ondansetron HCl (Zofran Odt) 4 mg PO Q6H PRN PRN Reason: nausea, able to take PO Oxycodone HCl (Oxycodone) 5 mg PO Q4H PRN PRN Reason: Pain (moderate 4-6) Last Admin: 07/04/17 21:27 Dose: 5 mg Pantoprazole Sodium (Protonix) 40 mg PO ACBREAKFAST [facility] Last Admin: 07/12/17 07:02 Dose: 40 mg Potassium Chloride (Klor-Con 10) 10 meq PO DAILY [facility] Last Admin: 07/12/17 08:22 Dose: 10 meq Tramadol HCl (Ultram) 100 mg PO Q6H PRN PRN Reason: Pain Last Admin: 07/11/17 20:16 Dose: 100 mg Warfarin Sodium (Pharmacy To Dose - Warfarin) 1 dose .XX DAILY [facility] Discontinued Medications Acetaminophen (Tylenol) 650 mg PO Q4H PRN PRN Reason: Pain (Mild 1-3)/fever Digoxin (Lanoxin) mcg PO DAILY [facility] Enoxaparin Sodium (Lovenox) 30 mg SUBCUT Q12HR [facility] Stop: 07/05/17 21:01 Last Admin: 07/05/17 21:11 Dose: 30 mg Morphine Sulfate (Morphine) 1 mg IV Q4H PRN PRN Reason: Pain (severe 7-10) Warfarin Sodium (Coumadin) 5 mg PO ONETIME ONE Stop: 07/03/17 14:01 Last Admin: 07/03/17 13:53 Dose: 5 mg Warfarin Sodium (Coumadin) 5 mg PO ONETIME ONE Stop: 07/04/17 14:01 Last Admin: 07/04/17 14:15 Dose: 5 mg Warfarin Sodium (Coumadin) 5 mg PO ONETIME ONE Stop: 07/05/17 14:01 Last Admin: 07/05/17 13:24 Dose: 5 mg Warfarin Sodium (Coumadin) 3 mg PO ONETIME ONE Stop: 07/06/17 14:01 Last Admin: 07/06/17 13:24 Dose: 3 mg Warfarin Sodium (Coumadin) 3 mg PO ONETIME ONE Stop: 07/07/17 14:01 Last Admin: 07/07/17 15:42 Dose: 3 mg Warfarin Sodium (Coumadin) 1 mg PO ONETIME ONE Stop: 07/08/17 14:01 Last Admin: 07/08/17 14:52 Dose: 1 mg Warfarin Sodium (Coumadin) 2.5 mg PO ONETIME ONE Stop: 07/09/17 14:31 Last Admin: 07/09/17 15:15 Dose: 2.5 mg Warfarin Sodium (Coumadin) 2.5 mg PO ONETIME ONE Stop: 07/10/17 14:01 Last Admin: 07/10/17 15:04 Dose: 2.5 mg Warfarin Sodium (Coumadin) 2 mg PO ONETIME ONE Stop: 07/11/17 14:01 Last Admin: 07/11/17 14:06 Dose: 2 mg Zolpidem Tartrate (Ambien) 5 mg PO BEDTIME PRN PRN Reason: Sleep - Exam General: Reports: Alert, Oriented Lungs: Reports: Clear to Auscultation, Normal Respiratory Effort Cardiovascular: Reports: Regular Rate, Regular Rhythm Extremities: No Pedal Edema
[2017-07-12] MEDS: Cyanocobalamin (Vitamin B12) 100 MCG Tab PO SCH (10:12)
[2017-07-12] MEDS: Acetaminophen 500 MG Tab PO PRN (10:15)
[2017-07-12] MEDS ORDERED: Warfarin 2.5 MG Tab PO ONE (14:00)
== END 2017-07-12 13:25 | disposition home or self-care (01) | DRG 561 ==
LOC: DL.MS 13:30 → UNDOADMIN 13:30 → DL.MS 14:41
PROVIDERS: ADMIT Internal Medicine; ATTEND Internal Medicine
DX: Z47.1 Aftercare following joint replacement surgery (principal); Z96.641 Presence of right artificial hip joint; I25.10 Atherosclerotic heart disease of native coronary artery without angina pectoris; G47.33 Obstructive sleep apnea (adult) (pediatric); M79.7 Fibromyalgia; I48.0 Paroxysmal atrial fibrillation; K21.9 Gastro-esophageal reflux disease without esophagitis; H54.7 Unspecified visual loss; M54.81 Occipital neuralgia; E78.00 Pure hypercholesterolemia, unspecified; I25.2 Old myocardial infarction; K58.1 Irritable bowel syndrome with constipation; K29.80 Duodenitis without bleeding; K22.70 Barrett's esophagus without dysplasia; M19.90 Unspecified osteoarthritis, unspecified site; M35.3 Polymyalgia rheumatica; R42 Dizziness and giddiness; F41.9 Anxiety disorder, unspecified; F32.9 Major depressive disorder, single episode, unspecified; G47.00 Insomnia, unspecified; I10 Essential (primary) hypertension; R41.3 Other amnesia; M85.80 Other specified disorders of bone density and structure, unspecified site; Z90.49 Acquired absence of other specified parts of digestive tract; Z95.5 Presence of coronary angioplasty implant and graft; Z90.710 Acquired absence of both cervix and uterus; Z79.01 Long term (current) use of anticoagulants; Z79.82 Long term (current) use of aspirin; Z87.01 Personal history of pneumonia (recurrent); Z79.899 Other long term (current) drug therapy; Z88.6 Allergy status to analgesic agent; Z88.1 Allergy status to other antibiotic agents; Z87.442 Personal history of urinary calculi; Z86.711 Personal history of pulmonary embolism; Z88.5 Allergy status to narcotic agent; Z88.8 Allergy status to other drugs, medicaments and biological substances
CPT/HCPCS: 36415; 85610; 97110-GO; 97110-GP; 97116-GP; 97162-GP; 97165-GO; 97530-GO; 97535-GO; A9270-GY; J1650

== ENCOUNTER 2017-10-22 13:39 | Emergency (ER) | payer MEDICARE, BC ==
[~2017-10-22 13:39] MED LIST changes: -Dilation Soln 1 EA EACH EYERT ONE; +Lidocaine 2% Jelly 5 ML Tube ONE; -Moxifloxacin 0.5% Ophth Soln 3 ML Bottle EYERT ONE; -Phenylephrine 10% Ophth Soln 5 ML Bot EYERT ONE; -Povidone-Iodine 5% Sterile Ophth Soln 30 ML Bottle EYERT ONE; -Proparacaine 0.5% Ophth Soln 15 ML Bottle EYERT ONE; -Sodium Chloride 0.9% 10 ML Syringe FLUSH PRN; -Timolol Maleate 0.5% Ophth Soln 5 ML Bottle EYERT ONE
--- NOTE | 2017-10-22 13:39 | EDM.PDOC ---
ED HPI GENERAL MEDICAL PROBLEM - General Chief Complaint: Trauma Stated Complaint: TRAUMA CODE Time Seen by Provider: 10/22/17 13:01 Source of Information: Reports: EMS, Family History Limitations: Reports: Altered Mental Status - History of Present Illness INITIAL COMMENTS - FREE TEXT/NARRATIVE: HPI - This 87 yo female patient was brought to the ED by [facility] due to a ground level fall. The patient's reports that he was in the parking lot with the patient when she fell. The reports that he was just putting her walker in the car when he saw the patient spin around and fall to the ground. The patient is using a walker due to a recent right hip replacement. The patient was not talking comprehensive language since the fall. The patient arrived on a LSB with a c-collar inplace. Initial attempt to get a CT of her head resulted in too much movement of the patient to get any results. Primary Survey Airway - open, patient is breathing on her own Breathing - without labor Circulation - no profuse bleeding Deformity - pt expresses pain with palpation of the abdomen and pelvis no gross deformity Expose - minor bleeding from skin tears on arms, multiple bruises present GCS - 11 Secondary Survey HEENT Head - laceration and contusion to the right temporal area no profuse bleeding Eyes - pupils are dialated to a 6 sluggish, minimally reactive Ears - canals are clear Nose - clear, no blood Throat - dry no blood Neck - in c-collar, pt denies pain Chest - lung sounds are clear and equal bilaterally, no wheezing or rhonchi Abdomen - normoactive bowel sounds, no organomegally, patient reacted to palpation of the lower abdomen (response to pain) Pelvis - patient had recent right hip replacement surgery, expressed pain with palpation Extremities - numerous areas of bruising on all 4 extremities, skin tears on bilateral upper extremity Provider Trauma Notes Arrival Time: 1301 (from x-ray) GCS on Arrival: 11 C-collar present on arrival: yes GCS at 1 hour: intubated Off spine board: 1308 Time primary survey: 1302 Time secondary survey: 1315 Time C-collar cleared: not cleared (c-collar remained in place) By: Time removed: GCS on discharge: intubated Onset: Today Duration: Minutes: Location: Reports: Head, Upper Extremity, Left, Upper Extremity, Right, Lower Extremity, Left, Lower Extremity, Right Quality: Reports: Other Severity: Severe Improves with: Reports: None Worsens with: Reports: None Associated Symptoms: Reports: No Other Symptoms - Related Data Allergies Allergy/AdvReac Type Severity Reaction Status Date / Time diazepam [From Valium] Allergy Intermediate UNKNOWN Verified 12/29/16 07:38 lorazepam [From Ativan] Allergy Intermediate Depression Verified 12/29/16 07:38 oxycodone [Oxycodone] Allergy Intermediate confusion/s Verified 12/29/16 07:38 edation atorvastatin calcium Allergy Mild Muscle Verified 07/02/17 13:50 [From Lipitor] Aches ezetimibe [From Vytorin] Allergy Mild Muscle Verified 07/02/17 13:50 Aches morphine Allergy Mild Itching Verified 07/02/17 13:50 nefazodone [Nefazodone] Allergy Mild Insomnia Verified 07/02/17 13:50 rosuvastatin calcium Allergy Mild Muscle Verified 07/02/17 13:50 [From Crestor] Aches simvastatin [From Vytorin] Allergy Mild Muscle Verified 07/02/17 13:50 Aches trazodone Allergy Mild Insomnia Verified 07/02/17 13:50 buprenorphine Allergy Unknown UNKNOWN Verified 07/02/17 13:50 codeine Allergy Unknown unknown Verified 07/02/17 13:50 pentazocine lactate Allergy Unknown UNKNOWN Verified 07/02/17 13:50 [From Talwin] propoxyphene Allergy Unknown UNKNOWN Verified 07/02/17 13:50 Home Meds: Home Meds Nitroglycerin [Nitrostat] 0.4 mg PO ASDIRECTED PRN 10/31/13 [History] Cyanocobalamin (Vitamin B-12) [B-12] 1,000 mcg PO DAILY 09/12/16 [History] Digoxin 1 tab PO DAILY 11/14/16 [History] Metoprolol Succinate [Toprol XL] 50 mg PO DAILY 11/14/16 [History] Pantoprazole [ProTONIX] 40 mg PO ACBREAKFAST 30 Days tab.cr 11/14/16 [Rx] Potassium Chloride 10 meq PO DAILY 12/29/16 [History] Warfarin [Coumadin] 2.5 mg PO DAILY 12/29/16 [History] Acetaminophen 1,000 mg PO Q6H PRN 07/02/17 [History] Aspirin [Ecotrin] 81 mg PO DAILY 07/02/17 [History] Magnesium Hydroxide [Milk of Magnesia] 30 ml PO DAILY 07/02/17 [History] diphenhydrAMINE [Benadryl] 25 mg PO BEDTIME PRN 07/02/17 [History] traMADol [Ultram] 100 mg PO Q6H PRN 07/02/17 [History] Past Medical History HEENT History: Reports: Cataract, Impaired Vision Other HEENT History: wears corrective lenses, occipital neuralgia Cardiovascular History: Reports: Afib, CAD, High Cholesterol, NE Respiratory History: Reports: Bronchitis, Recurrent, PE, Pneumonia, Recurrent, Sleep Apnea Other Respiratory History: Recurrent aspiration bronchitis/pneumonia Gastrointestinal History: Reports: Chronic Constipation, GERD, Hemorrhoids, Irritable Bowel Syndrome Other Gastrointestinal History: Kendrick's esophagus, duodenitis Genitourinary History: Reports: Renal Calculus CONCHE OPERATOR History: Reports: , Other (See Below) Other CONCHE OPERATOR History: 5 NVD and 1 miscarriage Musculoskeletal History: Reports: Arthritis, Fibromyalgia, Other (See Below) Other Musculoskeletal History: Forestier's disease, DDD, Fall Neurological History: Reports: Vertigo Psychiatric History: Reports: Anxiety, Depression Other Psychiatric History: Insomnia, mild memory impairment Endocrine/Metabolic History: Reports: Osteopenia, Other (See Below) Other Endocrine/Metabolic History: thyroid cyst Hematologic History: Reports: Anticoagulation Therapy, Other (See Below) Other Hematologic History: on warfarin for atrial fib Immunologic History: Reports: None Oncologic (Cancer) History: Reports: None Dermatologic History: Reports: None - Infectious Disease History Infectious Disease History: Reports: None - Past Surgical History Head Surgeries/Procedures: Reports: None HEENT Surgical History: Reports: Adenoidectomy, Cataract Surgery, Tonsillectomy Other HEENT Surgeries/Procedures: left eye surgery Cardiovascular Surgical History: Reports: Coronary Artery Stent, Varicose Other Cardiovascular Surgeries/Procedures: 2 stents Respiratory Surgical History: Reports: None GI Surgical History: Reports: Appendectomy, Cholecystectomy, Colonoscopy, EGD Other GI Surgeries/Procedures: Tubular Adenoma of colon, vein stripping Female Surgical History: Reports: Hysterectomy, Kidney stone extraction Endocrine Surgical History: Reports: None Neurological Surgical History: Reports: None Musculoskeletal Surgical History: Reports: None Oncologic Surgical History: Reports: None Dermatological Surgical History: Reports: None Social & Family History - Family History Family Medical History: Noncontributory - Caffeine Use Caffeine Use: Reports: Coffee Caffeine Use Comment: seldom - Living Situation & Occupation Occupation: Retired Review of Systems - Review of Systems Review Of Systems: ROS reveals no pertinent complaints other than HPI. ED EXAM, GENERAL - Physical Exam Exam: See Below Exam Limited By: Altered Mental Status General Appearance: Moderate Distress, Thin, Other (altered mentaion) Eye Exam: Bilateral Eye: EOMI, PERRL (pupils were dialated to a 6 sluggish minimally reactive) Ears: Normal External Exam, Normal Canal, Hearing Grossly Normal, Normal TMs Nose: Normal Inspection, Normal Mucosa, No Blood Throat/Mouth: Normal Inspection, Normal Lips, Normal Teeth, Normal Gums, Normal Oropharynx, Normal Voice, No Airway Compromise Head: Other (laceration and contusion to the right anterior temporal) Neck: Other (C-collar remained in place) Respiratory/Chest: No Respiratory Distress, Lungs Clear, Normal Breath Sounds Cardiovascular: Normal Peripheral Pulses, Regular Rate, Rhythm GI/Abdominal: Other (expressed pain response with palpation of the lower abdomen ) (Female) Exam: Deferred Rectal (Female) Exam: Deferred Extremities: Other (multiple areas of bruising on all extremities, skin tears on upper extremities) Neurological: Other (The patient was vocalizing, but most of the communication was not comprehensible. The patient was more lucid just prior to sedation and intubation, but reverted back to garbled speach within seconds. ) Psychiatric: Other Skin Exam: Warm, Dry, Wound/Incision (listed above) Course - Orders/Labs/Meds Orders: Active Orders 24 hr Category Date Time Status UA W/MICROSCOPIC [URIN] Stat Lab 10/22/17 13:25 Ordered Labs: Laboratory Tests 10/22/17 10/22/17 10/22/17 Range/Units 13:10 13:10 13:10 WBC 9.2 (5.0-10.0) 10^3/uL RBC 3.69 L (4.2-5.4) 10^6/uL Hgb 12.1 (12.0-16.0) g/dL Hct 36.6 L (37.0-47.0) % MCV 99.2 (80-100) fL MCH 32.8 (27.0-34.0) pg MCHC 33.1 (33.0-35.0) g/dL Plt Count 252 (150-450) 10^3/uL Neut % (Auto) 65.0 (42.2-75.2) % Lymph % (Auto) 26.7 (20.5-50.1) % [place] % (Auto) 7.5 (2-8) % Eos % (Auto) 0.7 L (1.0-3.0) % Baso % (Auto) 0.1 (0.0-1.0) % Add Manual Diff Yes Neutrophils % (Manual) 59 (42-75) % Band Neutrophils % 1 % Lymphocytes % (Manual) 34 (20-50) % Monocytes % (Manual) 3 (2-8) % Eosinophils % (Manual) 1 (1-3) % Metamyelocytes % 1 Myelocytes % 1 PT 36.5 H D (9.0-12.0) SEC INR 3.8 H (0.9-1.2) Sodium 140 (135-145) mmol/L Potassium 4.2 (3.6-5.0) mmol/L Chloride 105 (101-111) mmol/L Carbon Dioxide 26.0 (21.0-31.0) mmol/L Anion Gap 13.2 BUN 12 (7-18) mg/dL Creatinine 0.7 (0.6-1.3) mg/dL Est Cr Clr Drug Dosing TNP Estimated GFR (MDRD) > 60 BUN/Creatinine Ratio 17.14 Glucose 144 H (74-105) mg/dL POC Glucose (83-110) mg/dl Calcium 9.2 (8.4-10.2) mg/dl Total Bilirubin 0.8 (0.2-1.0) mg/dL AST 35 (10-42) IU/L ALT 27 (10-60) IU/L Alkaline Phosphatase 36 L (42-121) IU/L Total Protein 6.7 (6.7-8.2) g/dl Albumin 3.8 (3.2-5.5) g/dl Globulin 2.9 Albumin/Globulin Ratio 1.31 Urine Color (YELLOW) Urine Appearance (CLEAR) Urine pH (5.0-9.0) Ur Specific [place] (1.005-1.030) Urine Protein (NEGATIVE) Urine Glucose (UA) (NEGATIVE) Urine Ketones (NEGATIVE) Urine Occult Blood (NEGATIVE) Urine Nitrite (NEGATIVE) Urine Bilirubin (NEGATIVE) Urine Urobilinogen (0.2-1.0) mg/dL Ur Leukocyte Esterase (NEGATIVE) Urine RBC /HPF Urine WBC (0-5/HPF) /HPF Ur Epithelial Cells /HPF Calcium Oxalate Crystal /HPF Urine Bacteria (0-FEW/HPF) /HPF Hyaline Casts /LPF Urine Mucus /LPF 10/22/17 10/22/17 Range/Units 13:20 13:27 WBC (5.0-10.0) 10^3/uL RBC (4.2-5.4) 10^6/uL Hgb (12.0-16.0) g/dL Hct (37.0-47.0) % MCV (80-100) fL MCH (27.0-34.0) pg MCHC (33.0-35.0) g/dL Plt Count (150-450) 10^3/uL Neut % (Auto) (42.2-75.2) % Lymph % (Auto) (20.5-50.1) % [place] % (Auto) (2-8) % Eos % (Auto) (1.0-3.0) % Baso % (Auto) (0.0-1.0) % Add Manual Diff Neutrophils % (Manual) (42-75) % Band Neutrophils % % Lymphocytes % (Manual) (20-50) % Monocytes % (Manual) (2-8) % Eosinophils % (Manual) (1-3) % Metamyelocytes % Myelocytes % PT (9.0-12.0) SEC INR (0.9-1.2) Sodium (135-145) mmol/L Potassium (3.6-5.0) mmol/L Chloride (101-111) mmol/L Carbon Dioxide (21.0-31.0) mmol/L Anion Gap BUN (7-18) mg/dL Creatinine (0.6-1.3) mg/dL Est Cr Clr Drug Dosing Estimated GFR (MDRD) BUN/Creatinine Ratio Glucose (74-105) mg/dL POC Glucose 138 H (83-110) mg/dl Calcium (8.4-10.2) mg/dl Total Bilirubin (0.2-1.0) mg/dL AST (10-42) IU/L ALT (10-60) IU/L Alkaline Phosphatase (42-121) IU/L Total Protein (6.7-8.2) g/dl Albumin (3.2-5.5) g/dl Globulin Albumin/Globulin Ratio Urine Color Yellow (YELLOW) Urine Appearance Slightly cloudy (CLEAR) Urine pH 6.0 (5.0-9.0) Ur Specific [place]cdonald 1.020 (1.005-1.030) Urine Protein Trace H (NEGATIVE) Urine Glucose (UA) Negative (NEGATIVE) Urine Ketones Negative (NEGATIVE) Urine Occult Blood Negative (NEGATIVE) Urine Nitrite Negative (NEGATIVE) Urine Bilirubin Negative (NEGATIVE) Urine Urobilinogen 1.0 (0.2-1.0) mg/dL Ur Leukocyte Esterase Negative (NEGATIVE) Urine RBC 5-10 H /HPF Urine WBC 10-20 H (0-5/HPF) /HPF Ur Epithelial Cells Rare /HPF Calcium Oxalate Crystal Few H /HPF Urine Bacteria Moderate H (0-FEW/HPF) /HPF Hyaline Casts Moderate H /LPF Urine Mucus Many H /LPF Meds: Medications Discontinued Medications Generic Name Dose Route Start Last Admin Trade Name Freq PRN Reason Stop Dose Admin Lidocaine HCl Confirm 10/22/17 13:37 Xylocaine 2% Jelly Administered 10/22/17 13:38 Dose 5 ml .ROUTE .STK-MED ONE Departure - Departure Time of Disposition: 13:49 Disposition: DC/Tfer to Acute Hospital 02 Condition: Serious Clinical Impression: Head trauma Qualifiers: Encounter type: initial encounter Qualified Code(s): S09.90XA - Unspecified injury of head, initial encounter Altered mental status Qualifiers: Altered mental status type: unspecified Qualified Code(s): R41.82 - Altered mental status, unspecified - Discharge Information *PRESCRIPTION DRUG MONITORING PROGRAM REVIEWED*: Not Applicable *COPY OF PRESCRIPTION DRUG MONITORING REPORT IN PATIENT SUSANA: Not Applicable Forms: Interfacility Transfer EMTALA Care Plan Goals: Discussed minimal history and examination results with Dr. Parker (ED Alt). Dr. Parker accepted the patient for continued evaluation and management. The patient was transported by [facility]. - My Orders Last 24 Hours: My Active Orders 10/22/17 13:25 UA W/MICROSCOPIC [URIN] Stat - Assessment/Plan Last 24 Hours: My Active Orders 10/22/17 13:25 UA W/MICROSCOPIC [URIN] Stat
[2017-10-22] MEDS ORDERED: Propofol 200 MG/20 ML SDV IV ONE (13:40)
[2017-10-22] MEDS ORDERED: Succinylcholine 200 MG/10 ML MDV IV ONE (13:40)
[2017-10-22] MEDS ORDERED: Rocuronium 50 MG/5 ML Vial IV ONE (13:40)
[2017-10-22 13:41] LABS: ANION GAP 13.2; CHLORIDE,CL 105 mmol/L (101-111); SODIUM,NA 140 mmol/L (135-145)
--- NOTE | 2017-10-22 14:14 | CR ---
CLINICAL HISTORY: 87-year-old female in the emergency department (trauma code) . INTERPRETATION: AP portable chest film confirms satisfactory midline location endotracheal tube with tip measuring 5 cm from ru. Satisfactory midline nasogastric tube placement with the tip curled back into the fundus of the stoma ch (LUQ). Cardiac pacemaker leads intact. External equipment monitor phototypesetting leads. Normal cardiac silhouette without cephalization of flow signs of alveolar edema or dependent pleural effusion. No lung mass, hilar lymphadenopathy or focal lobar pneumonia. No atelectasis/collapse. No pneumothorax.
== END 2017-10-22 13:59 ==
LOC: DL.ED 13:39
DX: S09.90XA Unspecified injury of head, initial encounter (principal); R41.82 Altered mental status, unspecified; S51.012A Laceration without foreign body of left elbow, initial encounter; S51.011A Laceration without foreign body of right elbow, initial encounter; S41.011A Laceration without foreign body of right shoulder, initial encounter; S01.411A Laceration without foreign body of right cheek and temporomandibular area, initial encounter; S80.11XA Contusion of right lower leg, initial encounter; W19.XXXA Unspecified fall, initial encounter
CPT/HCPCS: 31500; 36415; 51702; 71045; 80053; 81001; 82962; 85025; 85610; 99285; J0330; J2704